=== PATIENT | female | born 1955 | race Hispanic/Latino ===

== ENCOUNTER 2019-12-23 10:47 | Emergency (ER) | payer BC, MEDICARE, OTHER ==
[~2019-12-23] VITALS: Ht 154.9 cm; Wt 74.8 kg
[2019-12-23] MEDS ORDERED: SODIUM CHLORIDE 0.9% 1000ML 1,000 ML IV STA (10:57)
[2019-12-23] MEDS ORDERED: ONDANSETRON HCL INJ 2MG/ML 2ML 2 MG/ML VIAL IV STA ×2 (10:57→13:13)
[2019-12-23] MEDS ORDERED: FENTANYL CITRATE/PF 100MCG/2 ML INJ IV ONE (11:00)
[2019-12-23] MEDS ORDERED: DIATRIZOATE MEGL/DIATRIZOA SOD 30 ML BTL PO ONE (11:12)
[2019-12-23 11:48] LABS: BASOPHILS % 0.6 % (0.0-1.0); EOSINOPHILS # (AUTO) 0.2 (0.0-0.4); EOSINOPHILS % 2.5 % (0.0-6.0); HEMATOCRIT 45.7 % (34.2-44.1); HEMOGLOBIN 15.1 g/dL (12.0-16.0); LYMPHOCYTES # (AUTO) 2.1 (1.0-3.2); LYMPHOCYTES % 33.4 % (18.0-39.1); MEAN CORPUSCULAR VOLUME 90.9 fL (81-99); MONOCYTES # (AUTO) 0.5 (0.2-0.8); MONOCYTES % 7.7 % (4.4-11.3); NEUTROPHILS # (AUTO) 3.5 (2.1-6.9); NEUTROPHILS % 54.9 % (38.7-80.0); PLATELET COUNT 236 x10e3/uL (140-360); RED BLOOD COUNT 5.03 x10e6/uL (3.6-5.1); RED CELL DISTRIBUTION WIDTH 13.1 % (11.7-14.4)
[2019-12-23 12:15] LABS: ALANINE AMINOTRANSFERASE 116 IU/L (0-55); ALBUMIN 4.2 g/dL (3.5-5.0); ALBUMIN/GLOBULIN RATIO 1.4 (0.8-2.0); ALKALINE PHOSPHATASE 94 IU/L (40-150); AMYLASE 51 U/L (25-125); ANION GAP 15.8 mmol/L (8-16); BLOOD UREA NITROGEN 12 mg/dL (7-26); BUN/CREATININE RATIO 13 (6-25); CALCIUM 9.8 mg/dL (8.4-10.2); CARBON DIOXIDE 25 mmol/L (22-29); CHLORIDE 103 mmol/L (98-107); CREATINE KINASE 78 IU/L (29-168); CREATININE, SERUM 0.94 mg/dL (0.57-1.11); EST GLOMERULAR FILTRATION RATE 60 ML/MIN (60-); GLUCOSE 260 mg/dL (74-118); LIPASE 95 U/L (8-78); MAGNESIUM 1.9 MG/DL (1.3-2.1); POTASSIUM 3.8 mmol/L (3.5-5.1); SODIUM 140 mmol/L (136-145)
[2019-12-23 12:20] LABS: BILIRUBIN,URINE NEGATIVE (NEGATIVE); CLARITY,URINE CLEAR (CLEAR); COLOR,URINE YELLOW (YELLOW); KETONES,URINE TRACE (NEGATIVE); LEUKOCYTE ESTERASE ,URINE NEGATIVE (NEGATIVE); NITRITE,URINE NEGATIVE (NEGATIVE); PROTEIN,URINE DIPSTICK NEGATIVE (NEGATIVE); URINE UROBILINOGEN 0.2 mg/dL (0.2 - 1)
[2019-12-23 12:23] LABS: BACTERIA,URINE RARE /HPF; EPITHELIAL CELLS,URINE FEW /LPF; RENAL EPITHELIAL CELLS,URINE FEW
[2019-12-23 12:24] LABS: MUCUS,URINE MANY (RARE)
--- NOTE | 2019-12-23 13:34 | Diagnostic Imaging Report ---
EXAMINATION: CHEST SINGLE (PORTABLE) INDICATION: Abdominal pain COMPARISON: CT abdomen and pelvis of the same day FINDINGS: LINES/TUBES:None LUNGS:The lung volumes are low. No focal consolidation or pulmonary edema. Right basilar subsegmental atelectasis. PLEURA:No pleural effusion or pneumothorax. MEDIASTINUM:The cardiomediastinal silhouette appears normal in size and shape. BONES/SOFT TISSUES:No acute osseous injury. ABDOMEN:No free air under the diaphragm. IMPRESSION: No focal pneumonia or pulmonary edema. Signed by: Patrizia Gibbons MD on 12/23/2019 1:31 PM
--- NOTE | 2019-12-23 13:41 | Diagnostic Imaging Report ---
EXAM: CT Abdomen and Pelvis WITH intravenous contrast INDICATION: Abdominal pain COMPARISON: Chest radiograph of the same day TECHNIQUE: Abdomen and pelvis were scanned utilizing a multidetector helical scanner from the lung base to the pubic symphysis after administration of IV contrast. Coronal and sagittal reformations were obtained. Routine protocol was performed. Scan was performed during portal venous phase. IV CONTRAST: 100mL of Isovue 370 ORAL CONTRAST: Gastrografin RADIATION DOSE: Total DLP: 499 mGy*cm Dose modulation, iterative reconstruction, and/or weight based adjustment of the mA/kV was utilized to reduce the radiation dose to as low as reasonably achievable. FINDINGS: LOWER THORAX: Normal. HEPATOBILIARY: Severe diffuse hepatic steatosis. No focal liver lesion. Numerous subcentimeter calcified granulomas throughout the liver. No biliary ductal dilation. Unremarkable gallbladder. SPLEEN: Scattered subcentimeter calcified granulomas throughout the nonenlarged spleen. PANCREAS: No focal masses or ductal dilatation. ADRENALS: No adrenal nodules. KIDNEYS/URETERS: No hydronephrosis, stones, or solid mass lesions. PELVIC ORGANS/BLADDER: Hysterectomy. PERITONEUM / RETROPERITONEUM: No free air or fluid. LYMPH NODES: No lymphadenopathy. VESSELS: Minimal atherosclerotic calcifications of the nonaneurysmal abdominal aorta and major branches. GI TRACT: No abnormal bowel thickening. No bowel obstruction. Status post appendectomy. BONES AND SOFT TISSUES: No acute osseous injury. No suspicious lytic or blastic lesions. IMPRESSION: No acute findings in the abdomen or pelvis. Specifically, no evidence of small bowel obstruction. Severe diffuse hepatic steatosis. Calcified granulomas throughout the liver and spleen, compatible with prior granulomas disease. Signed by: Patrizia Gibbons MD on 12/23/2019 1:37 PM
[2019-12-23] MEDS ORDERED: ULTRAM50 MG PO (14:02)
[2019-12-23] MEDS ORDERED: ZOFRAN4 MG SL (14:02)
[2019-12-23 14:04] VITALS: BP 148/90
[2019-12-23] MEDS ORDERED: IOPAMIDOL 370 MG/ML 200 ML INFUS..BTL INJ ONE (16:08)
[2019-12-23] MEDS ORDERED: SODIUM CHLORIDE 0.9% 50ML 50 ML ONE (16:08)
[2019-12-24] MEDS ORDERED: ATORVASTATIN CA20 MG PO (13:13)
[2019-12-24] MEDS ORDERED: FLUCONAZOLE100 MG PO (13:13)
[2019-12-24] MEDS ORDERED: CEFDINIR300 MG PO (13:15)
[2019-12-26] MEDS ORDERED: ONDANSETRON HCL4 MG (08:25)
== END 2019-12-23 14:22 | disposition home or self-care (01) ==
LOC: ER 10:47
DX: R10.11 Right upper quadrant pain (principal); R10.13 Epigastric pain; R74.0 Nonspecific elevation of levels of transaminase and lactic acid dehydrogenase [LDH]; N30.91 Cystitis, unspecified with hematuria
CPT/HCPCS: 36415; 71045; 74177; 80053; 81001; 82150; 82550; 82553; 83690; 83735; 84484; 85025; 99284; J2405; J3010; J7030; Q9967

== ENCOUNTER → 2019-12-26 | Day surgery (SDC) | payer MEDICARE ==
[~2019-12-26] MED LIST: ATORVASTATIN CA20 MG PO; CEFDINIR300 MG PO; FENTANYL CITRATE/PF 100MCG/2 ML INJ ONE; FLUCONAZOLE100 MG PO; GLUCAGON FOR INJ 1 MG VIAL ONE; HYOSCYAMINE 0.125 MG TAB ONE; LEVSIN-SL0.125 MG PO; METOCLOPRAMIDE HCL 10 MG/2ML VIAL ONE; MIDAZOLAM HCL 2 MG/2 ML VIAL ONE; ONDANSETRON HCL4 MG; ONDANSETRON ODT8 MG PO; PROPOFOL IV EMULSION 10 MG/ML 50 ML VIAL ONE; ULTRAM50 MG PO; ZOFRAN4 MG SL
--- OUTSIDE RECORDS SUMMARY | 2019-12-26 09:34 | XMS REPORT ---
Author Author [facility] Address Unknown Phone Unavailable Care Team Providers Care Solar Business Developer Name Role Phone YUKO CORMIER Unavailable Unavailable Problems This patient has no known problems. Allergies, Adverse Reactions, Alerts This patient has no known allergies or adverse reactions. Medications This patient has no known medications. 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 No focal consolidation or pulmonary edema. Right basilar subsegmental atelectasis. PLEURA:No pleural effusion or pneumothorax. MEDIASTINUM:The cardiomediastinal silhouette appears normal in size and shape. BONES/SOFT TISSUES:No acute osseous injury. ABDOMEN:No free air under the diaphragm. IMPRESSION: No focal pneumonia or pulmonary edema. Signed by: Geovanna Rincon MD on 12/23/2019 1:31 PM Dictated By: GEOVANNA RINCON MD [id number] Transcribed By: GILDARDO on 12/23/191330 COPY TO: YULIET GILMORE NP CT ABDOMEN/PELVIS W 2019-12-23 13:31:00 [place] [address] Patient Name: OPAL SHETH MR #: [id number] : 1955 Age/Sex: 64/F Req #: [id number] Adm Physician: Ordered by: YULIET GILMORE NP Report #: [id number] Location: ER Room/Bed: Procedure: [id number] CT/CT ABDOMEN/PELVIS W Exam Date: 12/23/19 Exam Time: 1250 REPORT STATUS: Signed EXAM: CT Abdomen and Pelvis WITH intravenous contrast INDICATION: Abdominal pain COMPARISON: Chest radiograph of the same day TECHNIQUE: Abdomen and pelvis were scanned utilizing a multidetector helical scanner from the lung base to the pubic symphysis after administration of IV contrast. Coronal and sagittal reformations were obtained. Routine protocol was performed. Scan was performed during portal venous phase. IV CONTRAST: 100mL of Isovue 370 ORAL CONTRAST: Gastrografin RADIATION DOSE: Total DLP: 499 mGy*cm Dose modulation, iterative reconstruction, and/or weight based adjustment of the mA/kV was utilized to reduce the radiation dose to as low as reasonably achievable. FINDINGS: LOWER THORAX: Normal. HEPATOBILIARY: Severe diffuse hepatic steatosis. No focal liver lesion. Numerous subcentimeter calcified granulomas throughout the liver. No biliary ductal dilation. Unremarkable gallbladder. SPLEEN: Scattered subcentimeter calcified granulomas throughout the nonenlarged spl een. PANCREAS: No focal masses or ductal dilatation. ADRENALS: No adrenal nodules. KIDNEYS/URETERS: No hydronephrosis, stones, or solid mass lesions. PELVIC ORGANS/BLADDER: Hysterectomy. PERITONEUM / RETROPERITONEUM: No free air or fluid. LYMPH NODES: No lymphadenopathy. VESSELS: Minimal atherosclerotic calcifications of the nonaneurysmal abdominal aorta and major branches. GI TRACT: No abnormal bowel thickening. No bowel obstruction. Status post appendectomy. BONES AND SOFT TISSUES: No acute osseous injury. No suspicious lytic or blastic lesions. IMPRESSION: No acute findings in the abdomen or pelvis. Specifically, no evidence of small bowel obstruction. Severe diffuse hepatic steatosis. Calcified granulomas throughout the liver and spleen, compatible with prior granulomas disease. Signed by: Geovanna Rincon MD on 12/23/2019 1:37 PM Dictated By: GEOVANNA RINCON MD [id number] Transcribed By: GILDARDO on 12/23/19 1337 COPY TO: YULIET GILMORE NP
[2019-12-26 10:55] VITALS: BP 115/52
--- NOTE | 2019-12-26 11:05 | Operative Report ---
DATE OF PROCEDURE: 12/26/2019 SURGEON: Surya aHssan MD PROCEDURE: EGD with biopsies and colonoscopy with polypectomy and biopsies. INDICATIONS FOR EGD: Upper abdominal pain, nausea, and vomiting. INDICATION FOR COLONOSCOPY: Diarrhea, chronic, rectal bleeding. MEDICATIONS: The patient was done under MAC, please see anesthesiologist's note. PROCEDURE IN DETAIL: With the patient in left lateral decubitus position, a flexible fiberoptic Olympus gastroscope was introduced into the esophagus under direct visualization without any difficulty. There were some patchy erythema noted in the distal esophagus. A minute tongue of velvety red mucosa was noted to extend proximally from the GE junction, that was biopsied to rule out Cortez. The scope was then advanced with ease into the stomach. Mucosa overlying the antrum and the body revealed some patchy erythema and [id number] edema, and biopsies were obtained and sent to stain for H pylori. Pylorus was of normal contour and shape, it was intubated with ease and the scope was advanced all the way to the second portion of the duodenum. Biopsies were obtained from the proximal second portion and duodenal bulb to rule out sprue. The scope was then withdrawn back into the stomach and retroflexed. Mucosa overlying the fundus and cardia appeared to be within normal limits. The scope was then straightened out, it was subsequently withdrawn. The patient tolerated the procedure well. IMPRESSION: 1. Distal esophagitis. 2. Rule out Cortez. 3. Gastritis, biopsied. Biopsies sent to stain for Helicobacter pylori. 4. Rule out sprue. PLAN: Follow up histology. Initiate Protonix 40 mg one p.o. q.a.m. before meals. The patient was then turned around. After adequate lubrication of the anal canal, a flexible fiberoptic Olympus colonoscope was inserted into the rectum with ease and advanced all the way to the cecum. Prep overall was fair and visualization was fair. Whatever was visualized the mucosa overlying the cecum appeared to be within normal limits. The ileocecal valve was intubated and the scope was advanced into the terminal ileum. Biopsies were obtained. The scope was then withdrawn slowly. Mucosa overlying the ascending and the distal two-thirds of the transverse colon grossly appeared to be within normal limits. One polyp was noted in the distal transverse colon, that was removed per hot biopsy forceps and site was hemoclipped x2. Mild patchy inflammatory changes noted in the left colon, multiple random biopsies were obtained. Some minimal diverticulosis was noted in the sigmoid colon. The scope was then retroflexed into the distal rectum and small internal hemorrhoids were noted, none of which was actively bleeding. The scope was then straightened out, it was subsequently withdrawn after securing an adequate stool specimen that was sent for the appropriate stool studies. The patient tolerated the procedure well. Small external hemorrhoids were also noted. IMPRESSION: 1. Transverse colon polyp, hot biopsied, site hemoclipped x2. 2. Mild patchy left-sided colitis. 3. Diverticulosis, minimal, sigmoid colon. 4. Proctitis, mild. 5. Internal hemorrhoids, none actively bleeding. 6. External hemorrhoids. PLAN: Follow up histology. Follow up stool studies. Initiate Bentyl 10 mg one p.o. t.i.d. VSL#3 one p.o. b.i.d. Anucort before meals suppositories b.i.d. x10 days and p.r.n. The patient might benefit from a followup colonoscopy in 5 years. Surya Hassan MD [facility] [place] /[id number] cc: Ming Guzman MD
[2019-12-26 15:31] LABS: C DIFFICILE TOXIN A&B AMP PROB NEGATIVE (NEGATIVE); WBC,FECAL (FECAL LACTOFERRIN) NEGATIVE (NEGATIVE)
== END | disposition home or self-care (01) ==
LOC: OR 07:45
PROVIDERS: ATTEND Internal Medicine Gastroenterology
DX: K29.50 Unspecified chronic gastritis without bleeding (principal); D12.3 Benign neoplasm of transverse colon; K51.50 Left sided colitis without complications; K29.80 Duodenitis without bleeding; K20.9 Esophagitis, unspecified; K22.8 Other specified diseases of esophagus; K57.30 Diverticulosis of large intestine without perforation or abscess without bleeding; K62.89 Other specified diseases of anus and rectum; K64.8 Other hemorrhoids; K64.4 Residual hemorrhoidal skin tags; G47.33 Obstructive sleep apnea (adult) (pediatric); I25.10 Atherosclerotic heart disease of native coronary artery without angina pectoris; I25.2 Old myocardial infarction; E78.5 Hyperlipidemia, unspecified; K76.0 Fatty (change of) liver, not elsewhere classified; D71 Functional disorders of polymorphonuclear neutrophils; Z01.810 Encounter for preprocedural cardiovascular examination; Z68.31 Body mass index [BMI] 31.0-31.9, adult; Z95.5 Presence of coronary angioplasty implant and graft
CPT/HCPCS: 43239; 45380; 45384; 83630; 83993; 87045; 87177; 87328; 87493; 93005; J1610; J2250; J2704; J2765; J3010; 45378

== ENCOUNTER 2019-12-30 16:14 | Emergency (ER) | payer BC, MEDICARE, OTHER ==
[~2019-12-30] VITALS: Ht 154.9 cm; Wt 74.8 kg
[~2019-12-30 16:14] MED LIST changes: -FENTANYL CITRATE/PF 100MCG/2 ML INJ ONE; -GLUCAGON FOR INJ 1 MG VIAL ONE; -HYOSCYAMINE 0.125 MG TAB ONE; -LEVSIN-SL0.125 MG PO; -METOCLOPRAMIDE HCL 10 MG/2ML VIAL ONE; -MIDAZOLAM HCL 2 MG/2 ML VIAL ONE; -ONDANSETRON ODT8 MG PO; -PROPOFOL IV EMULSION 10 MG/ML 50 ML VIAL ONE
[2019-12-30] MEDS ORDERED: ONDANSETRON HCL INJ 2MG/ML 2ML 2 MG/ML VIAL IV STA (17:21)
[2019-12-30] MEDS ORDERED: MORPHINE SULFATE INJ 4 MG/ML INJ 1ML IV STA (17:21)
[2019-12-30] MEDS ORDERED: SODIUM CHLORIDE 0.9% 1000ML 1,000 ML IV SCH (17:30)
[2019-12-30] MEDS ORDERED: SODIUM CHLORIDE FLUSH 10 ML SYR INJ PRN (17:30)
[2019-12-30] MEDS ORDERED: SODIUM CHLORIDE 0.9% 50ML 50 ML ONE (17:44)
[2019-12-30] MEDS ORDERED: IOPAMIDOL 370 MG/ML 200 ML INFUS..BTL INJ ONE (17:44)
[2019-12-30] MEDS ORDERED: ONDANSETRON HCL INJ 2MG/ML 2ML 2 MG/ML VIAL ONE (18:22)
[2019-12-30] MEDS ORDERED: SODIUM CHLORIDE 0.9% 1000ML 1,000 ML ONE (18:22)
[2019-12-30] MEDS ORDERED: MORPHINE SULFATE INJ 4 MG/ML INJ 1ML ONE (18:22)
--- NOTE | 2019-12-30 18:32 | Diagnostic Imaging Report ---
EXAM: CT Abdomen and Pelvis WITH contrast INDICATION: Abdominal pain. Rectal bleeding. Bloating. COMPARISON: 12/23/2019 TECHNIQUE: Abdomen and pelvis were scanned utilizing a multidetector helical scanner from the lung base to the pubic symphysis after administration of IV contrast. Coronal and sagittal reformations were obtained. Routine protocol was performed. Scan was performed when during portal venous phase. IV CONTRAST: 100 mL of Isovue 370 ORAL CONTRAST: None COMPLICATIONS: None RADIATION DOSE: Total DLP: 765 mGy*cm Estimated effective dose: (DLP x 0.015 x size factor) mSv CTDIvol has been reviewed. It is below the limits set by the Radiation Protocol Committee (RPC). Dose modulation, iterative reconstruction, and/or weight based adjustment of the mA/kV was utilized to reduce the radiation dose to as low as reasonably achievable. FINDINGS: LOWER THORAX: Normal. HEPATOBILIARY: Severe diffuse hepatic steatosis. No focal liver lesion. Numerous subcentimeter calcified granulomas throughout the liver. No biliary ductal dilation. Unremarkable gallbladder. SPLEEN: Scattered subcentimeter calcified granulomas throughout the nonenlarged spleen. PANCREAS: No focal masses or ductal dilatation. ADRENALS: No adrenal nodules. KIDNEYS/URETERS: No hydronephrosis, stones, or solid mass lesions. PELVIC ORGANS/BLADDER: Hysterectomy. PERITONEUM / RETROPERITONEUM: No free air or fluid. LYMPH NODES: No lymphadenopathy. VESSELS: Minimal atherosclerotic calcifications of the nonaneurysmal abdominal aorta and major branches. GI TRACT: No abnormal bowel thickening. No bowel obstruction. Status post appendectomy. Metallic clips in the ascending colon best seen on series 2 image 53. BONES AND SOFT TISSUES: No acute osseous injury. No suspicious lytic or blastic lesions. IMPRESSION: No acute findings in the abdomen or pelvis. Specifically, no evidence of small bowel obstruction. Metallic clips in the ascending colon best seen on series 2 image 53. Severe diffuse hepatic steatosis. Calcified granulomas throughout the liver and spleen, compatible with prior granulomas disease. Signed by: Dr. Waqas Peraza M.D. on 12/30/2019 6:29 PM
[2019-12-30 19:54] VITALS: BP 159/84
[2019-12-30] MEDS ORDERED: LEVSIN-SL0.125 MG PO (19:55)
[2019-12-30] MEDS ORDERED: ONDANSETRON ODT8 MG PO (19:55)
== END 2019-12-30 20:02 | disposition home or self-care (01) ==
LOC: FSED 16:14
DX: R10.84 Generalized abdominal pain (principal); R11.0 Nausea
CPT/HCPCS: 74177; 80053; 81003; 85025; 85610; 96374; 99284; J2405; J7030; Q9967; J2270

== ENCOUNTER → 2020-05-11 | Day surgery (SDC) | payer MEDICARE, OTHER ==
[2020-05-06 13:43] LABS: BASOPHILS % 0.5 % (0.0-1.0); EOSINOPHILS # (AUTO) 0.2 (0.0-0.4); EOSINOPHILS % 2.1 % (0.0-6.0); HEMATOCRIT 45.9 % (34.2-44.1); HEMOGLOBIN 14.6 g/dL (12.0-16.0); LYMPHOCYTES # (AUTO) 2.5 (1.0-3.2); LYMPHOCYTES % 31.8 % (18.0-39.1); MEAN CORPUSCULAR HEMOGLOBIN 28.7 pg (28-32); MEAN CORPUSCULAR HGB CONC 31.8 g/dL (31-35); MEAN CORPUSCULAR VOLUME 90.4 fL (81-99); MONOCYTES # (AUTO) 0.5 (0.2-0.8); MONOCYTES % 6.6 % (4.4-11.3); NEUTROPHILS # (AUTO) 4.5 (2.1-6.9); NEUTROPHILS % 58.4 % (38.7-80.0); PLATELET COUNT 216 x10e3/uL (140-360); RED BLOOD COUNT 5.08 x10e6/uL (3.6-5.1)
[2020-05-06 14:01] LABS: ANION GAP 15.7 mmol/L (8-16); BLOOD UREA NITROGEN 14 mg/dL (7-26); BUN/CREATININE RATIO 16 (6-25); CALCIUM 9.7 mg/dL (8.4-10.2); CARBON DIOXIDE 25 mmol/L (22-29); CHLORIDE 105 mmol/L (98-107); CREATININE, SERUM 0.88 mg/dL (0.57-1.11); EST GLOMERULAR FILTRATION RATE > 60 ML/MIN (60-); GLUCOSE 182 mg/dL (74-118); POTASSIUM 4.7 mmol/L (3.5-5.1); SODIUM 141 mmol/L (136-145)
[~2020-05-11] MED LIST changes: +BUPIVACAINE 0.25%/EPI 30ML SDV INJ ONE; +FENTANYL CITRATE/PF 100MCG/2 ML INJ ONE; +HYDROCODONE/APAP 7.5MG-325MG 1 EA TAB ONE; +KETOROLAC TROMETHAMINE 30 MG/ML VIAL ONE; +LEVSIN-SL0.125 MG PO; +LIDOCAINE HCL 1% LOCAL INJ 20 ML VIAL ONE; +LIDOCAINE HCL 2% 30 ML TUBE ONE; +LIDOCAINE HCL 2% LOCAL INJ 5 ML SDV VIAL INJ ONE; +MELOXICAM7.5 MG PO; +MIDAZOLAM HCL 2 MG/2 ML VIAL ONE; +ONDANSETRON HCL INJ 2MG/ML 2ML 2 MG/ML VIAL ONE; +ONDANSETRON ODT8 MG PO; +PHENYLEPHRINE HCL 1% 10 MG/ML VIAL ONE; +PROPOFOL IV EMULSION 10 MG/ML 20 ML VIAL ONE; +PROTONIX20 MG PO; +SEVOFLURANE INHAL SOLN 250 ML PEN BTL ONE
[2020-05-11 12:15] VITALS: BP 133/80
--- NOTE | 2020-05-11 14:08 | Operative Report ---
DATE OF PROCEDURE: 05/11/2020 SURGEON: Scar Manzano MD PREOPERATIVE DIAGNOSIS: Thrombosed prolapsing internal and external hemorrhoids. POSTOPERATIVE DIAGNOSIS: Thrombosed prolapsing internal and external hemorrhoids. OPERATION PERFORMED: Internal and external hemorrhoidectomy. ANESTHESIA: General. COMPLICATIONS: None. ESTIMATED BLOOD LOSS: Minimal. DESCRIPTION OF PROCEDURE: With the patient lying in bed in the supine position under good general endotracheal anesthesia, the patient was placed in lithotomy and the perineum was prepped with Betadine solution and draped in the usual manner. A complete anorectal block was then performed with a combination of 0.25% Marcaine and 1% xylocaine with epinephrine. After this was done, examination revealed the patient to have a large group of protruding prolapsing internal hemorrhoids at the 12 o'clock position with an external component to it. There was a 2nd group at the 4 o'clock position and group at the 12 o'clock position was done 1st. The base was ligated with an 0 chromic suture. The external component was then slowly and carefully resected and totally and completely removed. After this was done, the base of the hemorrhoid was then further oversewn with the same 0 chromic suture and the external incision was then closed by approximating the skin and the mucosa with interrupted sutures of 3-0 chromic. The hemorrhoid at the 4 o'clock position was then ligated with an 0 chromic suture. Hemostasis was ascertained. A Gelfoam pack impregnated with Xylocaine was placed. The dressing was applied. The sponge, lap, and needle count was correct. The patient tolerated the procedure well and returned to the recovery room in stable condition. MD ABDIAS Bullock/GILAL /[id number]
== END | disposition home or self-care (01) ==
LOC: OR 06:38
PROVIDERS: ATTEND Surgery
DX: K64.5 Perianal venous thrombosis (principal); K64.8 Other hemorrhoids; G47.33 Obstructive sleep apnea (adult) (pediatric); E78.5 Hyperlipidemia, unspecified; I25.10 Atherosclerotic heart disease of native coronary artery without angina pectoris; Z95.5 Presence of coronary angioplasty implant and graft
CPT/HCPCS: 36415; 46083; 46999; 80048; 85025; 93005; J1885; J2001 ×2; J2250; J2370; J2405; J2704; J3010; U0002

== ENCOUNTER 2020-05-27 11:43 | Emergency (ER) | payer BC, MEDICARE, OTHER ==
[~2020-05-27] VITALS: Ht 154.9 cm; Wt 68.9 kg
[~2020-05-27 11:43] MED LIST changes: -BUPIVACAINE 0.25%/EPI 30ML SDV INJ ONE; -FENTANYL CITRATE/PF 100MCG/2 ML INJ ONE; -HYDROCODONE/APAP 7.5MG-325MG 1 EA TAB ONE; -KETOROLAC TROMETHAMINE 30 MG/ML VIAL ONE; -LIDOCAINE HCL 1% LOCAL INJ 20 ML VIAL ONE; -LIDOCAINE HCL 2% 30 ML TUBE ONE; -LIDOCAINE HCL 2% LOCAL INJ 5 ML SDV VIAL INJ ONE; -MIDAZOLAM HCL 2 MG/2 ML VIAL ONE; -ONDANSETRON HCL INJ 2MG/ML 2ML 2 MG/ML VIAL ONE; -PHENYLEPHRINE HCL 1% 10 MG/ML VIAL ONE; -PROPOFOL IV EMULSION 10 MG/ML 20 ML VIAL ONE; -SEVOFLURANE INHAL SOLN 250 ML PEN BTL ONE
--- OUTSIDE RECORDS SUMMARY | 2020-05-27 11:55 | XMS REPORT | Continuity of Care Document ---
Author Author [facility] Organization [facility] Address [address] [place] [address] Phone Unavailable Care Team Providers Care Citrus Picker Name Role Phone AMBER CADET MD PCP KOURTNEY COLLADO Attphys Unavailable YUKO CORMIER Attphys Unavailable Payers Payer Name Policy Type Policy Number Effective Date Expiration Date S [facility] [id number] [facility] [id number] [id number] [facility] Problems This patient has no known problems. Allergies, Adverse Reactions, Alerts This patient has no known allergies or adverse reactions. Medications Ordered Medication Name Filled Medication Name Start Date Stop Da te Current Medication? Ordering Clinician Indication Dosage Frequency Signature (SIG) Comments Components Source Hyoscyamine Sulfate (Levsin-Sl) 0.125 Mg Tab.subl Hyos cyamine Sulfate (Levsin- Sl) 0.125 Mg Tab.subl 2019-12-30 00:00:00 Yes Adria Collado 2 Every 6 Hours as needed for Abdominal Pain [facility] Ondansetron (Ondansetron Odt) 8 Mg Tab.rapdis Ondanset reg (Ondansetron Odt) 8 Mg Tab.rapdis 2019-12-30 00:00:00 Yes Adria Collado 1 Every 6 Hours as needed for Nausea And Vomiting [facility] Ondansetron Hcl (Zofran*) 4 Mg Tablet, 4 Mg Sublingual Ondansetron Hcl (Zofran*) 4 Mg Tablet, 4 Mg Sublingual 2019-12-23 00:00:00 2019-12-24 00:00:00 No Bimal L Gilmore Sales Planner 4 Every 6 Hours as needed for Nausea [facility] Tramadol Hcl (Ultram) 50 Mg Tablet, 50 Mg Oral Tramado l Hcl (Ultram) 50 Mg Tablet, 50 Mg Oral 2019-12-23 00:00:00 2019-12-24 00:00:00 No Puma Gilmore Sales Planner 50 Every 6 Hours as needed for Abdominal Pa in [facility] Atorvastatin Calcium 20 Mg Tablet Atorvastatin Calcium 20 Mg Tablet Yes 20 Daily [facility] Cefdinir (Omnicef) 300 Mg Capsule Cefdinir (Omnicef) 300 Mg Capsule Yes 300 Twice A Day [facility] Ondansetron Hcl 4 Mg Tablet Ondansetron Hcl 4 Mg Tablet Yes As Needed [facility] Fluconazole 100 Mg Tablet, 150 Mg Oral Fluconazole 100 Mg Tablet , 150 Mg Oral 2019-12-26 00:00:00 No 150 One Dose [facility] Procedures Procedure Date / Time Performed Performing Clinician Sourc e EGD with biopsy 2019-12-26 00:00:00 RAIMUNDO SU [facility] Computed tomography of abdomen and pelvis with contrast 2019 00:00:00 BIMAL GILMORE [facility] Encounters Start Date/Time End Date/Time En[facility] ID Source 2019-12-30 16:14:00 2019-12-30 20:02:00 Departed Emergency Room 1 ADRIA COLLADO [facility] [id number] [facility] 2019-12-26 07:45:00 2019-12-26 07:45:00 Registered Surgical Day Care [facility] [id number] [facility] 2019-12-23 10:47:00 2019-12-23 14:22:00 Departed Emergency Room 1 HENRIETTACHEPEKaushikSTEVENKIM [facility] [id number] [facility] Results Test Description Test Time Test Comments Results Result Comments Source CT ABD/PEL WITH CONTRAST-HOPD 2019-12-30 18:22:00 [facility] [address] [address] Patient Name: OPAL SHETH MR #: [id number] : 1955 Age/Sex: 64/F Req #: [id number] Adm Physician: Ordered by: ADRIA COLLADO Report #: [id number] Location: [facility] Room/Bed: Procedure: [id number] HOPD/CT ABD/PEL WITH CONTRAST-HOPD Exam Date: 12/30/19 Exam Time: 1817 REPORT STATUS: Signed EXAM: CT Abdomen and Pelvis WITH contrast INDICATION: Abdominal pain. Rectal bleeding. Bloating. COMPARISON: 12/23/2019 TECHNIQUE: Abdomen and pelvis were scanned utilizing a multidetector helical scanner from the lung base to the pubic symphysis after administration of IV contrast. Coronal and sagittal reformations were obtained. Routine protocol was performed. Scan was performed when during portal venous phase. IV CONTRAST: 100 mL of Isovue 370 ORAL CONTRAST: None COMPLICATIONS: None RADIATION DOSE: Total DLP: 765 mGy*cm Estimated effective dose: (DLP x 0.015 x size facto r) mSv CTDIvol has been reviewed. It is below the limits set by the Radiation Protocol Committee (RPC). Dose modulation, iterative reconstruction, and/or weight based adjustment of the mA/kV was utilized to reduce the radiation dose to as low as reasonably achievable. FINDINGS: LOWER THORAX: Normal. HEPATOBILIARY: Severe diffuse hepatic steatosis. No focal liver lesion. Numerous subcentimeter calcified granulomas throughout the liver. No biliary ductal dilation. Unremarkable gallbladder. SPLEEN: Scattered subcentimeter calcified granulomas throughout the nonenlarged spleen. PANCREAS: No focal masses or ductal dilatation. ADRENALS: No adrenal nodules. KIDNEYS/URETERS: No hydronephrosis, stones, or solid mass lesions. PELVIC ORGANS/BLADDER: Hysterectomy. PERITONEUM / RETROPERITONEUM: No free air or fluid. LYMPH NODES: No lymphadenopathy. VESSELS: Minimal atherosclerotic calcifications of the nonaneurysmal abdominal aorta and major branches. GI TRACT: No abnormal bowel thickening. No bowel obstruction. Status post appendectomy. Metallic clips in the ascending colon best seen on series 2 image 53. BONES AND SOFT TISSUES: No acute osseous injury. No suspicious lytic or blastic lesions. IMPRESSION: No acute findings in the abdomen or pelvis. Specifically, no evidence of small bowel obstruction. Metallic clips in the ascending colon best seen on series 2 image 53. Severe diffuse hepatic steatosis. Calcified granulomas throughout the liver and spleen, compatible with prior granulomas disease. Signed by: Dr. Wero Urbano M.D. on 12/30/2019 6:29 PM Dictated By: WERO URBANO MD, MD 28 Transcribed By: GILDARDO on 12/30/191828 COPY TO: ADRIA COLLADO Stool Calprotectin 2019-12-30 13:09:00 Test Item Stool Calprotectin (test code = 66954-5) <16 0-120 Concentration Interpretation Follow-Up<16 - 50 ug/g Normal None>50 -120 ug/g Borderline Re-evaluate in 4-6 weeks >120 ug/g Abnormal Repeat as clinically indicatedPerformed at: [facility] Lab[address] [id number] Director: Aviva Thorne MD, Phone: [phone] [facility] Marshalltool Lactoferrin (LAB)2019-12-26 15:31:00* Test Item Value Reference Range Interpretation Comments Stool Lactoferrin (LAB) (test code = 13276-6) NEGATIVE NEGATIVE Testing on stool aspirate specimens is outside chemical plant operator claims since specime n type not validated on this assay.[facility] Clostridium Difficile Toxin A & [id number] 15:31:00* Test Item Value Reference Range Interpretation Comments Clostridium Difficile Toxin A & B (test code = 766392643) NEGATIVE NEGATIVE Testing on stool aspirate specimens is outside chemical plant operator claims since specime n type not validated on this assay.[facility] ([facility])2019-12-23 13:31:00 [id number] [address] Patient Name: OPAL SHETH MR #: [id number] : 1955 Age/Sex: 64/F Req #: [id number] Adm Physician: Ordered by: BIMAL GILMORE NP Report #: [id number] Location: ER Room/Bed: Procedure: [id number] DX /CHEST SINGLE (PORTABLE) Exam Date: 12/23/19 Exam Ti me: 1250 REPORT STATUS: Signed E XAMINATION: CHEST SINGLE (PORTABLE) INDICATION: Abdominal pain CO MPARISON: CT abdomen and pelvis of the same day FINDINGS: LINES/T UBES:None LUNGS:The lung volumes are low. No focal consolidation or pulmona ry edema. Right basilar subsegmental atelectasis. PLEURA:No pleural effus ion or pneumothorax. MEDIASTINUM:The cardiomediastinal silhouette appears n ormal in size and shape. BONES/SOFT TISSUES:No acute osseous injury. A BDOMEN:No free air under the diaphragm. IMPRESSION: No focal pneumoni a or pulmonary edema. Signed by: Geovanna Gibbons MD on 12/23/2019 1:31 PM Dictated By: GEOVANNA GIBBONS MD 1331 Transcribed By: GILDARDO on 12/23/19 1331 COPY TO: BIMAL GILMORE NP CT ABDOMEN/PELVIS [id number] 13:31:[address] [address] Patient Name: OPAL SHETH MR #: [id number] : 1955 Age/Sex: 64/F Req #: [id number] Adm Physician: Ordered by: BIMAL GILMORE NP Report #: [id number] Location: ER Room/Bed: Procedure: [id number] CT /CT ABDOMEN/PELVIS W Exam Date: 12/23/19 Exam Time: 1250 REPORT STATUS: Signed EXAM: CT Abdomen and Pelvis WITH intravenous contrast INDICATION: Abdominal pa in COMPARISON: Chest radiograph of the same day TECHNIQUE: Abdomen and pelvis were scanned utilizing a multidetector helical scanner from the lung b ase to the pubic symphysis after administration of IV contrast. Coronal and sa gittal reformations were obtained. Routine protocol was performed. Scan was pe rformed during portal venous phase. IV CONTRAST: 100mL of Isovue 370 ORAL CONTRAST: Gastrografin RADIATION DOSE: Total DLP: 499 mGy*cm Dose modulation, iterative reconstruction, and/or weight based adjustment of t he mA/kV was utilized to reduce the radiation dose to as low as reasonably ach ievable. FINDINGS: LOWER THORAX: Normal. HEPATOBILIARY: Severe diff use hepatic steatosis. No focal liver lesion. Numerous subcentimeter calcified granulomas throughout the liver. No biliary ductal dilation. Unremarkable gal lbladder. SPLEEN: Scattered subcentimeter calcified granulomas throughout t he nonenlarged spleen. PANCREAS: No focal masses or ductal dilatation. ADRENALS: No adrenal nodules. KIDNEYS/URETERS: No hydronephrosis, stones, or solid mass lesions. PELVIC ORGANS/BLADDER: Hysterectomy. PERITONEUM / R ETROPERITONEUM: No free air or fluid. LYMPH NODES: No lymphadenopathy. VESSE LS: Minimal atherosclerotic calcifications of the nonaneurysmal abdominal aort a and major branches. GI TRACT: No abnormal bowel thickening. No bowel obst ruction. Status post appendectomy. BONES AND SOFT TISSUES: No acute osseo us injury. No suspicious lytic or blastic lesions. IMPRESSION: No acut e findings in the abdomen or pelvis. Specifically, no evidence of small bowel obstruction. Severe diffuse hepatic steatosis. Calcified granulomas th roughout the liver and spleen, compatible with prior granulomas disease. Signed by: Geovanna Gibbons MD on 12/23/2019 1:37 PM Dictated By: GEOVANNA GIBBONS MD 36 Transcribed By: ELIZABETH VALENZUELA on 12/23/197 COPY TO: BIMAL GILMORE NP Creatine Kinase [id number] 12:25:00* Test Item Value Reference Range Interpretation Comments Creatine Kinase MB (test code = 47514-6) 1.00 0-5.0 [facility] [id number] 12:25:00* Test Item Value Reference Range Interpretation Comments Troponin I (test code = 55002-4) < 0.001 0-0.300 [facility] Heights[facility] Kinase [id number] 12:25:00* Test Item Value Reference Range Interpretation Comments Creatine Kinase MB (test code = 52024-4) 1.00 0-5.0 [facility] Heights[facility]roponin [id number] 12:25:00* Test Item Value Reference Range Interpretation Comments Troponin I (test code = 62178-6) < 0.001 0-0.300 [facility] [id number] 12:24:00* Test Item Value Reference Range Interpretation Comments Urine WBC (test code = 5821-4) 6-10 0-5 H [facility] [id number] 12:24:00* Test Item Value Reference Range Interpretation Comments Urine RBC (test code = 56610-0) 6-10 0-5 H [facility] Jmypkgwe6483-18-47 12:24:00* Test Item Value Reference Range Interpretation Comments Urine Bacteria (test code = 77988-1) RARE NONE [facility] Epithelial Sjdhe9407-74-11 12:24:00 * Test Item Value Reference Range Interpretation Comments Urine Epithelial Cells (test code = 39386-7) FEW NONE [facility] Renal Epithelial Pmjwc3298-46-32 12:24:00* Test Item Value Reference Range Interpretation Comments Urine Renal Epithelial Cells (test code = 34677-6) FEW NON E H [facility] Hqsoh5921-70-74 12:24:00* Test Item Value Reference Range Interpretation Comments Urine Mucus (test code = 8247-9) MANY RARE H [facility] [id number] 12:24:00* Test Item Value Reference Range Interpretation Comments Urine WBC (test code = 5821-4) 6-10 0-5 H [facility] [id number] 12:24:00* Test Item Value Reference Range Interpretation Comments Urine RBC (test code = 43112-1) 6-10 0-5 H [facility] Bxgyrtph0525-80-70 12:24:00* Test Item Value Reference Range Interpretation Comments Urine Bacteria (test code = 42017-6) RARE NONE [facility] Epithelial Mwocj8613-93-36 12:24:00 * Test Item Value Reference Range Interpretation Comments Urine Epithelial Cells (test code = 48779-8) FEW NONE [facility] Renal Epithelial Pdrop2456-23-67 12:24:00* Test Item Value Reference Range Interpretation Comments Urine Renal Epithelial Cells (test code = 03389-7) FEW NON E H [facility] Imwmh1716-44-36 12:24:00* Test Item Value Reference Range Interpretation Comments Urine Mucus (test code = 8247-9) MANY RARE H [facility] Ldjqo6726-27-71 12:20:00* Test Item Value Reference Range Interpretation Comments Urine Color (test code = 5778-6) YELLOW YELLOW [facility] Ydfqffj8797-57-29 12:20:00* Test Item Value Reference Range Interpretation Comments Urine Clarity (test code = 40629-8) CLEAR CLEAR [facility] Specific Eqzizul6456-25-26 12:20:00 * Test Item Value Reference Range Interpretation Comments Urine Specific [place] (test code = 5811-5) 1.025 1.010-1.02 5 [facility] [id number] 12:20:00* Test Item Value Reference Range Interpretation Comments Urine pH (test code = 06493-0) 5.5 5-7 [facility] Leukocyte Twzsjgpx2430-72-91 12:20:00* Test Item Value Reference Range Interpretation Comments Urine Leukocyte Esterase (test code = 5799-2) NEGATIVE NEGATIVE [facility] Pvxfjdw7873-30-09 12:20:00* Test Item Value Reference Range Interpretation Comments Urine Nitrite (test code = 44914-0) NEGATIVE NEGATIVE [facility] Dxipunh0239-56-66 12:20:00* Test Item Value Reference Range Interpretation Comments Urine Protein (test code = 5804-0) NEGATIVE NEGATIVE [facility] Glucose (UA)2019-12-23 12:20:00* Test Item Value Reference Range Interpretation Comments Urine Glucose (UA) (test code = 2349-9) 2+ NEGATIVE [facility] Oojjxhm2413-97-41 12:20:00* Test Item Value Reference Range Interpretation Comments Urine Ketones (test code = 47716-1) TRACE NEGATIVE H [facility] Lojwpknofffh7650-50-36 12:20:00* Test Item Value Reference Range Interpretation Comments Urine Urobilinogen (test code = 48902-5) 0.2 0.2-1 [facility] Rofzgtcrp3880-95-16 12:20:00* Test Item Value Reference Range Interpretation Comments Urine Bilirubin (test code = 1978-6) NEGATIVE NEGATIVE [facility] Gdoya3862-63-92 12:20:00* Test Item Value Reference Range Interpretation Comments Urine Blood (test code = 28341-2) TRACE NEGATIVE H [facility] Vhpam4821-33-06 12:20:00* Test Item Value Reference Range Interpretation Comments Urine Color (test code = 5778-6) YELLOW YELLOW [facility] Tvytvek1872-80-81 12:20:00* Test Item Value Reference Range Interpretation Comments Urine Clarity (test code = 68105-2) CLEAR CLEAR [facility] Specific Bxpgnmx5689-48-98 12:20:00 * Test Item Value Reference Range Interpretation Comments Urine Specific [place] (test code = 5811-5) 1.025 1.010-1.02 5 [facility] qY7517-97-10 12:20:00* Test Item Value Reference Range Interpretation Comments Urine pH (test code = 11713-8) 5.5 5-7 [facility] Leukocyte Tkvsoper1025-37-13 12:20:00* Test Item Value Reference Range Interpretation Comments Urine Leukocyte Esterase (test code = 5799-2) NEGATIVE NEGATIVE [facility] Tsaehkv7713-67-97 12:20:00* Test Item Value Reference Range Interpretation Comments Urine Nitrite (test code = 21350-7) NEGATIVE NEGATIVE [facility] Ofwwzqk0807-22-66 12:20:00* Test Item Value Reference Range Interpretation Comments Urine Protein (test code = 5804-0) NEGATIVE NEGATIVE [facility] Glucose (UA)2019-12-23 12:20:00* Test Item Value Reference Range Interpretation Comments Urine Glucose (UA) (test code = 2349-9) 2+ NEGATIVE [facility] Eiyznfv0785-09-49 12:20:00* Test Item Value Reference Range Interpretation Comments Urine Ketones (test code = 84250-7) TRACE NEGATIVE H [facility] Qlvewbapyeyl2340-32-87 12:20:00* Test Item Value Reference Range Interpretation Comments Urine Urobilinogen (test code = 50588-3) 0.2 0.2-1 [facility] Sdskkjuub7959-31-46 12:20:00* Test Item Value Reference Range Interpretation Comments Urine Bilirubin (test code = 1978-6) NEGATIVE NEGATIVE [facility] Aiftw0549-37-54 12:20:00* Test Item Value Reference Range Interpretation Comments Urine Blood (test code = 64599-3) TRACE NEGATIVE H [facility] Ztctm3175-55-20 12:18:00* Test Item Value Reference Range Interpretation Comments Sodium Level (test code = 2951-2) 140 136-145 [facility] Kirjb5119-07-48 12:18:00* Test Item Value Reference Range Interpretation Comments Potassium Level (test code = 2823-3) 3.8 3.5-5.1 [facility]loride Xdmrr7949-02-73 12:18:00* Test Item Value Reference Range Interpretation Comments Chloride Level (test code = 2075-0) 103 98-107 [facility] HeightsCarbon Dioxide Vcafv0338-57-57 12:18:00* Test Item Value Reference Range Interpretation Comments Carbon Dioxide Level (test code = 2028-9) 25 22-29 [facility] HeightsAnion Csy7222-48-97 12:18:00* Test Item Value Reference Range Interpretation Comments Anion Gap (test code = 66565-9) 15.8 8-16 [facility] Urea Xrtcsamz4857-12-02 12:18:00* Test Item Value Reference Range Interpretation Comments Blood Urea Nitrogen (test code = 3094-0) 12 7-26 [facility] HeightsCreatinine2020-04-06 12:18:00* Test Item Value Reference Range Interpretation Comments Creatinine (test code = 2160-0) 0.94 0.57-1.11 [facility]UN/Creatinine Nbngw2319-43-35 12:18:00* Test Item Value Reference Range Interpretation Comments BUN/Creatinine Ratio (test code = 3097-3) 13 6-25 [facility] HeightsEstimat Glomerular Filtration Rate 2019-12-23 12:18:00* Test Item Value Reference Range Interpretation Comments Estimat Glomerular Filtration Rate (test code = 483660260) 60 >60 Ranges were taken from the National Kidney Disease Education Program and the [facility] Kid[facility] Foundation literature.Reference ranges:60 or greater: Yzbmtf89-80 ( for 3 consecutive months): Chronic kidney disease 15 or less: Kidney failureSeton Medical Center Harker HeightsGlucose Bsjyi1330-77-83 12:18:00* Test Item Value Reference Range Interpretation Comments Glucose Level (test code = IMQ6340) 260 74-118 H [facility] HeightsCalcium Tsibu8638-54-36 12:18:00* Test Item Value Reference Range Interpretation Comments Calcium Level (test code = 57753-9) 9.8 8.4-10.2 [facility]Magnesium Okyoh6912-68-21 12:18:00* Test Item Value Reference Range Interpretation Comments Magnesium Level (test code = 17614-9) 1.9 1.3-2.1 [facility] HeightsTotal Ykncmzljq1423-78-40 12:18:00* Test Item Value Reference Range Interpretation Comments Total Bilirubin (test code = 1975-2) 0.4 0.2-1.2 [facility] HeightsAsp[facility]ate Amino Transf (AST/SGOT) 2019-12-23 12:18:00* Test Item Value Reference Range Interpretation Comments Aspartate Amino Transf (AST/SGOT) (test code = Aspartate Amino Transf (AST/SGOT)) 76 5-34 H [facility] HeightsAlanine Aminotransferase (ALT/SGPT) 2019-12-23 12:18:00* Test Item Value Reference Range Interpretation Comments Alanine Aminotransferase (ALT/SGPT) (test code = 1742-6) 116 0-55 H [facility] HeightsTotal Yknzlcn1172-35-65 12:18:00* Test Item Value Reference Range Interpretation Comments Total Protein (test code = 2885-2) 7.3 6.5-8.1 [facility] HeightsAlbumin2020-04-06 12:18:00* Test Item Value Reference Range Interpretation Comments Albumin (test code = 1751-7) 4.2 3.5-5.0 [facility]obulin2020-04-06 12:18:00* Test Item Value Reference Range Interpretation Comments Globulin (test code = 76021-3) 3.1 2.3-3.5 [facility] HeightsAlbumin/Globulin Pcizy7254-80-08 12:18:00 * Test Item Value Reference Range Interpretation Comments Albumin/Globulin Ratio (test code = 1759-0) 1.4 0.8-2.0 [facility] HeightsAlkaline Rtpuioaoegu3711-84-93 12:18:00* Test Item Value Reference Range Interpretation Comments Alkaline Phosphatase (test code = 6768-6) 94 40-150 [facility] HeightsCreatine Wfycao9111-96-64 12:18:00* Test Item Value Reference Range Interpretation Comments Creatine Kinase (test code = 2157-6) 78 29-168 [facility] HeightsAmylase Qluzo8999-19-83 12:18:00* Test Item Value Reference Range Interpretation Comments Amylase Level (test code = 1798-8) 51 25-125 [facility] HeightsLipase2020-04-06 12:18:00* Test Item Value Reference Range Interpretation Comments Lipase (test code = 3040-3) 95 8-78 H [facility] Kshwv1995-52-96 12:18:00* Test Item Value Reference Range Interpretation Comments Sodium Level (test code = 2951-2) 140 136-145 [facility] HeightsPotassium Rqern2092-69-16 12:18:00* Test Item Value Reference Range Interpretation Comments Potassium Level (test code = 2823-3) 3.8 3.5-5.1 [facility] HeightsChloride Cwngn2006-31-42 12:18:00* Test Item Value Reference Range Interpretation Comments Chloride Level (test code = 2075-0) 103 98-107 [facility] HeightsCarbon Dioxide Odwin8444-51-19 12:18:00* Test Item Value Reference Range Interpretation Comments Carbon Dioxide Level (test code = 2028-9) 25 22-29 [facility] HeightsAnion Cjt3501-71-76 12:18:00* Test Item Value Reference Range Interpretation Comments Anion Gap (test code = 61620-6) 15.8 8-16 [facility] Heights[facility] Urea Ntfbnkee0111-40-86 12:18:00* Test Item Value Reference Range Interpretation Comments Blood Urea Nitrogen (test code = 3094-0) 12 7-26 [facility] HeightsCreatinine2020-04-06 12:18:00* Test Item Value Reference Range Interpretation Comments Creatinine (test code = 2160-0) 0.94 0.57-1.11 [facility]BUN/Creatinine Cmuhi7351-64-18 12:18:00* Test Item Value Reference Range Interpretation Comments BUN/Creatinine Ratio (test code = 3097-3) 13 6-25 [facility] HeightsEstimat Glomerular Filtration Rate 2019-12-23 12:18:00* Test Item Value Reference Range Interpretation Comments Estimat Glomerular Filtration Rate (test code = 864199080) 60 >60 Ranges were taken from the National Kidney Disease Education Program and the [facility] Kidney Foundation literature.Reference ranges:60 or greater: Oqkuwh97-60 ( for 3 consecutive months): Chronic kidney disease 15 or less: Kidney failureSeton Medical Center Harker HeightsGlucose Oxykl1159-62-87 12:18:00* Test Item Value Reference Range Interpretation Comments Glucose Level (test code = XCF0647) 260 74-118 [facility] [place] HeightsCalcium [id number] 12:18:00* Test Item Value Reference Range Interpretation Comments Calcium Level (test code = 96874-9) 9.8 8.4-10.2 [facility] HeightsMagnesium [id number] 12:18:00* Test Item Value Reference Range Interpretation Comments Magnesium Level (test code = 89828-3) 1.9 1.3-2.1 [facility] HeightsTotal [id number] 12:18:00* Test Item Value Reference Range Interpretation Comments Total Bilirubin (test code = 1975-2) 0.4 0.2-1.2 [facility] HeightsAspartate Amino Transf (AST/SGOT) 2019-12-23 12:18:00* Test Item Value Reference Range Interpretation Comments Aspartate Amino Transf (AST/SGOT) (test code = Aspartate Amino Transf (AST/SGOT)) 76 5-34 H [facility] HeightsAlanine Aminotransferase (ALT/SGPT) 2019-12-23 12:18:00* Test Item Value Reference Range Interpretation Comments Alanine Aminotransferase (ALT/SGPT) (test code = 1742-6) 116 0-55 H [facility] HeightsTotal [id number] 12:18:00* Test Item Value Reference Range Interpretation Comments Total Protein (test code = 2885-2) 7.3 6.5-8.1 [facility] HeightsAlbumin2020-04-06 12:18:00* Test Item Value Reference Range Interpretation Comments Albumin (test code = 1751-7) 4.2 3.5-5.0 [facility] HeightsGlobulin2020-04-06 12:18:00* Test Item Value Reference Range Interpretation Comments Globulin (test code = 42423-7) 3.1 2.3-3.5 [facility] HeightsAlbumin/Globulin [id number] 12:18:00 * Test Item Value Reference Range Interpretation Comments Albumin/Globulin Ratio (test code = 1759-0) 1.4 0.8-2.0 [facility] HeightsAlkaline Cfqucraeqiu9549-73-62 12:18:00* Test Item Value Reference Range Interpretation Comments Alkaline Phosphatase (test code = 6768-6) 94 40-150 [facility] HeightsCreatine Ckwlcq9911-28-82 12:18:00* Test Item Value Reference Range Interpretation Comments Creatine Kinase (test code = 2157-6) 78 29-168 [facility] HeightsAmylase [id number] 12:18:00* Test Item Value Reference Range Interpretation Comments Amylase Level (test code = 1798-8) 51 25-125 [facility] HeightsLipase2020-04-06 12:18:00* Test Item Value Reference Range Interpretation Comments Lipase (test code = 3040-3) 95 8-78 H [facility] [place] HeightsWhite Blood [id number] 12:03:00* Test Item Value Reference Range Interpretation Comments White Blood Count (test code = 6690-2) 6.34 4.8-10.8 [facility] HeightsRed Blood [id number] 12:03:00* Test Item Value Reference Range Interpretation Comments Red Blood Count (test code = 789-8) 5.03 3.6-5.1 [facility] HeightsHemoglobin2020-04-06 12:03:00* Test Item Value Reference Range Interpretation Comments Hemoglobin (test code = 95372-3) 15.1 12.0-16.0 [facility] HeightsHematocrit2020-04-06 12:03:00* Test Item Value Reference Range Interpretation Comments Hematocrit (test code = 4544-3) 45.7 34.2-44.1 H [facility] HeightsMean Corpuscular [id number] 12:03:00* Test Item Value Reference Range Interpretation Comments Mean Corpuscular Volume (test code = 787-2) 90.9 81-99 [facility] HeightsMean Corpuscular Ednjlzkthn3978-48-16 12:03:00* Test Item Value Reference Range Interpretation Comments Mean Corpuscular Hemoglobin (test code = 785-6) 30.0 28-32 [facility] HeightsMean Corpuscular Hemoglobin Concent 2019-12-23 12:03:00* Test Item Value Reference Range Interpretation Comments Mean Corpuscular Hemoglobin Concent (test code = 786-4) 33.0 31-35 [facility] HeightsRed Cell Distribution [id number] 12:03:00* Test Item Value Reference Range Interpretation Comments Red Cell Distribution Width (test code = 06776-4) 13.1 11.7 -14.4 [facility] HeightsPlatelet [id number] 12:03:00* Test Item Value Reference Range Interpretation Comments Platelet Count (test code = 777-3) 236 140-360 [facility] HeightsNeutrophils (%) (Auto)2019-12-23 12:03:00 * Test Item Value Reference Range Interpretation Comments Neutrophils (%) (Auto) (test code = 66014-7) 54.9 38.7-80.0 [facility] HeightsLymphocytes (%) (Auto)2019-12-23 12:03:00 * Test Item Value Reference Range Interpretation Comments Lymphocytes (%) (Auto) (test code = 736-9) 33.4 18.0-39.1 [facility] HeightsMonocytes (%) (Auto)2019-12-23 12:03:00* Test Item Value Reference Range Interpretation Comments Monocytes (%) (Auto) (test code = 5905-5) 7.7 4.4-11.3 [facility] HeightsEosinophils (%) (Auto)2019-12-23 12:03:00 * Test Item Value Reference Range Interpretation Comments Eosinophils (%) (Auto) (test code = 713-8) 2.5 0.0-6.0 [facility] HeightsBasophils (%) (Auto)2019-12-23 12:03:00* Test Item Value Reference Range Interpretation Comments Basophils (%) (Auto) (test code = 706-2) 0.6 0.0-1.0 [facility] HeightsIM GRANULOCYTES %2019-12-23 12:03:00* Test Item Value Reference Range Interpretation Comments IM GRANULOCYTES % (test code = IM GRANULOCYTES %) 0.9 0.0- 1.0 [facility] HeightsNeutrophils # (Auto)2019-12-23 12:03:00* Test Item Value Reference Range Interpretation Comments Neutrophils # (Auto) (test code = 751-8) 3.5 2.1-6.9 [facility] HeightsLymphocytes # (Auto)2019-12-23 12:03:00* Test Item Value Reference Range Interpretation Comments Lymphocytes # (Auto) (test code = 46122-0) 2.1 1.0-3.2 [facility] HeightsMonocytes # (Auto)2019-12-23 12:03:00* Test Item Value Reference Range Interpretation Comments Monocytes # (Auto) (test code = 742-7) 0.5 0.2-0.8 [facility] HeightsEosinophils # (Auto)2019-12-23 12:03:00* Test Item Value Reference Range Interpretation Comments Eosinophils # (Auto) (test code = 711-2) 0.2 0.0-0.4 [facility] HeightsBasophils # (Auto)2019-12-23 12:03:00* Test Item Value Reference Range Interpretation Comments Basophils # (Auto) (test code = 704-7) 0.0 0.0-0.1 [facility] HeightsAbsolute Immature Granulocyte (auto 2019-12-23 12:03:00* Test Item Value Reference Range Interpretation Comments Absolute Immature Granulocyte (auto (everett t code = Absolute Immature Granulocyte (auto) 0.06 0-0.1 [facility] HeightsWhite Blood Ejfrl1984-12-41 12:03:00* Test Item Value Reference Range Interpretation Comments White Blood Count (test code = 6690-2) 6.34 4.8-10.8 [facility] HeightsRed Blood [id number] 12:03:00* Test Item Value Reference Range Interpretation Comments Red Blood Count (test code = 789-8) 5.03 3.6-5.1 [facility] HeightsHemoglobin2020-04-06 12:03:00* Test Item Value Reference Range Interpretation Comments Hemoglobin (test code = 89186-7) 15.1 12.0-16.0 [facility] HeightsHematocrit2020-04-06 12:03:00* Test Item Value Reference Range Interpretation Comments Hematocrit (test code = 4544-3) 45.7 34.2-44.1 H [facility] HeightsMean Corpuscular [id number] 12:03:00* Test Item Value Reference Range Interpretation Comments Mean Corpuscular Volume (test code = 787-2) 90.9 81-99 [facility] HeightsMean Corpuscular Focmxuyaed6561-45-51 12:03:00* Test Item Value Reference Range Interpretation Comments Mean Corpuscular Hemoglobin (test code = 785-6) 30.0 28-32 [facility] Corpuscular Hemoglobin Concent 2019-12-23 12:03:00* Test Item Value Reference Range Interpretation Comments Mean Corpuscular Hemoglobin Concent (test code = 786-4) 33.0 31-35 [facility] HeightsRed Cell Distribution [id number] 12:03:00* Test Item Value Reference Range Interpretation Comments Red Cell Distribution Width (test code = 58838-2) 13.1 11.7 -14.4 [facility] HeightsPlatelet [id number] 12:03:00* Test Item Value Reference Range Interpretation Comments Platelet Count (test code = 777-3) 236 140-360 [facility] HeightsNeutrophils (%) (Auto)2019-12-23 12:03:00 * Test Item Value Reference Range Interpretation Comments Neutrophils (%) (Auto) (test code = 15855-2) 54.9 38.7-80.0 [facility] HeightsLymphocytes (%) (Auto)2019-12-23 12:03:00 * Test Item Value Reference Range Interpretation Comments Lymphocytes (%) (Auto) (test code = 736-9) 33.4 18.0-39.1 [facility] HeightsMonocytes (%) (Auto)2019-12-23 12:03:00* Test Item Value Reference Range Interpretation Comments Monocytes (%) (Auto) (test code = 5905-5) 7.7 4.4-11.3 [facility] HeightsEosinophils (%) (Auto)2019-12-23 12:03:00 * Test Item Value Reference Range Interpretation Comments Eosinophils (%) (Auto) (test code = 713-8) 2.5 0.0-6.0 [facility] HeightsBasophils (%) (Auto)2019-12-23 12:03:00* Test Item Value Reference Range Interpretation Comments Basophils (%) (Auto) (test code = 706-2) 0.6 0.0-1.0 [facility] HeightsIM GRANULOCYTES %2019-12-23 12:03:00* Test Item Value Reference Range Interpretation Comments IM GRANULOCYTES % (test code = IM GRANULOCYTES %) 0.9 0.0- 1.0 [facility] HeightsNeutrophils # (Auto)2019-12-23 12:03:00* Test Item Value Reference Range Interpretation Comments Neutrophils # (Auto) (test code = 751-8) 3.5 2.1-6.9 [facility] HeightsLymphocytes # (Auto)2019-12-23 12:03:00* Test Item Value Reference Range Interpretation Comments Lymphocytes # (Auto) (test code = 18587-5) 2.1 1.0-3.2 [facility] HeightsMonocytes # (Auto)2019-12-23 12:03:00* Test Item Value Reference Range Interpretation Comments Monocytes # (Auto) (test code = 742-7) 0.5 0.2-0.8 [facility] HeightsEosinophils # (Auto)2019-12-23 12:03:00* Test Item Value Reference Range Interpretation Comments Eosinophils # (Auto) (test code = 711-2) 0.2 0.0-0.4 [facility] HeightsBasophils # (Auto)2019-12-23 12:03:00* Test Item Value Reference Range Interpretation Comments Basophils # (Auto) (test code = 704-7) 0.0 0.0-0.1 [facility] HeightsAbsolute Immature Granulocyte (auto 2019-12-23 12:03:00* Test Item Value Reference Range Interpretation Comments Absolute Immature Granulocyte (auto (everett t code = Absolute Immature Granulocyte (auto) 0.06 0-0.1 [facility] [place]
--- NOTE | 2020-05-27 11:58 | Emergency Department Note ---
History of Present Illnes History of Present Illness Chief Complaint: General Medicine Complaints History of Present Illness This is a 64 year old female Chief Complaint Comment PAIN INSIDE RECTUM 2 1/2 WEEK AGO HAD HEMMROHIDECTOMY. PT. HAS INTERNAL/EXTERNAL PATIENT TAKING HYDROCODONE/TRAMADOL AND STOOL SOFTNERS DAILY. LAST BM 1AM. Historian: Patient Arrival Mode: Car Additional Treatment BUSINESS MANAGEMENT SPECIALIST: NONE Credit Relationship Manager Required: No Onset (how long ago): day(s) Location: Rectum Quality: sharp Radiation: Reports non-radiation Severity: mild Onset quality: unable to specify Duration (how long): day(s) Timing of current episode: constant Progression: worsening Chronicity: new Context: Denies recent illness, Denies recent surgery Relieving factors: none Exacerbating factors: none Associated symptoms: Reports denies other symptoms Treatments prior to arrival: none Past Medical/Family History Physician Review I have reviewed the patient's past medical and family history. Any updates have been documented here. Past Medical History Recent Fever: No Clinical Suspicion of Infectio: No New/Unexplained Change in Ment: No Past Medical History: [place], Hyperlipedemia Other Medical History: BORDERLINE DIABETIC Past Surgical History: Appendectomy, Hysterectomy, PCI Other Surgery: STENTS X2 PARTIAL HYSTERECTOMY Social History Physically hurt or threatened: No Other Last Tetanus: UNKNOWN Review of Systems Review of Systems Constitutional: Reports no symptoms EENTM: Reports no symptoms Cardiovascular: Reports no symptoms Respiratory: Reports no symptoms Gastrointestinal: Reports as per HPI, Reports other (Rectal pain) Genitourinary: Reports no symptoms Musculoskeletal: Reports no symptoms Integumentary: Reports no symptoms Neurological: Reports no symptoms Psychological: Reports no symptoms Endocrine: Reports no symptoms Hematological/Lymphatic: Reports no symptoms Physical Exam Related Data Allergies: Coded Allergies: No Known Allergies (Unverified , 12/23/19) Triage Vital Signs Vital Signs Date Time Temp Pulse Resp B/P (MAP) Pulse Ox O2 Delivery O2 Flow Rate FiO2 05/27/20 11:47 98.7 95 18 168/95 98 Room Air Vital signs reviewed: Yes Physical Exam CONSTITUTIONAL Constitutional: Present well-developed, Present well-nourished HENT HENT: Present normocephalic, Present atraumatic, Present oropharynx clear/moist, Present nose normal HENT L/R: Present left ext ear normal, Present right ext ear normal EYES Eyes: Reports PERRL, Reports conjunctivae normal NECK Neck: Present ROM normal PULMONARY Pulmonary: Present effort normal, Present breath sounds normal CARDIOVASCULAR Cardiovascular: Present regular rhythm, Present heart sounds normal, Present capillary refill normal, Present normal rate GASTROINTESTINAL Abdominal: Present soft, Present nontender, Present bowel sounds normal, Present other (hemorrhoid) GENITOURINARY Genitourinary: Present exam deferred SKIN Skin: Present warm, Present dry MUSCULOSKELETAL Musculoskeletal: Present ROM normal NEUROLOGICAL Neurological: Present alert, Present oriented x 3, Present no gross motor or sensory deficits PSYCHOLOGICAL Psychological: Present mood/affect normal, Present judgement normal Assessment & Plan Medical Decision Making MDM 64 y.o f presents for rectal pain after hemorhoidectomy 2.5 weeks ago. Exam shows hemorrhoid. CT benign, labs benign. Spoke with Dr. Manzano who will call her to schedule exam in OR. Rx for tramadol given and she will take this instead of T3. patient is appropriate for DC. Reassessment Reassessment time: 16:45 Reassessment Well appearing, NAD Assessment & Plan Final Impression: (1) External hemorrhoid Depart Disposition: HOME, SELF-CARE Last Vital Signs Date Time Temp Pulse Resp B/P (MAP) Pulse Ox O2 Delivery O2 Flow Rate FiO2 05/27/20 11:47 98.7 95 18 168/95 98 Room Air Home Meds Active Scripts Tramadol Hcl (ULTRAM) 50 Mg Tablet, 50 MG PO Q6H, #10 TAB Prov:TUTU SALCEDO MD 05/27/20 Reported Medications Meloxicam (MELOXICAM) 7.5 Mg Tablet, 7.5 MG PO DAILY, #30 TAB 05/05/20 Pantoprazole Sodium (PROTONIX) 20 Mg Tablet.dr, 40 MG PO HS, #30 TAB 05/05/20 Atorvastatin Calcium (ATORVASTATIN CALCIUM) 20 Mg Tablet, 20 MG PO DAILY, #30 TAB 12/24/19 TUTU SALCEDO MD May 27, 2020 11:58
[2020-05-27] MEDS ORDERED: FENTANYL CITRATE/PF 100MCG/2 ML INJ IV PRN (12:30)
[2020-05-27] MEDS ORDERED: DIATRIZOATE MEGL/DIATRIZOA SOD 30 ML BTL PO ONE (13:10)
[2020-05-27] MEDS ORDERED: SODIUM CHLORIDE 0.9% 50ML 50 ML ONE (13:10)
[2020-05-27] MEDS ORDERED: IOPAMIDOL 370 MG/ML 200 ML INFUS..BTL INJ ONE (13:10)
[2020-05-27 13:22] LABS: ALANINE AMINOTRANSFERASE 47 IU/L (0-55); ALBUMIN 4.3 g/dL (3.5-5.0); ALBUMIN/GLOBULIN RATIO 1.5 (0.8-2.0); ALKALINE PHOSPHATASE 100 IU/L (40-150); ANION GAP 19.4 mmol/L (8-16); BLOOD UREA NITROGEN 11 mg/dL (7-26); BUN/CREATININE RATIO 13 (6-25); CALCIUM 9.4 mg/dL (8.4-10.2); CARBON DIOXIDE 22 mmol/L (22-29); CHLORIDE 102 mmol/L (98-107); CREATININE, SERUM 0.84 mg/dL (0.57-1.11); EST GLOMERULAR FILTRATION RATE > 60 ML/MIN (60-); GLUCOSE 189 mg/dL (74-118); POTASSIUM 4.4 mmol/L (3.5-5.1); SODIUM 139 mmol/L (136-145)
[2020-05-27] MEDS ORDERED: ONDANSETRON HCL INJ 2MG/ML 2ML 2 MG/ML VIAL IV STA (13:26)
--- NOTE | 2020-05-27 14:55 | Diagnostic Imaging Report ---
CT of the abdomen and pelvis, with contrast. History: Rectal pain status post hemorrhoidectomy. Comparison: CT abdomen/pelvis with contrast from 12/30/2019. Technique: Multidetector CT scanning of the abdomen and pelvis was performed from the level of the lung bases to the inferior pubic rami after intravenous and oral administration of contrast. Coronal and sagittal multiplanar reformations were obtained. RADIATION DOSE: Total DLP: 363.82 mGy*cm Dose modulation, iterative reconstruction, and/or weight based adjustment of the mA/kV was utilized to reduce the radiation dose to as low as reasonably achievable. FINDINGS: The visualized intrathoracic contents demonstrate no significant abnormalities. The liver is diffusely decreased in attenuation compatible with hepatic steatosis. Again noted are multiple subcentimeter calcified granulomas throughout the liver. No new focal hepatic abdomen malady is identified. The gallbladder is unremarkable. There is no biliary ductal dilatation. Granulomatous calcifications noted within the spleen which is otherwise unremarkable. The pancreas and bilateral adrenal glands demonstrate no significant abnormalities. The kidneys are normal in size and location and enhance symmetrically. There is no evidence for nephrolithiasis or hydronephrosis. No ureteral stone or dilatation is appreciated. The urinary bladder demonstrates no significant abnormalities. The uterus is surgically absent. No abnormal adnexal masses are identified. The abdominal aorta is normal course and caliber with minimal atherosclerotic calcifications. The IVC is unremarkable. The visualized loops of small and large bowel demonstrate no evidence of obstruction or inflammation. There is no ascites or intraperineal free air. No abnormally enlarged lymph nodes are identified within the abdomen or pelvis. The osseous structures demonstrate no evidence for acute fracture or destructive process. The extraperitoneal soft tissues are unremarkable. IMPRESSION: No acute abdominopelvic process identified. CT findings compatible with hepatic steatosis. Stable calcified granulomas noted throughout the liver and spleen. Signed by: Dr. Jaren Ambrocio MD on 05/27/2020 2:52 PM
[2020-05-27] MEDS ORDERED: FENTANYL CITRATE/PF 100MCG/2 ML INJ IV ONE (16:00)
[2020-05-27] MEDS ORDERED: ULTRAM50 MG PO (16:44)
[2020-05-27] MEDS ORDERED: LIDOCAINE HCL50 ML TOP (16:59)
[2020-05-28] MEDS ORDERED: STOOL SOFTENER50 MG (14:03)
[2020-05-28] MEDS ORDERED: ANTIBIOTIC28.4 GM (14:03)
== END 2020-05-27 17:32 | disposition home or self-care (01) ==
LOC: ER 11:52
DX: K64.4 Residual hemorrhoidal skin tags (principal); K62.89 Other specified diseases of anus and rectum; E78.5 Hyperlipidemia, unspecified; I25.2 Old myocardial infarction; Z95.5 Presence of coronary angioplasty implant and graft
CPT/HCPCS: 36415; 74177; 80053; 99284; J2405; J3010; Q9967

== ENCOUNTER 2020-05-29 13:50 | Inpatient (IN) | payer BC, MEDICARE, OTHER ==
[~2020-05-29] VITALS: Ht 154.9 cm; Wt 66.7 kg
[~2020-05-29 13:50] MED LIST changes: +ANTIBIOTIC28.4 GM; +LIDOCAINE HCL50 ML TOP; +STOOL SOFTENER50 MG
[2020-05-29] MEDS ORDERED: ONDANSETRON HCL INJ 2MG/ML 2ML 2 MG/ML VIAL IV STA (14:23)
[2020-05-29] MEDS ORDERED: MORPHINE SULFATE 5 MG/ML VIAL IV ONE (14:30)
--- NOTE | 2020-05-29 14:32 | Emergency Department Note ---
History of Present Illnes History of Present Illness Chief Complaint: General Medicine Complaints History of Present Illness This is a 64 year old female right to the ED with complaints of rectal pain secondary to hemorrhoids. Patient states tramadol has not been working. She states she is scheduled for a colonoscopy on Monday by Dr David Manzano but is unable to tolerate the pain any further. . Historian: Patient Onset (how long ago): day(s) Radiation: Reports non-radiation Severity: mild Onset quality: gradual Duration (how long): day(s) Timing of current episode: constant Progression: worsening Chronicity: recurrent Past Medical/Family History Physician Review I have reviewed the patient's past medical and family history. Any updates have been documented here. Past Medical History Recent Fever: No Clinical Suspicion of Infectio: No New/Unexplained Change in Ment: No Past Medical History: [place], Hyperlipedemia Other Medical History: BORDERLINE DIABETIC Past Surgical History: Appendectomy, Hysterectomy, PCI Other Surgery: STENTS X2 PARTIAL HYSTERECTOMY Cyst removed from abdomen Social History Physically hurt or threatened: No Other Last Tetanus: UNKNOWN Review of Systems Review of Systems Constitutional: Reports no symptoms EENTM: Reports no symptoms Cardiovascular: Reports no symptoms Respiratory: Reports no symptoms Gastrointestinal: Reports no symptoms, Reports as per HPI, Reports other (rectal pain) Genitourinary: Reports no symptoms Musculoskeletal: Reports no symptoms Integumentary: Reports no symptoms Neurological: Reports no symptoms Psychological: Reports no symptoms Endocrine: Reports no symptoms Hematological/Lymphatic: Reports no symptoms Physical Exam Related Data Allergies: Coded Allergies: No Known Allergies (Unverified , 12/23/19) Triage Vital Signs Vital Signs Date Time Temp Pulse Resp B/P (MAP) Pulse Ox O2 Delivery O2 Flow Rate FiO2 05/29/20 14:04 98.9 84 18 131/78 99 Room Air Vital signs reviewed: Yes Physical Exam CONSTITUTIONAL Constitutional: Present well-developed, Present well-nourished HENT HENT: Present normocephalic, Present atraumatic, Present oropharynx clear/moist, Present nose normal HENT L/R: Present left ext ear normal, Present right ext ear normal EYES Eyes: Reports PERRL, Reports conjunctivae normal NECK Neck: Present ROM normal PULMONARY Pulmonary: Present effort normal, Present breath sounds normal CARDIOVASCULAR Cardiovascular: Present regular rhythm, Present heart sounds normal, Present capillary refill normal, Present normal rate GASTROINTESTINAL Abdominal: Present soft, Present nontender, Present bowel sounds normal, Present other (external nonthrombosed hemorrhoids present, no skin tears/) GENITOURINARY Genitourinary: Present exam deferred SKIN Skin: Present warm, Present dry MUSCULOSKELETAL Musculoskeletal: Present ROM normal NEUROLOGICAL Neurological: Present alert, Present oriented x 3, Present no gross motor or sensory deficits PSYCHOLOGICAL Psychological: Present mood/affect normal, Present judgement normal Results Laboratory Lab results reviewed: Yes Laboratory comments Laboratory Tests Test 05/29/20 14:59 White Blood Count 6.15 x10e3/uL (4.8-10.8) Red Blood Count 4.58 x10e6/uL (3.6-5.1) Hemoglobin 13.4 g/dL (12.0-16.0) Hematocrit 41.5 % (34.2-44.1) Mean Corpuscular Volume 90.6 fL (81-99) Mean Corpuscular Hemoglobin 29.3 pg (28-32) Mean Corpuscular Hemoglobin Concent 32.3 g/dL (31-35) Red Cell Distribution Width 12.6 % (11.7-14.4) Platelet Count 234 x10e3/uL (140-360) Neutrophils (%) (Auto) 55.7 % (38.7-80.0) Lymphocytes (%) (Auto) 32.7 % (18.0-39.1) Monocytes (%) (Auto) 7.0 % (4.4-11.3) Eosinophils (%) (Auto) 3.3 % (0.0-6.0) Basophils (%) (Auto) 0.5 % (0.0-1.0) Neutrophils # (Auto) 3.4 (2.1-6.9) Lymphocytes # (Auto) 2.0 (1.0-3.2) Monocytes # (Auto) 0.4 (0.2-0.8) Eosinophils # (Auto) 0.2 (0.0-0.4) Basophils # (Auto) 0.0 (0.0-0.1) Absolute Immature Granulocyte (auto 0.05 x10e3/uL (0-0.1) Sodium Level 138 mmol/L (136-145) Potassium Level 4.3 mmol/L (3.5-5.1) Chloride Level 104 mmol/L (98-107) Carbon Dioxide Level 20 mmol/L (22-29) Anion Gap 18.3 mmol/L (8-16) Blood Urea Nitrogen 14 mg/dL (7-26) Creatinine 0.80 mg/dL (0.57-1.11) Estimat Glomerular Filtration Rate > 60 ML/MIN (60-) BUN/Creatinine Ratio 18 (6-25) Glucose Level 206 mg/dL (74-118) Calcium Level 9.0 mg/dL (8.4-10.2) Total Bilirubin 0.3 mg/dL (0.2-1.2) Aspartate Amino Transf (AST/SGOT) 74 IU/L (5-34) Alanine Aminotransferase (ALT/SGPT) 66 IU/L (0-55) Alkaline Phosphatase 92 IU/L (40-150) Total Protein 6.8 g/dL (6.5-8.1) Albumin 3.9 g/dL (3.5-5.0) Globulin 2.9 g/dL (2.3-3.5) Albumin/Globulin Ratio 1.3 (0.8-2.0) Assessment & Plan Medical Decision Making MDM 64-year-old female arrives to the ED with complaints of pain over her rectum, patient requested hospital admission for pain control. Dr. David Manzano consulted Assessment & Plan Final Impression: (1) External hemorrhoid Depart Disposition: ADMITTED Last Vital Signs Date Time Temp Pulse Resp B/P (MAP) Pulse Ox O2 Delivery O2 Flow Rate FiO2 05/29/20 14:04 98.9 84 18 131/78 99 Room Air Home Meds Active Scripts Lidocaine Hcl (LIDOCAINE HCL) 50 Ml Btl, 50 ML TOP Q4HR for pain, #1 BOTTLE Prov:TUTU SALCEDO MD 05/27/20 Tramadol Hcl (ULTRAM) 50 Mg Tablet, 50 MG PO Q6H, #10 TAB Prov:TUTU SALCEDO MD 05/27/20 Reported Medications Bacitracin Zinc (ANTIBIOTIC) 28.4 Gm Oint...g., DAILY 05/28/20 Docusate Sodium (STOOL SOFTENER) 50 Mg Capsule 05/28/20 Meloxicam (MELOXICAM) 7.5 Mg Tablet, 7.5 MG PO DAILY, #30 TAB 05/05/20 Pantoprazole Sodium (PROTONIX) 20 Mg Tablet.dr, 40 MG PO HS, #30 TAB 05/05/20 Atorvastatin Calcium (ATORVASTATIN CALCIUM) 20 Mg Tablet, 20 MG PO DAILY, #30 TAB 12/24/19 YUKO CORMIER, May 29, 2020 14:32
[2020-05-29] MEDS ORDERED: MORPHINE SULFATE INJ 4 MG/ML INJ 1ML ONE (14:36)
[2020-05-29] MEDS ORDERED: MORPHINE SULFATE 2 MG/ML SYR 1ML IV ONE (14:45)
[2020-05-29] MEDS ORDERED: LIDOCAINE HCL 2% JELLY 5 ML TUBE ONE (14:51)
--- OUTSIDE RECORDS SUMMARY | 2020-05-29 15:06 | XMS REPORT | Continuity of Care Document ---
Author Author [facility] Organization [facility] Address [address] [place] [address] Phone Unavailable Care Team Providers Care Plastic Injection Mold Maker Name Role Phone AMBER CADET MD PCP Emory Berkowitz Attphys Unavailable KOURTNEY COLLADO Attphys Unavailable YUKO CORMIERphyhayden Unavailable Payers Payer Name Policy Type Policy Number Effective Date Expiration Date S avelino [facility] [id number] [facility] [id number] [facility] [id number] I [facility] Problems This patient has no known problems. [...] 6 Hours as needed for Abdominal Pain [facility] Ondansetron (Ondansetron Odt) 8 Mg Tab.rapdis Ondanset reg (Ondansetron Odt) 8 Mg Tab.rapdis 2019-12-30 00:00:00 Yes Adria Collado 1 Every 6 Hours as needed for Nausea And Vomiting [facility] Ondansetron Hcl (Zofran*) 4 Mg Tablet, 4 Mg Sublingual Ondansetron Hcl (Zofran*) 4 Mg Tablet, 4 Mg Sublingual 2019-12-23 00:00:00 2019-12-24 00:00:00 No Bimal Dave Youth Teacher 4 Every 6 Hours as needed for Nausea [facility] Tramadol Hcl (Ultram) 50 Mg Tablet, 50 Mg Oral Tramado l Hcl (Ultram) 50 Mg Tablet, 50 Mg Oral 2019-12-23 00:00:00 2019-12-24 00:00:00 No Puma Dave Youth Teacher 50 Every 6 Hours as needed for Abdominal Pa in [facility] Atorvastatin Calcium 20 Mg Tablet Atorvastatin Calcium 20 Mg Tablet Yes 20 Daily [facility] Cefdinir (Omnicef) 300 Mg Capsule Cefdinir (Omnicef) 300 Mg Capsule Yes 300 Twice A Day [facility] Ondansetron Hcl 4 Mg Tablet Ondansetron Hcl 4 Mg Tablet Yes As Needed [facility] Fluconazole 100 Mg Tablet, 150 Mg Oral Fluconazole 100 Mg Tablet , 150 Mg Oral 2019-12-26 00:00:00 No 150 One Dose [facility] Procedures Procedure Date / Time Performed Performing Clinician Sourc e EGD with biopsy 2019-12-26 00:00:00 RAIMUNDO SU [facility] Computed tomography of abdomen and pelvis with contrast 2019 00:00:00 BIMAL DAVE [facility] Encounters Start Date/Time End Date/Time En[facility] Encounter ID Source 2019-12-30 16:14:00 2019-12-30 20:02:00 Departed Emergency Room 1 ADRIA COLLADO [facility] [id number] [facility] 2019-12-26 07:45:00 2019-12-26 07:45:00 Registered Surgical Day Care [facility] [id number] [facility] 2019-12-23 10:47:00 2019-12-23 14:22:00 Departed Emergency Room 1 YUKO CORMIER [facility] [id number] [facility] Results Test Description Test Time Test Comments Results Result Comments Source CT ABDOMEN/PELVIS W 2020-05-27 14:45:00 [facility] [address] [address] Patient Name: OPAL SHETH MR #: [id number] : 1955 Age/Sex: 64/F Req #: [id number] Adm Physician: Ordered by: Tutu Berkowitz MD Report #: [id number] Location: ER Room/Bed: Procedure: CT/CT ABDOMEN/PELVIS W Exam Date: 05/27/20 Exam Time: 1425 REPORT STATUS: Signed CT of the abdomen and pelvis, with contrast. History: Rectal pain status post hemorrhoidectomy. Comparison: CT abdomen/pelvis with contrast from 12/30/2019. Technique: Multidetector CT scanning of the abdomen and pelvis was performed from the lev el of the lung bases to the inferior pubic rami after intravenous and oral administration of contrast. Coronal and sagittal multiplanar reformations were obtained. RADIATION DOSE: Total DLP: 363.82 mGy*cm Dose modulation, iterative reconstruction, and/or weight based adjustment of the mA/kV was utilized to reduce the radiation dose to as low as reasonably achievable. FINDINGS: The visualized intrathoracic contents demonstrate no significant abnormalities. The liver is diffusely decreased in attenuation compatible with hepatic steatosis. Again noted are multiple subcentimeter calcified granulomas throughout the liver. No new focal hepatic abdomen malady is identified. The gallbladder is unremarkable. There is no biliary ductal dilatation. Granulomatous calcifications noted within the spleen which is otherwise unremarkable. The pancreas and bilateral adrenal glands demonstrate no significant abnormalities. The kidneys are normal in size and location and enhance symmetrically. There is no evidence for nephrolithiasis or hydronephrosis. No ureteral stone or dilatation is appreciated. The urinary bladder demonstrates no significant abnormalities. The uterus is surgically absent. No abnormal adnexal masses are identified. The abdominal aorta is normal course and caliber with minimal atherosclerotic calcifications. The IVC is unremarkable. The visualized loops of small and large bowel demonstrate no evidence of obstruction or inflammation. There is no ascites or intraperineal free air. No abnormally enlarged lymph nodes are identified within the abdomen or pelvis. The osseous structures demonstrate no evidence for acute fracture or destructive process. The extraperitoneal soft tissues are unremarkable. IMPRESSION: No acute abdominopelvic process identified. CT findings compatible with hepatic steatosis. Stable calcified granulomas noted throughout the liver and spleen. Signed by: Dr. Jaren Ambrocio MD on 05/27/2020 2:52 PM Dictated By: JAREN AMBROCIO MD 51 Transcribed By: GILDARDO on 05/27/201451 COPY TO: TUTU BERKOWITZ MD CT ABD/PEL WITH CONTRAST-HOPD 2019-12-30 18:22:[address] [address] Patient Name: OPAL SHETH MR #: [id number] : 1955 Age/Sex: 64/F Req #: [id number] Adm Physician: Ordered by: ADRIA COLLADO Report #: [id number] Location: [facility] Room/Bed: Procedure: [id number] HOPD/CT ABD/PEL WITH CONTRAST-HOPD Exam Date: 12/30/19 [...] prior granulomas disease. Signed by: Dr. Wero Peraza M.D. on 12/30/2019 6:29 PM Dictated By: WERO PERAZA MD, MD 28 Transcribed By: GILDARDO on 12/30/191828 COPY TO: ADRIA COLLADO Stool Calprotectin 2019-12-30 13:09:00 Test Item Stool Calprotectin (test code = 28838-6) <16 0-120 Concentration Interpretation Follow-Up<16 - 50 ug/g Normal None>50 -120 ug/g Borderline Re-evaluate in 4-6 weeks >120 ug/g Abnormal Repeat as clinically indicatedPerformed at: [facility] [address] [place], [place] [id number] Director: Aviva Thorne MD, Phone: [phone] [facility] Clubtool Lactoferrin (LAB)2019-12-26 15:31:00* Test Item Value Reference Range Interpretation Comments Stool Lactoferrin (LAB) (test code = 67847-9) NEGATIVE NEGATIVE Testing on stool aspirate specimens is outside automatic bow maker machine tender claims since specime n type not validated on this assay.[facility] Clostridium Difficile Toxin A & [id number] 15:31:00* Test Item Value Reference Range Interpretation Comments Clostridium Difficile Toxin A & B (test code = 635911782) NEGATIVE NEGATIVE Testing on stool aspirate specimens is outside automatic bow maker machine tender claims since specime n type not validated on this assay.[facility]ville[facility]ST SINGLE (PORTABLE)2019-12-23 13:31:[address] [address] Patient Name: OPAL SHETH MR #: [id number] : 1955 Age/Sex: 64/F Req #: [id number] Adm Physician: Ordered by: BIMAL DAVE DAIRY INSPECTOR Report #: [id number] Location: ER Room/Bed: Procedure: [id number] DX /CHEST SINGLE (PORTABLE) Exam Date: 12/23/19 [...] a or pulmonary edema. Signed by: Geovanna Rincon MD on 12/23/2019 1:31 PM Dictated By: GEOVANNA RINCON MD 1331 Transcribed By: GILDARDO on 12/23/19 1331 COPY TO: BIMAL DAVE NP CT ABDOMEN/PELVIS [id number] 13:31:[address] [address] Patient Name: OPAL SHETH MR #: [id number] : 1955 Age/Sex: 64/F Req #: [id number] Adm Physician: Ordered by: BIMAL DAVE NP Report #: [id number] Location: ER Room/Bed: Procedure: [id number] CT /CT ABDOMEN/PELVIS W Exam Date: 12/23/19 [...] By: GEOVANNA RINCON MD 1337 Transcribed By: ELIZABETH VALENZUELA on 12/23/19 1337 COPY TO: BIMAL DAVE NP Creatine Kinase [id number] 12:25:00* Test Item Value Reference Range Interpretation Comments Creatine Kinase MB (test code = 98436-4) 1.00 0-5.0 [facility]villeTroponin [id number] 12:25:00* Test Item Value Reference Range Interpretation Comments Troponin I (test code = 95932-5) < 0.001 0-0.300 [facility]villeCreatine Kinase [id number] 12:25:00* Test Item Value Reference Range Interpretation Comments Creatine Kinase MB (test code = 13599-4) 1.00 0-5.0 [facility]villeTroponin [id number] 12:25:00* Test Item Value Reference Range Interpretation Comments Troponin I (test code = 09355-4) < 0.001 0-0.300 [facility]villeUrine [id number] 12:24:00* Test Item Value Reference Range Interpretation Comments Urine WBC (test code = 5821-4) 6-10 0-5 H [facility]villeUrine [id number] 12:24:00* Test Item Value Reference Range Interpretation Comments Urine RBC (test code = 42253-4) 6-10 0-5 H [facility]villeUrine Eocfmmde1587-68-64 12:24:00* Test Item Value Reference Range Interpretation Comments Urine Bacteria (test code = 07275-6) RARE NONE [facility]villeUrine Epithelial Bxgxz7598-55-77 12:24:00 * Test Item Value Reference Range Interpretation Comments Urine Epithelial Cells (test code = 99236-8) FEW NONE [facility]villeUrine Renal Epithelial Knnjl4512-77-04 12:24:00* Test Item Value Reference Range Interpretation Comments Urine Renal Epithelial Cells (test code = 05463-6) FEW NON E H [facility] StephenvilleUrine Nystf9775-35-02 12:24:00* Test Item Value Reference Range Interpretation Comments Urine Mucus (test code = 8247-9) MANY RARE H [facility]villeUrine FOQ3469-37-80 12:24:00* Test Item Value Reference Range Interpretation Comments Urine WBC (test code = 5821-4) 6-10 0-5 H [facility]villeUrine BPV1186-40-48 12:24:00* Test Item Value Reference Range Interpretation Comments Urine RBC (test code = 90772-5) 6-10 0-5 H [facility]villeUrine Prsnfwcp9433-55-12 12:24:00* Test Item Value Reference Range Interpretation Comments Urine Bacteria (test code = 81839-0) RARE NONE [facility]villeUrine Epithelial Rrvak6861-54-90 12:24:00 * Test Item Value Reference Range Interpretation Comments Urine Epithelial Cells (test code = 46069-2) FEW NONE [facility]villeUrine Renal Epithelial Zikpo8169-99-34 12:24:00* Test Item Value Reference Range Interpretation Comments Urine Renal Epithelial Cells (test code = 07568-8) FEW NON E H [facility]villeUrine Kyjkh7623-62-86 12:24:00* Test Item Value Reference Range Interpretation Comments Urine Mucus (test code = 8247-9) MANY RARE H [facility]villeUrine Ymfun7910-36-37 12:20:00* Test Item Value Reference Range Interpretation Comments Urine Color (test code = 5778-6) YELLOW YELLOW [facility]villeUrine Pzkckgr1800-26-51 12:20:00* Test Item Value Reference Range Interpretation Comments Urine Clarity (test code = 62549-0) CLEAR CLEAR [facility] Specific Ydyqinf6948-03-89 12:20:00 * Test Item Value Reference Range Interpretation Comments Urine Specific Duff (test code = 5811-5) 1.025 1.010-1.02 5 [facility]villeUrine [id number] 12:20:00* Test Item Value Reference Range Interpretation Comments Urine pH (test code = 33128-6) 5.5 5-7 [facility]villeUrine Leukocyte Suwyflfd3409-61-68 12:20:00* Test Item Value Reference Range Interpretation Comments Urine Leukocyte Esterase (test code = 5799-2) NEGATIVE NEGATIVE [facility]villeUrine Rbozgny4880-38-26 12:20:00* Test Item Value Reference Range Interpretation Comments Urine Nitrite (test code = 10974-8) NEGATIVE NEGATIVE [facility]villeUrine Hkqlifm3951-36-30 12:20:00* Test Item Value Reference Range Interpretation Comments Urine Protein (test code = 5804-0) NEGATIVE NEGATIVE [facility]villeUrine Glucose (UA)2019-12-23 12:20:00* Test Item Value Reference Range Interpretation Comments Urine Glucose (UA) (test code = 2349-9) 2+ NEGATIVE [facility]villeUrine Iecvcwg6572-52-58 12:20:00* Test Item Value Reference Range Interpretation Comments Urine Ketones (test code = 27387-3) TRACE NEGATIVE H [facility]villeUrine Qazwrxhhoiwy7360-35-41 12:20:00* Test Item Value Reference Range Interpretation Comments Urine Urobilinogen (test code = 77934-6) 0.2 0.2-1 [facility]villeUrine Pjwlgjohp8759-31-87 12:20:00* Test Item Value Reference Range Interpretation Comments Urine Bilirubin (test code = 1978-6) NEGATIVE NEGATIVE [facility] Agmwf3236-41-27 12:20:00* Test Item Value Reference Range Interpretation Comments Urine Blood (test code = 36356-8) TRACE NEGATIVE H [facility] StephenvilleUrine Fyore4967-28-59 12:20:00* Test Item Value Reference Range Interpretation Comments Urine Color (test code = 5778-6) YELLOW YELLOW [facility]villeUrine Jsoqswz4977-28-63 12:20:00* Test Item Value Reference Range Interpretation Comments Urine Clarity (test code = 76291-5) CLEAR CLEAR [facility]villeU[facility] Specific Kaybljd4695-62-18 12:20:00 * Test Item Value Reference Range Interpretation Comments Urine Specific Duff (test code = 5811-5) 1.025 1.010-1.02 5 [facility]villeUrine gF0461-10-52 12:20:00* Test Item Value Reference Range Interpretation Comments Urine pH (test code = 31250-6) 5.5 5-7 [facility]villeUrine Leukocyte Hensbbob2759-50-26 12:20:00* Test Item Value Reference Range Interpretation Comments Urine Leukocyte Esterase (test code = 5799-2) NEGATIVE NEGATIVE [facility]villeUrine Qizrwku9477-40-60 12:20:00* Test Item Value Reference Range Interpretation Comments Urine Nitrite (test code = 25247-3) NEGATIVE NEGATIVE [facility]villeUrine Stiqnez2617-82-18 12:20:00* Test Item Value Reference Range Interpretation Comments Urine Protein (test code = 5804-0) NEGATIVE NEGATIVE [facility]villeUrine Glucose (UA)2019-12-23 12:20:00* Test Item Value Reference Range Interpretation Comments Urine Glucose (UA) (test code = 2349-9) 2+ NEGATIVE [facility]villeUrine Uqwhfzw3206-06-57 12:20:00* Test Item Value Reference Range Interpretation Comments Urine Ketones (test code = 84490-3) TRACE NEGATIVE H [facility]villeUrine Jokmcwocjwxy3248-63-50 12:20:00* Test Item Value Reference Range Interpretation Comments Urine Urobilinogen (test code = 09906-3) 0.2 0.2-1 [facility]villeUrine Ddjjqakor9860-76-28 12:20:00* Test Item Value Reference Range Interpretation Comments Urine Bilirubin (test code = 1978-6) NEGATIVE NEGATIVE [facility] Wzqdp0814-15-97 12:20:00* Test Item Value Reference Range Interpretation Comments Urine Blood (test code = 72597-8) TRACE NEGATIVE H [facility] Clubodium Tkhqt8969-72-34 12:18:00* Test Item Value Reference Range Interpretation Comments Sodium Level (test code = 2951-2) 140 136-145 [facility]villePotassium Ajatk2805-62-37 12:18:00* Test Item Value Reference Range Interpretation Comments Potassium Level (test code = 2823-3) 3.8 3.5-5.1 [facility] StephenvilleChloride Wybbs7974-64-17 12:18:00* Test Item Value Reference Range Interpretation Comments Chloride Level (test code = 2075-0) 103 98-107 [facility] StephenvilleCarbon Dioxide Chiae0762-14-57 12:18:00* Test Item Value Reference Range Interpretation Comments Carbon Dioxide Level (test code = 2028-9) 25 22-29 [facility] StephenvilleAnion Xrl1777-98-51 12:18:00* Test Item Value Reference Range Interpretation Comments Anion Gap (test code = 76455-6) 15.8 8-16 [facility] StephenvilleBlood Urea Bqhnajuv4155-38-71 12:18:00* Test Item Value Reference Range Interpretation Comments Blood Urea Nitrogen (test code = 3094-0) 12 - [facility] StephenvilleCreatinine2020-04-06 12:18:00* Test Item Value Reference Range Interpretation Comments Creatinine (test code = 2160-0) 0.94 0.57-1.11 [facility]villeBUN/Creatinine Atslx9268-67-38 12:18:00* Test Item Value Reference Range Interpretation Comments BUN/Creatinine Ratio (test code = 3097-3) 13 03-12 [facility] StephenvilleEstimat Glomerular Filtration Rate 2019-12-23 12:18:00* Test Item Value Reference Range Interpretation Comments Estimat Glomerular Filtration Rate (test code = 393799360) 60 >60 Ranges were taken from the National Kidney Disease Education Program and the [facility] Foundation literature.Reference ranges:60 or greater: Peglfe26-07 ( for 3 consecutive months): Chronic kidney disease 15 or less: Kidney failureTexas Health Harris [facility] Hospital StephenvilleGlucose Nrfgv1891-44-84 12:18:00* Test Item Value Reference Range Interpretation Comments Glucose Level (test code = VRM1920) 260 74-118 H [facility] StephenvilleCalcium Ywsrr1089-88-64 12:18:00* Test Item Value Reference Range Interpretation Comments Calcium Level (test code = 24415-6) 9.8 8.4-10.2 [facility]villeMagnesium Ffdwj9982-86-54 12:18:00* Test Item Value Reference Range Interpretation Comments Magnesium Level (test code = 22495-7) 1.9 1.3-2.1 [facility]villeTotal Pdjskpmga0878-85-18 12:18:00* Test Item Value Reference Range Interpretation Comments Total Bilirubin (test code = 1975-2) 0.4 0.2-1.2 [facility] StephenvilleAspartate Amino Transf (AST/SGOT) 2019-12-23 12:18:00* Test Item Value Reference Range Interpretation Comments Aspartate Amino Transf (AST/SGOT) (test code = Aspartate Amino Transf (AST/SGOT)) 76 5-34 H [facility] StephenvilleAlanine Aminotransferase (ALT/SGPT) 2019-12-23 12:18:00* Test Item Value Reference Range Interpretation Comments Alanine Aminotransferase (ALT/SGPT) (test code = 1742-6) 116 0-55 H [facility] StephenvilleTotal Fatxcxt2459-12-32 12:18:00* Test Item Value Reference Range Interpretation Comments Total Protein (test code = 2885-2) 7.3 6.5-8.1 [facility] StephenvilleAlbumin2020-04-06 12:18:00* Test Item Value Reference Range Interpretation Comments Albumin (test code = 1751-7) 4.2 3.5-5.0 [facility] StephenvilleGlobulin2020-04-06 12:18:00* Test Item Value Reference Range Interpretation Comments Globulin (test code = 21981-2) 3.1 2.3-3.5 [facility] StephenvilleAlbumin/Globulin Nzhwz0977-38-05 12:18:00 * Test Item Value Reference Range Interpretation Comments Albumin/Globulin Ratio (test code = 1759-0) 1.4 0.8-2.0 [facility]villeAlkaline Mgfapdcalpd7093-24-44 12:18:00* Test Item Value Reference Range Interpretation Comments Alkaline Phosphatase (test code = 6768-6) 94 40-150 [facility] StephenvilleCreatine Upiutk6381-29-47 12:18:00* Test Item Value Reference Range Interpretation Comments Creatine Kinase (test code = 2157-6) 78 29-168 [facility] StephenvilleAmylase Umgcd4574-37-67 12:18:00* Test Item Value Reference Range Interpretation Comments Amylase Level (test code = 1798-8) 51 25-125 [facility] StephenvilleLipase2020-04-06 12:18:00* Test Item Value Reference Range Interpretation Comments Lipase (test code = 3040-3) 95 8-78 H [facility] Clubodium Joobf5019-67-34 12:18:00* Test Item Value Reference Range Interpretation Comments Sodium Level (test code = 2951-2) 140 136-145 [facility]villePotassium Tndvk1486-30-67 12:18:00* Test Item Value Reference Range Interpretation Comments Potassium Level (test code = 2823-3) 3.8 3.5-5.1 [facility] StephenvilleChloride Surab6287-40-40 12:18:00* Test Item Value Reference Range Interpretation Comments Chloride Level (test code = 2075-0) 103 98-107 [facility] StephenvilleCarbon Dioxide Gqftg6075-91-31 12:18:00* Test Item Value Reference Range Interpretation Comments Carbon Dioxide Level (test code = 2028-9) 25 22-29 [facility] StephenvilleAnion Dkh1569-49-78 12:18:00* Test Item Value Reference Range Interpretation Comments Anion Gap (test code = 14788-7) 15.8 8-16 [facility] StephenvilleBlood Urea Lkvrffwp6744-89-92 12:18:00* Test Item Value Reference Range Interpretation Comments Blood Urea Nitrogen (test code = 3094-0) 12 7- [facility] StephenvilleCreatinine2020-04-06 12:18:00* Test Item Value Reference Range Interpretation Comments Creatinine (test code = 2160-0) 0.94 0.57-1.11 [facility]villeBUN/Creatinine Gfsgp2440-21-48 12:18:00* Test Item Value Reference Range Interpretation Comments BUN/Creatinine Ratio (test code = 3097-3) 13 6- [facility] StephenvilleEstimat Glomerular Filtration Rate 2019-12-23 12:18:00* Test Item Value Reference Range Interpretation Comments Estimat Glomerular Filtration Rate (test code = 470012821) 60 >60 Ranges were taken from the National Kidney Disease Education Program and the [facility] Foundation literature.Reference ranges:60 or greater: Twggbc88-26 ( for 3 consecutive months): Chronic kidney disease 15 or less: Kidney failureTexas Health Harris Methodist Hospital StephenvilleGlucose Rkzft0483-84-14 12:18:00* Test Item Value Reference Range Interpretation Comments Glucose Level (test code = WBT5812) 260 74-118 H [facility] StephenvilleCalcium Upyet5480-82-43 12:18:00* Test Item Value Reference Range Interpretation Comments Calcium Level (test code = 65662-0) 9.8 8.4-10.2 [facility] StephenvilleMagnesium Cyzcv3923-67-15 12:18:00* Test Item Value Reference Range Interpretation Comments Magnesium Level (test code = 51830-1) 1.9 1.3-2.1 [facility]villeTotal Tbcjpbpus9896-00-90 12:18:00* Test Item Value Reference Range Interpretation Comments Total Bilirubin (test code = 1975-2) 0.4 0.2-1.2 [facility] StephenvilleAspartate Amino Transf (AST/SGOT) 2019-12-23 12:18:00* Test Item Value Reference Range Interpretation Comments Aspartate Amino Transf (AST/SGOT) (test code = Aspartate Amino Transf (AST/SGOT)) 76 5-34 H [facility] StephenvilleAlanine Aminotransferase (ALT/SGPT) 2019-12-23 12:18:00* Test Item Value Reference Range Interpretation Comments Alanine Aminotransferase (ALT/SGPT) (test code = 1742-6) 116 0-55 [facility]villeTotal [id number] 12:18:00* Test Item Value Reference Range Interpretation Comments Total Protein (test code = 2885-2) 7.3 6.5-8.1 [facility]villeAlbumin2020-04-[facility] 12:18:00* Test Item Value Reference Range Interpretation Comments Albumin (test code = 1751-7) 4.2 3.5-5.0 [facility]villeGlobulin2020-04-06 12:18:00* Test Item Value Reference Range Interpretation Comments Globulin (test code = 94590-2) 3.1 2.3-3.5 [facility]villeAlbumin/Globulin Jrhnx0027-21-50 12:18:00 * Test Item Value Reference Range Interpretation Comments Albumin/Globulin Ratio (test code = 1759-0) 1.4 0.8-2.0 [facility]villeAlkaline Sweffjdsfju9243-25-50 12:18:00* Test Item Value Reference Range Interpretation Comments Alkaline Phosphatase (test code = 6768-6) 94 40-150 [facility] StephenvilleCreatine Unbuyq8097-02-75 12:18:00* Test Item Value Reference Range Interpretation Comments Creatine Kinase (test code = 2157-6) 78 29-168 [facility] StephenvilleAmylase Sivij1848-57-00 12:18:00* Test Item Value Reference Range Interpretation Comments Amylase Level (test code = 1798-8) 51 25-125 [facility] StephenvilleLipase2020-04-06 12:18:00* Test Item Value Reference Range Interpretation Comments Lipase (test code = 3040-3) 95 8-78 [facility] StephenvilleWhite Blood Talab9972-67-38 12:03:00* Test Item Value Reference Range Interpretation Comments White Blood Count (test code = 6690-2) 6.34 4.8-10.8 [facility]villeRed Blood Kzsjv7625-26-98 12:03:00* Test Item Value Reference Range Interpretation Comments Red Blood Count (test code = 789-8) 5.03 3.6-5.1 [facility]villeHemoglobin2020-04-06 12:03:00* Test Item Value Reference Range Interpretation Comments Hemoglobin (test code = 38388-6) 15.1 12.0-16.0 [facility]villeHematocrit2020-04-06 12:03:00* Test Item Value Reference Range Interpretation Comments Hematocrit (test code = 4544-3) 45.7 34.2-44.1 H [facility] StephenvilleMean Corpuscular Kyoabq4454-01-68 12:03:00* Test Item Value Reference Range Interpretation Comments Mean Corpuscular Volume (test code = 787-2) 90.9 81-99 [facility]villeMean Corpuscular Spralulnlw8027-43-94 12:03:00* Test Item Value Reference Range Interpretation Comments Mean Corpuscular Hemoglobin (test code = 785-6) 30.0 28-32 [facility]villeMean Corpuscular Hemoglobin Concent 2019-12-23 12:03:00* Test Item Value Reference Range Interpretation Comments Mean Corpuscular Hemoglobin Concent (test code = 786-4) 33.0 31-35 [facility]villeRed Cell Distribution Ttqyq8208-86-83 12:03:00* Test Item Value Reference Range Interpretation Comments Red Cell Distribution Width (test code = 83398-1) 13.1 11.7 -14.4 [facility] StephenvillePlatelet Yalce9816-37-55 12:03:00* Test Item Value Reference Range Interpretation Comments Platelet Count (test code = 777-3) 236 140-360 [facility]villeNeutrophils (%) (Auto)2019-12-23 12:03:00 * Test Item Value Reference Range Interpretation Comments Neutrophils (%) (Auto) (test code = 25802-9) 54.9 38.7-80.0 [facility]villeLymphocytes (%) (Auto)2019-12-23 12:03:00 * Test Item Value Reference Range Interpretation Comments Lymphocytes (%) (Auto) (test code = 736-9) 33.4 18.0-39.1 [facility]villeMonocytes (%) (Auto)2019-12-23 12:03:00* Test Item Value Reference Range Interpretation Comments Monocytes (%) (Auto) (test code = 5905-5) 7.7 4.4-11.3 [facility]villeEosinophils (%) (Auto)2019-12-23 12:03:00 * Test Item Value Reference Range Interpretation Comments Eosinophils (%) (Auto) (test code = 713-8) 2.5 0.0-6.0 [facility]villeBasophils (%) (Auto)2019-12-23 12:03:00* Test Item Value Reference Range Interpretation Comments Basophils (%) (Auto) (test code = 706-2) 0.6 0.0-1.0 [facility] StephenvilleIM GRANULOCYTES %2019-12-23 12:03:00* Test Item Value Reference Range Interpretation Comments IM GRANULOCYTES % (test code = IM GRANULOCYTES %) 0.9 0.0- 1.0 [facility]villeNeutrophils # (Auto)2019-12-23 12:03:00* Test Item Value Reference Range Interpretation Comments Neutrophils # (Auto) (test code = 751-8) 3.5 2.1-6.9 [facility]villeLymphocytes # (Auto)2019-12-23 12:03:00* Test Item Value Reference Range Interpretation Comments Lymphocytes # (Auto) (test code = 96614-1) 2.1 1.0-3.2 [facility]villeMonocytes # (Auto)2019-12-23 12:03:00* Test Item Value Reference Range Interpretation Comments Monocytes # (Auto) (test code = 742-7) 0.5 0.2-0.8 [facility]villeEosinophils # (Auto)2019-12-23 12:03:00* Test Item Value Reference Range Interpretation Comments Eosinophils # (Auto) (test code = 711-2) 0.2 0.0-0.4 [facility]villeBasophils # (Auto)2019-12-23 12:03:00* Test Item Value Reference Range Interpretation Comments Basophils # (Auto) (test code = 704-7) 0.0 0.0-0.1 [facility] StephenvilleAbsolute Immature Granulocyte (auto 2019-12-23 12:03:00* Test Item Value Reference Range Interpretation Comments Absolute Immature Granulocyte (auto (everett t code = Absolute Immature Granulocyte (auto) 0.06 0-0.1 [facility] StephenvilleWhite Blood Hnptd4382-51-13 12:03:00* Test Item Value Reference Range Interpretation Comments White Blood Count (test code = 6690-2) 6.34 4.8-10.8 [facility]villeRed Blood Xieqv5829-57-59 12:03:00* Test Item Value Reference Range Interpretation Comments Red Blood Count (test code = 789-8) 5.03 3.6-5.1 [facility]villeHemoglobin2020-04-06 12:03:00* Test Item Value Reference Range Interpretation Comments Hemoglobin (test code = 61580-5) 15.1 12.0-16.0 [facility]villeHematocrit2020-04-06 12:03:00* Test Item Value Reference Range Interpretation Comments Hematocrit (test code = 4544-3) 45.7 34.2-44.1 H [facility]villeMean Corpuscular Qavtxj3734-57-27 12:03:00* Test Item Value Reference Range Interpretation Comments Mean Corpuscular Volume (test code = 787-2) 90.9 81-99 [facility]villeMean Corpuscular Wieawwpvup1843-70-96 12:03:00* Test Item Value Reference Range Interpretation Comments Mean Corpuscular Hemoglobin (test code = 785-6) 30.0 28-32 [facility]villeMean Corpuscular Hemoglobin Concent 2019-12-23 12:03:00* Test Item Value Reference Range Interpretation Comments Mean Corpuscular Hemoglobin Concent (test code = 786-4) 33.0 31-35 [facility] StephenvilleRed Cell Distribution Oiybt7781-57-15 12:03:00* Test Item Value Reference Range Interpretation Comments Red Cell Distribution Width (test code = 10176-5) 13.1 11.7 -14.4 [facility] StephenvillePlatelet Blmax4804-76-26 12:03:00* Test Item Value Reference Range Interpretation Comments Platelet Count (test code = 777-3) 236 140-360 [facility] StephenvilleNeutrophils (%) (Auto)2019-12-23 12:03:00 * Test Item Value Reference Range Interpretation Comments Neutrophils (%) (Auto) (test code = 33602-0) 54.9 38.7-80.0 [facility] StephenvilleLymphocytes (%) (Auto)2019-12-23 12:03:00 * Test Item Value Reference Range Interpretation Comments Lymphocytes (%) (Auto) (test code = 736-9) 33.4 18.0-39.1 [facility]villeMonocytes (%) (Auto)2019-12-23 12:03:00* Test Item Value Reference Range Interpretation Comments Monocytes (%) (Auto) (test code = 5905-5) 7.7 4.4-11.3 [facility]villeEosinophils (%) (Auto)2019-12-23 12:03:00 * Test Item Value Reference Range Interpretation Comments Eosinophils (%) (Auto) (test code = 713-8) 2.5 0.0-6.0 [facility]villeBasophils (%) (Auto)2019-12-23 12:03:00* Test Item Value Reference Range Interpretation Comments Basophils (%) (Auto) (test code = 706-2) 0.6 0.0-1.0 [facility]villeIM GRANULOCYTES %2019-12-23 12:03:00* Test Item Value Reference Range Interpretation Comments IM GRANULOCYTES % (test code = IM GRANULOCYTES %) 0.9 0.0- 1.0 [facility]villeNeutrophils # (Auto)2019-12-23 12:03:00* Test Item Value Reference Range Interpretation Comments Neutrophils # (Auto) (test code = 751-8) 3.5 2.1-6.9 [facility] StephenvilleLymphocytes # (Auto)2019-12-23 12:03:00* Test Item Value Reference Range Interpretation Comments Lymphocytes # (Auto) (test code = 63695-4) 2.1 1.0-3.2 [facility]villeMonocytes # (Auto)2019-12-23 12:03:00* Test Item Value Reference Range Interpretation Comments Monocytes # (Auto) (test code = 742-7) 0.5 0.2-0.8 [facility]villeEosinophils # (Auto)2019-12-23 12:03:00* Test Item Value Reference Range Interpretation Comments Eosinophils # (Auto) (test code = 711-2) 0.2 0.0-0.4 [facility]villeBasophils # (Auto)2019-12-23 12:03:00* Test Item Value Reference Range Interpretation Comments Basophils # (Auto) (test code = 704-7) 0.0 0.0-0.1 [facility] StephenvilleAbsolute Immature Granulocyte (auto 2019-12-23 12:03:00* Test Item Value Reference Range Interpretation Comments Absolute Immature Granulocyte (auto (everett t code = Absolute Immature Granulocyte (auto) 0.06 0-0.1 [facility]
[2020-05-29 15:14] LABS: BASOPHILS % 0.5 % (0.0-1.0); EOSINOPHILS # (AUTO) 0.2 (0.0-0.4); EOSINOPHILS % 3.3 % (0.0-6.0); HEMATOCRIT 41.5 % (34.2-44.1); HEMOGLOBIN 13.4 g/dL (12.0-16.0); LYMPHOCYTES % 32.7 % (18.0-39.1); MEAN CORPUSCULAR HEMOGLOBIN 29.3 pg (28-32); MEAN CORPUSCULAR HGB CONC 32.3 g/dL (31-35); MEAN CORPUSCULAR VOLUME 90.6 fL (81-99); MONOCYTES # (AUTO) 0.4 (0.2-0.8); NEUTROPHILS # (AUTO) 3.4 (2.1-6.9); NEUTROPHILS % 55.7 % (38.7-80.0); PLATELET COUNT 234 x10e3/uL (140-360); RED BLOOD COUNT 4.58 x10e6/uL (3.6-5.1); RED CELL DISTRIBUTION WIDTH 12.6 % (11.7-14.4)
[2020-05-29] MEDS ORDERED: LIDOCAINE HCL 2% JELLY 5 ML TUBE TOP ONE (15:30)
[2020-05-29 15:34] LABS: ALANINE AMINOTRANSFERASE 66 IU/L (0-55); ALBUMIN 3.9 g/dL (3.5-5.0); ALBUMIN/GLOBULIN RATIO 1.3 (0.8-2.0); ALKALINE PHOSPHATASE 92 IU/L (40-150); ANION GAP 18.3 mmol/L (8-16); BLOOD UREA NITROGEN 14 mg/dL (7-26); BUN/CREATININE RATIO 18 (6-25); CARBON DIOXIDE 20 mmol/L (22-29); CHLORIDE 104 mmol/L (98-107); EST GLOMERULAR FILTRATION RATE > 60 ML/MIN (60-); GLUCOSE 206 mg/dL (74-118); POTASSIUM 4.3 mmol/L (3.5-5.1); SODIUM 138 mmol/L (136-145)
--- OUTSIDE RECORDS SUMMARY | 2020-05-29 16:29 | XMS REPORT | Continuity of Care Document ---
Author Author [facility] Organization [facility]ly [facility] Address [address] [place] [address] Phone Unavailable Care Team Providers Care Music Instructor Name Role Phone AMBER CADET MD PCP Emory Berkowitz Attphys Unavailable KOURTNEY COLLADO Attphys Unavailable YUKO CORMIERphyhayden Unavailable Payers Payer Name Policy Type Policy Number Effective Date Expiration Date S avelino [facility] [id number] [facility] [id number] [facility] [id number] [facility] Problems This patient has no known problems. [...] 6 Hours as needed for Abdominal Pain [facility] Ondansetron (Ondansetron Odt) 8 Mg Tab.rapdis Ondanset reg (Ondansetron Odt) 8 Mg Tab.rapdis 2019-12-30 00:00:00 Yes Adria Collado 1 Every 6 Hours as needed for Nausea And Vomiting [facility] Ondansetron Hcl (Zofran*) 4 Mg Tablet, 4 Mg Sublingual Ondansetron Hcl (Zofran*) 4 Mg Tablet, 4 Mg Sublingual 2019-12-23 00:00:00 2019-12-24 00:00:00 No Bimal Dave [employer] 4 Every 6 Hours as needed for Nausea [facility] Tramadol Hcl (Ultram) 50 Mg Tablet, 50 Mg Oral Tramado l Hcl (Ultram) 50 Mg Tablet, 50 Mg Oral 2019-12-23 00:00:00 2019-12-24 00:00:00 No Puma Dave [employer] Engineer 50 Every 6 Hours as needed for Abdominal Pa in [facility] Atorvastatin Calcium 20 Mg Tablet Atorvastatin Calcium 20 Mg Tablet Yes [address] [facility] Cefdinir (Omnicef) 300 Mg Capsule Cefdinir (Omnicef) 300 Mg Capsule Yes [address] [facility] Ondansetron Hcl 4 Mg Tablet Ondansetron Hcl 4 Mg Tablet Yes As Needed [facility] Fluconazole 100 Mg Tablet, 150 Mg Oral Fluconazole 100 Mg Tablet , 150 Mg Oral 2019-12-26 00:00:[address] [facility] Procedures Procedure Date / Time Performed Performing Clinician Sourc e EGD with biopsy 2019-12-26 00:00:00 RAIMUNDO SU [facility] Computed tomography of abdomen and pelvis with contrast 2019 00:00:[address] [facility] Encounters Start Date/Time End Date/Time En[facility] ID Source 2019-12-30 16:14:00 2019-12-30 20:02:00 Departed Emergency Room 1 ADRIA COLLADO [facility] [id number] [facility] 2019-12-26 07:45:00 2019-12-26 07:45:00 Registered Surgical Day Care [facility] [id number] [facility] 2019-12-23 10:47:00 2019-12-23 14:22:00 Departed Emergency Room 1 YUKO CORMIER [facility] [id number] [facility] Results Test Description Test Time Test Comments Results Result Comments Source CT ABDOMEN/PELVIS W 2020-05-27 14:45:00 [facility] [address] [address] Patient Name: OPAL SHETH MR #: [id number] : 1955 Age/Sex: 64/F Req #: [id number] Adm Physician: Ordered by: Tutu Berkowitz MD Report #: [id number] Location: ER Room/Bed: Procedure: CT/CT ABDOMEN/PELVIS W [...] MD CT ABD/PEL WITH CONTRAST-HOPD 2019-12-30 18:22:00 [place] [address] Patient Name: OPAL SHETH MR #: [id number] : 1955 Age/Sex: 64/F Req #: [id number] Adm Physician: Ordered by: DARIA COLLADO Report #: [id number] Location: [facility] Room/Bed: Procedure: [id number] HOPD/CT ABD/PEL WITH CONTRAST-HOPD Exam Date: 12/30/19 [...] Test Item Stool Calprotectin (test code = 84134-2) <16 0-120 Concentration Interpretation Follow-Up<16 - 50 ug/g Normal None>50 -120 ug/g Borderline Re-evaluate in 4-6 weeks >120 ug/g Abnormal Repeat as clinically indicatedPerformed at: [facility] [address] [place], [place] [id number] Director: Aviva Thorne MD, Phone: [phone] [facility] Regional Medical Centertool Lactoferrin (LAB)2019-12-26 15:31:00* Test Item Value Reference Range Interpretation Comments Stool Lactoferrin (LAB) (test code = 21334-5) NEGATIVE NEGATIVE Testing on stool aspirate specimens is outside para operator claims since specime n type not validated on this assay.[facility] Clostridium Difficile Toxin A & [id number] 15:31:00* Test Item Value Reference Range Interpretation Comments Clostridium Difficile Toxin A & B (test code = 982337473) NEGATIVE NEGATIVE Testing on stool aspirate specimens is outside para operator claims since specime n type not validated on this assay.[facility]2019-12-23 13:31:00 [place] [address] Patient Name: OPAL SHETH MR #: [id number] : 1955 Age/Sex: 64/F Req #: [id number] Adm Physician: Ordered by: BIMAL DAVE WINDING MACHINE OPERATOR Report #: [id number] Location: ER Room/Bed: Procedure: [id number] DX /CHEST SINGLE (PORTABLE) Exam Date: 12/23/19 [...] COPY TO: BIMAL DAVE NP CT ABDOMEN/PELVIS [id number] 13:31:00 [place] [address] Patient Name: OPAL SHETH MR #: [id number] : 1955 Age/Sex: 64/F Req #: [id number] Adm Physician: Ordered by: BIMAL DAVE NP Report #: [id number] Location: ER Room/Bed: Procedure: [id number] CT /CT ABDOMEN/PELVIS W Exam Date: 12/23/19 [...] COPY TO: BIMAL DAVE NP Creatine Kinase [id number] 12:25:00* Test Item Value Reference Range Interpretation Comments Creatine Kinase MB (test code = 31898-2) 1.00 0-5.[address] [facility] [id number] 12:25:00* Test Item Value Reference Range Interpretation Comments Troponin I (test code = 71628-7) < 0.001 0-0.[address] [facility] HospitalCreat[facility] Kinase [id number] 12:25:00* Test Item Value Reference Range Interpretation Comments Creatine Kinase MB (test code = 93641-7) 1.00 0-5.[address] [facility] HospitalTroponin [id number] 12:25:00* Test Item Value Reference Range Interpretation Comments Troponin I (test code = 32798-9) < 0.001 0-0.[address] [facility]Urine [id number] 12:24:00* Test Item Value Reference Range Interpretation Comments Urine WBC (test code = 5821-4) 6-10 0-[address] [facility] IQD6883-36-77 12:24:00* Test Item Value Reference Range Interpretation Comments Urine RBC (test code = 29951-2) 6-10 0-[address] [facility] Rcsmsipu1695-74-94 12:24:00* Test Item Value Reference Range Interpretation Comments Urine Bacteria (test code = 90795-0) RARE NONE [facility] Epithelial Wqixy2145-52-09 12:24:00 * Test Item Value Reference Range Interpretation Comments Urine Epithelial Cells (test code = 92219-4) FEW NONE [facility] Renal Epithelial Jbmrs5472-04-55 12:24:00* Test Item Value Reference Range Interpretation Comments Urine Renal Epithelial Cells (test code = 17876-1) FEW NON E H [facility] Svaka3470-45-07 12:24:00* Test Item Value Reference Range Interpretation Comments Urine Mucus (test code = 8247-9) MANY RARE H [facility] HospitalU[facility] UUE0757-48-05 12:24:00* Test Item Value Reference Range Interpretation Comments Urine WBC (test code = 5821-4) 6-10 0-[address] [facility] [id number] 12:24:00* Test Item Value Reference Range Interpretation Comments Urine RBC (test code = 23938-5) 6-10 0-[address] [facility] Uiuebjuf8993-76-54 12:24:00* Test Item Value Reference Range Interpretation Comments Urine Bacteria (test code = 92671-0) RARE NONE [facility] Epithelial Xgbgw0506-78-16 12:24:00 * Test Item Value Reference Range Interpretation Comments Urine Epithelial Cells (test code = 63888-6) FEW NONE [facility] Renal Epithelial Gcxtq9022-75-27 12:24:00* Test Item Value Reference Range Interpretation Comments Urine Renal Epithelial Cells (test code = 82071-0) FEW NON E H [facility] Hospital[facility] Xjgpq1047-63-98 12:24:00* Test Item Value Reference Range Interpretation Comments Urine Mucus (test code = 8247-9) MANY RARE H [facility] Hospital[facility] Lnepw0864-11-45 12:20:00* Test Item Value Reference Range Interpretation Comments Urine Color (test code = 5778-6) YELLOW YELLOW [facility] Gssuchc3216-56-22 12:20:00* Test Item Value Reference Range Interpretation Comments Urine Clarity (test code = 46948-2) CLEAR CLEAR [facility] Specific Zxrrguw0086-37-59 12:20:00 * Test Item Value Reference Range Interpretation Comments Urine Specific [place] (test code = 5811-5) 1.025 1.010-1.[address] [facility] jW2433-91-47 12:20:00* Test Item Value Reference Range Interpretation Comments Urine pH (test code = 09337-0) 5.5 5-[address] [facility] Leukocyte Rfspwqyv0091-11-29 12:20:00* Test Item Value Reference Range Interpretation Comments Urine Leukocyte Esterase (test code = 5799-2) NEGATIVE NEGATIVE [facility] Cjsojri0464-77-13 12:20:00* Test Item Value Reference Range Interpretation Comments Urine Nitrite (test code = 64675-3) NEGATIVE NEGATIVE [facility] Bvrihok3453-12-84 12:20:00* Test Item Value Reference Range Interpretation Comments Urine Protein (test code = 5804-0) NEGATIVE NEGATIVE [facility] Glucose (UA)2019-12-23 12:20:00* Test Item Value Reference Range Interpretation Comments Urine Glucose (UA) (test code = 2349-9) 2+ NEGATIVE [facility] Zsjfhio2889-72-24 12:20:00* Test Item Value Reference Range Interpretation Comments Urine Ketones (test code = 53035-5) TRACE NEGATIVE H [facility] Gndglmimwkcc8804-64-87 12:20:00* Test Item Value Reference Range Interpretation Comments Urine Urobilinogen (test code = 01279-7) 0.2 0.2-[address] [facility] Jbonnyxgz6106-66-76 12:20:00* Test Item Value Reference Range Interpretation Comments Urine Bilirubin (test code = 1978-6) NEGATIVE NEGATIVE [facility] Vfuhz7215-93-95 12:20:00* Test Item Value Reference Range Interpretation Comments Urine Blood (test code = 67537-2) TRACE NEGATIVE H [facility] Ukizy6820-67-56 12:20:00* Test Item Value Reference Range Interpretation Comments Urine Color (test code = 5778-6) YELLOW YELLOW [facility] Jfkwvkj7836-05-45 12:20:00* Test Item Value Reference Range Interpretation Comments Urine Clarity (test code = 92163-9) CLEAR CLEAR [facility] Specific Skuvxjz7418-22-27 12:20:00 * Test Item Value Reference Range Interpretation Comments Urine Specific [place] (test code = 5811-5) 1.025 1.010-1.[address] [facility] jA5871-56-92 12:20:00* Test Item Value Reference Range Interpretation Comments Urine pH (test code = 07698-9) 5.5 5-[address] [facility] Leukocyte Dolkfpds2235-37-30 12:20:00* Test Item Value Reference Range Interpretation Comments Urine Leukocyte Esterase (test code = 5799-2) NEGATIVE NEGATIVE [facility] Owfuvbn5790-23-40 12:20:00* Test Item Value Reference Range Interpretation Comments Urine Nitrite (test code = 54574-7) NEGATIVE NEGATIVE [facility] Nkagdse7795-27-83 12:20:00* Test Item Value Reference Range Interpretation Comments Urine Protein (test code = 5804-0) NEGATIVE NEGATIVE [facility] Glucose (UA)2019-12-23 12:20:00* Test Item Value Reference Range Interpretation Comments Urine Glucose (UA) (test code = 2349-9) 2+ NEGATIVE [facility] Sadjcvl8059-38-62 12:20:00* Test Item Value Reference Range Interpretation Comments Urine Ketones (test code = 98159-1) TRACE NEGATIVE H [facility] HospitalU[facility] Eoboeqzhdzmd6904-65-93 12:20:00* Test Item Value Reference Range Interpretation Comments Urine Urobilinogen (test code = 66419-5) 0.2 0.2-[address] [facility] Ixgmrwpmm8334-16-78 12:20:00* Test Item Value Reference Range Interpretation Comments Urine Bilirubin (test code = 1978-6) NEGATIVE NEGATIVE [facility] Lqvhk2881-69-30 12:20:00* Test Item Value Reference Range Interpretation Comments Urine Blood (test code = 08804-6) TRACE NEGATIVE [facility] Lpist5868-37-81 12:18:00* Test Item Value Reference Range Interpretation Comments Sodium Level (test code = 2951-2) 140 136-[address] [facility]Potassium Yhcqz7331-92-52 12:18:00* Test Item Value Reference Range Interpretation Comments Potassium Level (test code = 2823-3) 3.8 3.5-5.[address] [facility] HospitalChloride Yvnck7284-06-91 12:18:00* Test Item Value Reference Range Interpretation Comments Chloride Level (test code = 2075-0) 103 98-[address] [facility] HospitalCarbon Dioxide Ogekq4358-91-69 12:18:00* Test Item Value Reference Range Interpretation Comments Carbon Dioxide Level (test code = 2028-9) 25 22-[address] [facility] HospitalAnion Bvz4894-13-35 12:18:00* Test Item Value Reference Range Interpretation Comments Anion Gap (test code = 63105-2) 15.8 8-[address] [facility] HospitalBlood Urea Tfsuhuxq5294-01-25 12:18:00* Test Item Value Reference Range Interpretation Comments Blood Urea Nitrogen (test code = 3094-0) 12 - [facility] HospitalCreatinine2020-04-06 12:18:00* Test Item Value Reference Range Interpretation Comments Creatinine (test code = 2160-0) 0.94 0.57-1.[address] [facility] HospitalBUN/Creatinine Itwij9310-81-40 12:18:00* Test Item Value Reference Range Interpretation Comments BUN/Creatinine Ratio (test code = 3097-3) 13 03-[address] [facility] HospitalEstimat Glomerular Filtration Rate 2019-12-23 12:18:00* Test Item Value Reference Range Interpretation Comments Estimat Glomerular Filtration Rate (test code = 346193743) 60 >60 Ranges were taken from the National Kidney Disease Education Program and the [facility] literature.Reference ranges:60 or greater: Cpefhd08-13 ( for 3 consecutive months): Chronic kidney disease 15 or less: Kidney failureM[address] Trail [facility] HospitalGlucose Vyxzg6053-44-85 12:18:00* Test Item Value Reference Range Interpretation Comments Glucose Level (test code = QQQ7329) 260 74-[address] [facility] HospitalCalcium Ergjx5528-84-90 12:18:00* Test Item Value Reference Range Interpretation Comments Calcium Level (test code = 51513-8) 9.8 8.4-10.[address] [facility] HospitalMagnesium Xlxmk8042-01-70 12:18:00* Test Item Value Reference Range Interpretation Comments Magnesium Level (test code = 75339-4) 1.9 1.3-2.[address] [facility] HospitalTotal Ykvnfhwge8490-94-82 12:18:00* Test Item Value Reference Range Interpretation Comments Total Bilirubin (test code = 1975-2) 0.4 0.2-1.[address] [facility] HospitalAspartate Amino Transf (AST/SGOT) 2019-12-23 12:18:00* Test Item Value Reference Range Interpretation Comments Aspartate Amino Transf (AST/SGOT) (test code = Aspartate Amino Transf (AST/SGOT)) 76 5-[address] [facility] HospitalAlanine Aminotransferase (ALT/SGPT) 2019-12-23 12:18:00* Test Item Value Reference Range Interpretation Comments Alanine Aminotransferase (ALT/SGPT) (test code = 1742-6) 116 0-[address] [facility] HospitalTotal Hkymcnv3361-10-27 12:18:00* Test Item Value Reference Range Interpretation Comments Total Protein (test code = 2885-2) 7.3 6.5-8.[address] [facility] HospitalAlbumin2020-04-06 12:18:00* Test Item Value Reference Range Interpretation Comments Albumin (test code = 1751-7) 4.2 3.5-5.[address] [facility] HospitalGlobulin2020-04-06 12:18:00* Test Item Value Reference Range Interpretation Comments Globulin (test code = 23099-5) 3.1 2.3-3.[address] [facility] HospitalAlbumin/Globulin Sxhaf4468-74-24 12:18:00 * Test Item Value Reference Range Interpretation Comments Albumin/Globulin Ratio (test code = 1759-0) 1.4 0.8-2.[address] [facility] HospitalAlkaline Qxzijkgcqba2148-45-28 12:18:00* Test Item Value Reference Range Interpretation Comments Alkaline Phosphatase (test code = 6768-6) 94 40-[address] [facility] HospitalCreatine Qkzbuz9202-38-27 12:18:00* Test Item Value Reference Range Interpretation Comments Creatine Kinase (test code = 2157-6) 78 29-[address] [facility] HospitalAmylase Upaxw6425-23-05 12:18:00* Test Item Value Reference Range Interpretation Comments Amylase Level (test code = 1798-8) 51 25-[address] [facility] HospitalLipase2020-04-06 12:18:00* Test Item Value Reference Range Interpretation Comments Lipase (test code = 3040-3) 95 8-78 [facility] Vhloa7430-27-00 12:18:00* Test Item Value Reference Range Interpretation Comments Sodium Level (test code = 2951-2) 140 136-[address] [facility] HospitalPotassium Tkvng6996-52-70 12:18:00* Test Item Value Reference Range Interpretation Comments Potassium Level (test code = 2823-3) 3.8 3.5-5.[address] [facility] HospitalChloride Gdhej5494-88-33 12:18:00* Test Item Value Reference Range Interpretation Comments Chloride Level (test code = 2075-0) 103 98-[address] [facility] HospitalCarbon Dioxide Jgemf4155-62-34 12:18:00* Test Item Value Reference Range Interpretation Comments Carbon Dioxide Level (test code = 2028-9) 25 22-[address] [facility] HospitalAnion Zix2032-97-48 12:18:00* Test Item Value Reference Range Interpretation Comments Anion Gap (test code = 97753-0) 15.8 8-[address] [facility] HospitalBlood Urea Tuszlvnp1827-28-86 12:18:00* Test Item Value Reference Range Interpretation Comments Blood Urea Nitrogen (test code = 3094-0) 12 7- [facility] HospitalCreatinine2020-04-06 12:18:00* Test Item Value Reference Range Interpretation Comments Creatinine (test code = 2160-0) 0.94 0.57-1.[address] [facility] HospitalBUN/Creatinine Mbcdw8780-09-17 12:18:00* Test Item Value Reference Range Interpretation Comments BUN/Creatinine Ratio (test code = 3097-3) 13 6- [facility] HospitalEstimat Glomerular Filtration Rate 2019-12-23 12:18:00* Test Item Value Reference Range Interpretation Comments Estimat Glomerular Filtration Rate (test code = 505870525) 60 >60 Ranges were taken from the National Kidney Disease Education Program and the [facility] Foundation literature.Reference ranges:60 or greater: Ndejtm76-50 ( for 3 consecutive months): Chronic kidney disease 15 or less: [address] failureM[address] [facility] HospitalGlucose Vrrxj6636-12-46 12:18:00* Test Item Value Reference Range Interpretation Comments Glucose Level (test code = VFZ0292) 260 74-[address] [facility] HospitalCalcium Nauqo3521-80-05 12:18:00* Test Item Value Reference Range Interpretation Comments Calcium Level (test code = 84076-0) 9.8 8.4-10.[address] [facility] HospitalMagnesium Zxoex2347-36-76 12:18:00* Test Item Value Reference Range Interpretation Comments Magnesium Level (test code = 89385-3) 1.9 1.3-2.[address] [facility] HospitalTotal Ededyctaj4531-57-16 12:18:00* Test Item Value Reference Range Interpretation Comments Total Bilirubin (test code = 1975-2) 0.4 0.2-1.[address] [facility] HospitalAspartate Amino Transf (AST/SGOT) 2019-12-23 12:18:00* Test Item Value Reference Range Interpretation Comments Aspartate Amino Transf (AST/SGOT) (test code = Aspartate Amino Transf (AST/SGOT)) 76 5-[address] [facility] HospitalAlanine Aminotransferase (ALT/SGPT) 2019-12-23 12:18:00* Test Item Value Reference Range Interpretation Comments Alanine Aminotransferase (ALT/SGPT) (test code = 1742-6) 116 0-[address] [facility] HospitalTotal Ytdfrlw5408-48-66 12:18:00* Test Item Value Reference Range Interpretation Comments Total Protein (test code = 2885-2) 7.3 6.5-8.[address] [facility] HospitalAlbumin2020-04-06 12:18:00* Test Item Value Reference Range Interpretation Comments Albumin (test code = 1751-7) 4.2 3.5-5.[address] [facility] HospitalGlobulin2020-04-06 12:18:00* Test Item Value Reference Range Interpretation Comments Globulin (test code = 66844-2) 3.1 2.3-3.[address] [facility] HospitalAlbumin/Globulin Pnpnk8918-47-17 12:18:00 * Test Item Value Reference Range Interpretation Comments Albumin/Globulin Ratio (test code = 1759-0) 1.4 0.8-2.[address] [facility] HospitalAlkaline Qbuvkkocxxt6880-64-73 12:18:00* Test Item Value Reference Range Interpretation Comments Alkaline Phosphatase (test code = 6768-6) 94 40-[address] [facility] HospitalCreatine Eltldf3851-16-44 12:18:00* Test Item Value Reference Range Interpretation Comments Creatine Kinase (test code = 2157-6) 78 29-[address] [facility] HospitalAmylase Cufvf7099-50-46 12:18:00* Test Item Value Reference Range Interpretation Comments Amylase Level (test code = 1798-8) 51 25-[address] [facility] HospitalLipase2020-04-06 12:18:00* Test Item Value Reference Range Interpretation Comments Lipase (test code = 3040-3) 95 8-[address] [facility] HospitalWhite Blood Wfqez6048-01-71 12:03:00* Test Item Value Reference Range Interpretation Comments White Blood Count (test code = 6690-2) 6.34 4.8-10.[address] [facility] HospitalRed Blood Znmwh8197-04-17 12:03:00* Test Item Value Reference Range Interpretation Comments Red Blood Count (test code = 789-8) 5.03 3.6-5.[address] [facility] HospitalHemoglobin2020-04-06 12:03:00* Test Item Value Reference Range Interpretation Comments Hemoglobin (test code = 04347-4) 15.1 12.0-16.[address] [facility] HospitalHematocrit2020-04-06 12:03:00* Test Item Value Reference Range Interpretation Comments Hematocrit (test code = 4544-3) 45.7 34.2-44.[address] [facility] HospitalMean Corpuscular Xwbcmo5649-56-89 12:03:00* Test Item Value Reference Range Interpretation Comments Mean Corpuscular Volume (test code = 787-2) 90.9 81-[address] [facility] HospitalMean Corpuscular Wwrqhoazbp8329-17-46 12:03:00* Test Item Value Reference Range Interpretation Comments Mean Corpuscular Hemoglobin (test code = 785-6) 30.0 28-[address] [facility] HospitalMean Corpuscular Hemoglobin Concent 2019-12-23 12:03:00* Test Item Value Reference Range Interpretation Comments Mean Corpuscular Hemoglobin Concent (test code = 786-4) 33.0 31-[address] [facility] HospitalRed Cell Distribution Ojmqv8572-13-10 12:03:00* Test Item Value Reference Range Interpretation Comments Red Cell Distribution Width (test code = 34006-9) 13.1 11.7 -14.[address] [facility] HospitalPlatelet Wlmbq0906-08-41 12:03:00* Test Item Value Reference Range Interpretation Comments Platelet Count (test code = 777-3) 236 140-[address] [facility] HospitalNeutrophils (%) (Auto)2019-12-23 12:03:00 * Test Item Value Reference Range Interpretation Comments Neutrophils (%) (Auto) (test code = 45625-8) 54.9 38.7-80.[address] [facility] HospitalLymphocytes (%) (Auto)2019-12-23 12:03:00 * Test Item Value Reference Range Interpretation Comments Lymphocytes (%) (Auto) (test code = 736-9) 33.4 18.0-39.[address] [facility] HospitalMonocytes (%) (Auto)2019-12-23 12:03:00* Test Item Value Reference Range Interpretation Comments Monocytes (%) (Auto) (test code = 5905-5) 7.7 4.4-11.[address] [facility] HospitalEosinophils (%) (Auto)2019-12-23 12:03:00 * Test Item Value Reference Range Interpretation Comments Eosinophils (%) (Auto) (test code = 713-8) 2.5 0.0-6.[address] [facility] HospitalBasophils (%) (Auto)2019-12-23 12:03:00* Test Item Value Reference Range Interpretation Comments Basophils (%) (Auto) (test code = 706-2) 0.6 0.0-1.[address] [facility] HospitalIM GRANULOCYTES %2019-12-23 12:03:00* Test Item Value Reference Range Interpretation Comments IM GRANULOCYTES % (test code = IM GRANULOCYTES %) 0.9 0.0- 1.[address] [facility] HospitalNeutrophils # (Auto)2019-12-23 12:03:00* Test Item Value Reference Range Interpretation Comments Neutrophils # (Auto) (test code = 751-8) 3.5 2.1-6.[address] [facility] HospitalLymphocytes # (Auto)2019-12-23 12:03:00* Test Item Value Reference Range Interpretation Comments Lymphocytes # (Auto) (test code = 67514-6) 2.1 1.0-3.[address] [facility] HospitalMonocytes # (Auto)2019-12-23 12:03:00* Test Item Value Reference Range Interpretation Comments Monocytes # (Auto) (test code = 742-7) 0.5 0.2-0.[address] [facility]2019-12-23 12:03:00* Test Item Value Reference Range Interpretation Comments Eosinophils # (Auto) (test code = 711-2) 0.2 0.0-0.[address] [facility] ([facility])2019-12-23 12:03:00* Test Item Value Reference Range Interpretation Comments Basophils # (Auto) (test code = 704-7) 0.0 0.0-0.[address] [facility] Granulocyte (auto 2019-12-23 12:03:00* Test Item Value Reference Range Interpretation Comments Absolute Immature Granulocyte (auto (everett t code = Absolute Immature Granulocyte (auto) 0.06 0-0.[address] [facility] Uwjct3000-56-23 12:03:00* Test Item Value Reference Range Interpretation Comments White Blood Count (test code = 6690-2) 6.34 4.8-10.[address] [facility] Qnfqf0913-31-89 12:03:00* Test Item Value Reference Range Interpretation Comments Red Blood Count (test code = 789-8) 5.03 3.6-5.[address] [facility]oglobin2020-04-[facility] 12:03:00* Test Item Value Reference Range Interpretation Comments Hemoglobin (test code = 43964-0) 15.1 12.0-16.[address] [facility]Hematocrit2020-04-06 12:03:00* Test Item Value Reference Range Interpretation Comments Hematocrit (test code = 4544-3) 45.7 34.2-44.[address] [facility]Mean Corpuscular Odobtv7773-83-35 12:03:00* Test Item Value Reference Range Interpretation Comments Mean Corpuscular Volume (test code = 787-2) 90.9 81-[address] [facility] Corpuscular Miffeveqbh2233-85-79 12:03:00* Test Item Value Reference Range Interpretation Comments Mean Corpuscular Hemoglobin (test code = 785-6) 30.0 28-[address] [facility]Mean [facility] Hemoglobin Concent 2019-12-23 12:03:00* Test Item Value Reference Range Interpretation Comments Mean Corpuscular Hemoglobin Concent (test code = 786-4) 33.0 31-[address] [facility]Red Cell Distribution Cjzzs3529-10-83 12:03:00* Test Item Value Reference Range Interpretation Comments Red Cell Distribution Width (test code = 07860-4) 13.1 11.7 -14.[address] [facility] HospitalPlatelet Kswwn5465-18-91 12:03:00* Test Item Value Reference Range Interpretation Comments Platelet Count (test code = 777-3) 236 140-[address] [facility]Neutrophils (%) (Auto)2019-12-23 12:03:00 * Test Item Value Reference Range Interpretation Comments Neutrophils (%) (Auto) (test code = 51935-8) 54.9 38.7-80.[address] [facility] HospitalLymphocytes (%) (Auto)2019-12-23 12:03:00 * Test Item Value Reference Range Interpretation Comments Lymphocytes (%) (Auto) (test code = 736-9) 33.4 18.0-39.[address] [facility]Monocytes (%) (Auto)2019-12-23 12:03:00* Test Item Value Reference Range Interpretation Comments Monocytes (%) (Auto) (test code = 5905-5) 7.7 4.4-11.[address] [facility]Eosinophils (%) (Auto)2019-12-23 12:03:00 * Test Item Value Reference Range Interpretation Comments Eosinophils (%) (Auto) (test code = 713-8) 2.5 0.0-6.[address] [facility]Basophils (%) (Auto)2019-12-23 12:03:00* Test Item Value Reference Range Interpretation Comments Basophils (%) (Auto) (test code = 706-2) 0.6 0.0-1.[address] [facility] HospitalIM [facility]ANULOCYTES %2019-12-23 12:03:00* Test Item Value Reference Range Interpretation Comments IM GRANULOCYTES % (test code = IM GRANULOCYTES %) 0.9 0.0- [address] [facility]Neutrophils # (Auto)2019-12-23 12:03:00* Test Item Value Reference Range Interpretation Comments Neutrophils # (Auto) (test code = 751-8) 3.5 2.1-6.[address] [facility] HospitalLymphocytes # (Auto)2019-12-23 12:03:00* Test Item Value Reference Range Interpretation Comments Lymphocytes # (Auto) (test code = 52369-4) 2.1 1.0-3.[address] [facility]Monocytes # (Auto)2019-12-23 12:03:00* Test Item Value Reference Range Interpretation Comments Monocytes # (Auto) (test code = 742-7) 0.5 0.2-0.[address] [facility]Eosinophils # (Auto)2019-12-23 12:03:00* Test Item Value Reference Range Interpretation Comments Eosinophils # (Auto) (test code = 711-2) 0.2 0.0-0.[address] [facility]Bas[facility] # (Auto)2019-12-23 12:03:00* Test Item Value Reference Range Interpretation Comments Basophils # (Auto) (test code = 704-7) 0.0 0.0-0.[address] [facility] HospitalAbsolute Immature Granulocyte (auto 2019-12-23 12:03:00* Test Item Value Reference Range Interpretation Comments Absolute Immature Granulocyte (auto (everett t code = Absolute Immature Granulocyte (auto) 0.06 0-0.[address] [facility]
[2020-05-29] MEDS: PANTOPRAZOLE 40 MG 10ML VIAL IV SCH (18:29)
[2020-05-29] MEDS: PIPER-TAZ 3.375 GM 50 ML IV SCH ×2 (19:00→21:18)
[2020-05-29 20:15] VITALS: BP 139/79
[2020-05-29] MEDS ORDERED: DOCUSATE CALCI240 MG PO (20:47)
[2020-05-29] MEDS ORDERED: LEVAQUIN500 MG PO (20:47)
[2020-05-29 20:49] VITALS: BP 163/72
[2020-05-29] MEDS: MAGNESIUM HYDROXIDE 30 ML UDC PO SCH (21:00)
[2020-05-29] MEDS: SODIUM CHLORIDE 0.9% 1000ML 1,000 ML IV SCH (22:40)
[2020-05-30] VITALS (8 sets, daily range): BP systolic 121–146; BP diastolic 58–78
[2020-05-30] MEDS: PIPER-TAZ 3.375 GM 50 ML IV SCH ×5 (00:04→23:15)
[2020-05-30] MEDS: ONDANSETRON HCL INJ 2MG/ML 2ML 2 MG/ML VIAL IV PRN ×3 (02:25→19:30)
[2020-05-30] MEDS: HYDROMORPHONE 1MG/1ML INJ IV PRN ×4 (02:25→19:30)
[2020-05-30] MEDS: SODIUM CHLORIDE 0.9% 1000ML 1,000 ML IV SCH ×3 (05:49→19:48)
[2020-05-30 06:04] LABS: BASOPHILS % 0.5 % (0.0-1.0); EOSINOPHILS # (AUTO) 0.3 (0.0-0.4); EOSINOPHILS % 4.4 % (0.0-6.0); HEMATOCRIT 41.8 % (34.2-44.1); LYMPHOCYTES # (AUTO) 2.2 (1.0-3.2); MEAN CORPUSCULAR HEMOGLOBIN 28.5 pg (28-32); MEAN CORPUSCULAR HGB CONC 31.1 g/dL (31-35); MEAN CORPUSCULAR VOLUME 91.7 fL (81-99); MONOCYTES # (AUTO) 0.5 (0.2-0.8); MONOCYTES % 8.3 % (4.4-11.3); NEUTROPHILS # (AUTO) 2.8 (2.1-6.9); PLATELET COUNT 243 x10e3/uL (140-360); RED BLOOD COUNT 4.56 x10e6/uL (3.6-5.1); RED CELL DISTRIBUTION WIDTH 12.9 % (11.7-14.4)
[2020-05-30 06:38] LABS: BLOOD UREA NITROGEN 11 mg/dL (7-26); BUN/CREATININE RATIO 14 (6-25); CALCIUM 8.7 mg/dL (8.4-10.2); CARBON DIOXIDE 22 mmol/L (22-29); CHLORIDE 106 mmol/L (98-107); CREATININE, SERUM 0.81 mg/dL (0.57-1.11); EST GLOMERULAR FILTRATION RATE > 60 ML/MIN (60-); GLUCOSE 184 mg/dL (74-118); SODIUM 140 mmol/L (136-145)
[2020-05-30] MEDS: PANTOPRAZOLE 40 MG 10ML VIAL IV SCH (16:51)
[2020-05-30] MEDS: MAGNESIUM HYDROXIDE 30 ML UDC PO SCH (22:10)
[2020-05-31] VITALS (7 sets, daily range): BP systolic 111–131; BP diastolic 44–63
[2020-05-31] MEDS: PIPER-TAZ 3.375 GM 50 ML IV SCH ×4 (05:06→23:41)
[2020-05-31] MEDS: SODIUM CHLORIDE 0.9% 1000ML 1,000 ML IV SCH ×3 (08:54→19:56)
[2020-05-31] MEDS: HYDROCODONE/APAP 7.5MG-325MG 1 EA TAB PO PRN (08:58)
[2020-05-31] MEDS: PANTOPRAZOLE 40 MG 10ML VIAL IV SCH (17:36)
[2020-05-31] MEDS: ONDANSETRON HCL INJ 2MG/ML 2ML 2 MG/ML VIAL IV PRN (19:56)
[2020-05-31] MEDS: MAGNESIUM HYDROXIDE 30 ML UDC PO SCH (19:56)
[2020-05-31] MEDS: HYDROMORPHONE 1MG/1ML INJ IV PRN (19:56)
[2020-06-01] VITALS (8 sets, daily range): BP systolic 123–152; BP diastolic 51–77
[2020-06-01] MEDS: PIPER-TAZ 3.375 GM 50 ML IV SCH ×3 (05:21→18:02)
[2020-06-01] MEDS: ONDANSETRON HCL INJ 2MG/ML 2ML 2 MG/ML VIAL IV PRN (05:45)
[2020-06-01] MEDS: HYDROMORPHONE 1MG/1ML INJ IV PRN (05:45)
--- NOTE | 2020-06-01 07:00 | NUR ---
BEDSIDE SHIFT REPORT RECEIVED FROM LABORATORY MACHINIST RN. PT DENIES NEEDS AT THIS TIME.
--- NOTE | 2020-06-01 09:15 | NUR ---
PT TO OR.
[2020-06-01] MEDS ORDERED: LIDOCAINE HCL 2% 30 ML TUBE ONE (10:14)
[2020-06-01] MEDS: SODIUM CHLORIDE 0.9% 1000ML 1,000 ML IV SCH (10:15)
--- NOTE | 2020-06-01 10:48 | Operative Report ---
DATE OF PROCEDURE: 06/01/2020 SURGEON: Scar Manzano MD PREOPERATIVE DIAGNOSIS: Severe anorectal pain. POSTOPERATIVE DIAGNOSIS: Severe anorectal pain. OPERATION PERFORMED: Exam under anesthesia with Exparel anal block and Botox injection of the left rectal sling. ANESTHESIA: General. COMPLICATIONS: None. ESTIMATED BLOOD LOSS: Minimal. DESCRIPTION OF PROCEDURE: With the patient lying in bed in the lithotomy position under good general anesthesia. Examination at this point revealed the patient had a previous hemorrhoidectomy roughly about three weeks before, the hemorrhoidectomy appeared to heal well. All of the sutures had dissolved anteriorly. There was a small typical healing of a hemorrhoidectomy with some partial closure of the skin. There was no sign of any infection. There was no sign of any fissure. There was no sign of any perirectal abscess. There was no purulent drainage anywhere. Examination of the rectal sling revealed some tightness on the left side, which was consistent with the fact that the patient had more pain on that side as well. We decided to go ahead and do an Exparel block, which was done in a circumferential fashion using all 20 mL of the Exparel. After this was done, 100 units of Botox was then used to inject the left rectal sling. This gave us a satisfactory block. The dressing was applied using some Gelfoam impregnated with Xylocaine and the patient returned to the recovery room in stable condition. Scar Manzano MD JLKaushik/MODL /[id number]
[2020-06-01] MEDS ORDERED: HYDROMORPHONE 1MG/1ML INJ ONE (11:01)
[2020-06-01] MEDS ORDERED: HYDRALAZINE HCL 20 MG/ML VIAL ONE (11:12)
[2020-06-01] MEDS ORDERED: LIDOCAINE HCL 2% LOCAL INJ 5 ML SDV VIAL INJ ONE (13:39)
[2020-06-01] MEDS ORDERED: ONDANSETRON HCL INJ 2MG/ML 2ML 2 MG/ML VIAL ONE (13:39)
[2020-06-01] MEDS ORDERED: SEVOFLURANE INHAL SOLN 250 ML PEN BTL ONE (13:39)
[2020-06-01] MEDS ORDERED: DEXAMETHASONE SOD PHOS INJ 4 MG/ML VIAL ONE (13:39)
[2020-06-01] MEDS ORDERED: PROPOFOL IV EMULSION 10 MG/ML 20 ML VIAL ONE (13:39)
[2020-06-01] MEDS ORDERED: FENTANYL CITRATE/PF 100MCG/2 ML INJ ONE (13:46)
[2020-06-01] MEDS ORDERED: MIDAZOLAM HCL 2 MG/2 ML VIAL ONE (13:46)
[2020-06-01] MEDS ORDERED: BUPIVACAINE LIPOSOME/PF 266 MG/20 ML IJ ONE (15:21)
[2020-06-01] MEDS ORDERED: BOTULINUM TOXIN TYPE A 100 UNIT VIAL IM ONE (15:21)
[2020-06-01] MEDS: PANTOPRAZOLE 40 MG 10ML VIAL IV SCH (17:36)
--- NOTE | 2020-06-01 19:30 | NUR ---
Received pt in bed awake, a/o x 3, No c/o at this time, bed in low and locked position, call light and personal items within reach. IVF infusing w/o diff. No s/sx of acute distress noted, bedside report completed will cont to mon
[2020-06-02] MEDS: PIPER-TAZ 3.375 GM 50 ML IV SCH ×3 (00:31→12:00)
[2020-06-02 01:44] VITALS: BP 110/50
[2020-06-02] MEDS: SODIUM CHLORIDE 0.9% 1000ML 1,000 ML IV SCH (06:15)
[2020-06-02 06:59] VITALS: BP 153/69
--- NOTE | 2020-06-02 07:00 | NUR ---
BEDSIDE SHIFT REPORT RECEIVED FROM DISH MAKER RN. PT DENIES NEEDS AT THIS TIME.
[2020-06-02 08:03] VITALS: BP 132/70
[2020-06-02 09:00] VITALS: BP 132/70
[2020-06-02] MEDS: HYDROCODONE/APAP 7.5MG-325MG 1 EA TAB PO PRN (10:36)
[2020-06-02 11:47] VITALS: BP 137/63
[2020-06-02] MEDS ORDERED: NORCO 7.5-3251 EACH PO ×2 (15:16→15:17)
== END 2020-06-02 15:59 | disposition home or self-care (01) | DRG 395 ==
LOC: ER 14:00 → ERHOLD 16:12 → MED/SURG 19:06
PROVIDERS: ADMIT Surgery; ATTEND Surgery
PROC: 3E0H7GC Introduction of Other Therapeutic Substance into Lower GI, Via Natural or Artificial Opening (ICD-10-PCS; principal; 2020-05-29)
PROC: 3E023BZ Introduction of Anesthetic Agent into Muscle, Percutaneous Approach (ICD-10-PCS; 2020-05-29)
DX: K62.89 Other specified diseases of anus and rectum (principal); G47.33 Obstructive sleep apnea (adult) (pediatric); Z11.59 Encounter for screening for other viral diseases; R73.03 Prediabetes
CPT/HCPCS: 36415; 80048; 80053; 82948; 85025; 86850; 86900; 96361; 99284; J0360; J0587; J1100; J1170; J2001; J2250; J2270; J2405; J2543; J3010; J7030; U0002

== ENCOUNTER 2021-03-03 10:55 | Emergency (ER) | payer MEDICARE ==
[~2021-03-03] VITALS: Ht 154.9 cm; Wt 66.7 kg
[~2021-03-03 10:55] MED LIST changes: +DOCUSATE CALCI240 MG PO; +LEVAQUIN500 MG PO; +NORCO 7.5-3251 EACH PO
[2021-03-03] MEDS ORDERED: KETOROLAC TROMETHAMINE 30 MG/ML VIAL IM STA (11:08)
[2021-03-03 12:54] VITALS: BP 130/53
== END 2021-03-03 12:56 | disposition home or self-care (01) ==
LOC: ER 11:08
DX: M25.522 Pain in left elbow (principal); T80.1XXA Vascular complications following infusion, transfusion and therapeutic injection, initial encounter; I82.612 Acute embolism and thrombosis of superficial veins of left upper extremity; E78.5 Hyperlipidemia, unspecified; I25.2 Old myocardial infarction; Z95.5 Presence of coronary angioplasty implant and graft
CPT/HCPCS: 93971; 99284; J1885

== ENCOUNTER 2022-01-24 05:36 | Inpatient (IN) | payer MEDICARE ==
[~2022-01-24] VITALS: Ht 154.9 cm; Wt 65.8 kg
[2022-01-24] VITALS (24 sets, daily range): BP systolic 112–169; BP diastolic 61–82
[2022-01-24 06:00] LABS: BASOPHILS # (AUTO) 0.1 (0.0-0.1); BASOPHILS % 1.1 % (0.0-1.0); EOSINOPHILS # (AUTO) 0.3 (0.0-0.4); EOSINOPHILS % 3.8 % (0.0-6.0); HEMATOCRIT 46.3 % (34.2-44.1); HEMOGLOBIN 14.2 g/dL (12.0-16.0); LYMPHOCYTES # (AUTO) 2.9 (1.0-3.2); LYMPHOCYTES % 43.4 % (18.0-39.1); MEAN CORPUSCULAR HEMOGLOBIN 28.7 pg (28-32); MEAN CORPUSCULAR HGB CONC 30.7 g/dL (31-35); MEAN CORPUSCULAR VOLUME 93.7 fL (81-99); MONOCYTES # (AUTO) 0.6 (0.2-0.8); MONOCYTES % 9.7 % (4.4-11.3); NEUTROPHILS # (AUTO) 2.7 (2.1-6.9); NEUTROPHILS % 41.5 % (38.7-80.0); PLATELET COUNT 235 x10e3/uL (140-360); RED BLOOD COUNT 4.94 x10e6/uL (3.6-5.1); RED CELL DISTRIBUTION WIDTH 13.1 % (11.7-14.4)
[2022-01-24 06:11] LABS: ALBUMIN 3.7 g/dL (3.5-5.0); ALBUMIN/GLOBULIN RATIO 1.1 (0.8-2.0); ANION GAP 11.9 mmol/L (8-16); CREATININE, SERUM 0.94 mg/dL (0.57-1.11); POTASSIUM 3.9 mmol/L (3.5-5.1)
[2022-01-24] MEDS ORDERED: FENTANYL CITRATE/PF 100MCG/2 ML INJ IV PRN (06:15)
[2022-01-24] MEDS ORDERED: ONDANSETRON HCL INJ 2MG/ML 2ML 2 MG/ML VIAL IV PRN (08:00)
[2022-01-24] MEDS ORDERED: HYDROCODONE/APAP 7.5MG-325MG 1 EA TAB PO PRN (08:30)
[2022-01-24] MEDS ORDERED: CLINDAMYCIN 600MG / 50ML 50 ML IV PRN (09:00)
[2022-01-24] MEDS ORDERED: DOCUSATE CALCIUM PO SCH (09:00)
[2022-01-24] MEDS ORDERED: SODIUM CHLORIDE FLUSH 10 ML SYR INJ PRN (09:00)
[2022-01-24] MEDS: ASPIRIN 325 MG TAB PO SCH (09:00)
[2022-01-24] MEDS ORDERED: ATORVASTATIN CA80 MG PO (09:27)
[2022-01-24] MEDS ORDERED: HEPARIN SOD/SOD CHLORIDE 2,000 ML ONE (09:27)
[2022-01-24] MEDS ORDERED: METOPROLOL SUCC50 MG PO (09:27)
[2022-01-24] MEDS ORDERED: GLIMEPIRIDE2 MG PO (09:27)
[2022-01-24] MEDS ORDERED: JARDIANCE25 MG PO (09:27)
[2022-01-24] MEDS ORDERED: OTEZLA30 MG PO (09:32)
[2022-01-24] MEDS ORDERED: ASPIRIN CHEW81 MG PO (09:33)
[2022-01-24] MEDS: SODIUM CHLORIDE 0.9% 1000ML 1,000 ML IV SCH (09:45)
[2022-01-24] MEDS ORDERED: LIDOCAINE HCL 4% 50 ML BTL TOP SCH (10:00)
[2022-01-24] MEDS ORDERED: FENTANYL CITRATE/PF 100MCG/2 ML INJ ONE (10:03)
[2022-01-24] MEDS ORDERED: MIDAZOLAM HCL 2 MG/2 ML VIAL ONE ×2 (10:03→10:54)
[2022-01-24] MEDS ORDERED: SODIUM CHLORIDE 0.9% 1000ML 0 ML ONE (10:03)
[2022-01-24] MEDS: CLOPIDOGREL BISULFATE 75 MG TAB PO SCH (10:06)
[2022-01-24] MEDS ORDERED: SODIUM CHLORIDE 0.9% 500ML 500 ML IV ONE (10:15)
[2022-01-24] MEDS ORDERED: NITROGLYCERIN 0.4 MG SUBL ONE (10:53)
[2022-01-24] MEDS ORDERED: CLOPIDOGREL BISULFATE 75 MG TAB ONE (10:58)
[2022-01-24] MEDS ORDERED: TRAMADOL HCL 50 MG TAB PO SCH (12:00)
[2022-01-24] MEDS: NITROGLYCERIN 0.4 MG SUBL SL PRN ×2 (12:08→12:12)
[2022-01-24] MEDS: Morphine 2mg Syringe 2 MG/ML SYR IV PRN ×2 (12:29→19:20)
[2022-01-24] MEDS ORDERED: Morphine 4mg Syringe 4 MG/ML INJ ONE (12:37)
[2022-01-24] MEDS: DOCUSATE SODIUM 100 MG CAP PO SCH (17:57)
[2022-01-24] MEDS: METOPROLOL SUCCINATE 25 MG TAB XL PO SCH (17:57)
[2022-01-24] MEDS ORDERED: ATORVASTATIN 20 MG TAB PO SCH (21:00)
[2022-01-25] VITALS (7 sets, daily range): BP systolic 116–138; BP diastolic 59–98
[2022-01-25] MEDS: SODIUM CHLORIDE 0.9% 1000ML 1,000 ML IV SCH (01:00)
[2022-01-25 05:46] LABS: BASOPHILS % 0.4 % (0.0-1.0); EOSINOPHILS # (AUTO) 0.2 (0.0-0.4); EOSINOPHILS % 3.1 % (0.0-6.0); HEMATOCRIT 42.2 % (34.2-44.1); LYMPHOCYTES # (AUTO) 2.1 (1.0-3.2); LYMPHOCYTES % 31.4 % (18.0-39.1); MEAN CORPUSCULAR HEMOGLOBIN 28.4 pg (28-32); MEAN CORPUSCULAR HGB CONC 30.8 g/dL (31-35); MEAN CORPUSCULAR VOLUME 92.3 fL (81-99); MONOCYTES # (AUTO) 0.5 (0.2-0.8); MONOCYTES % 7.8 % (4.4-11.3); NEUTROPHILS # (AUTO) 3.8 (2.1-6.9); PLATELET COUNT 187 x10e3/uL (140-360); RED BLOOD COUNT 4.57 x10e6/uL (3.6-5.1); RED CELL DISTRIBUTION WIDTH 13.1 % (11.7-14.4)
[2022-01-25 06:11] LABS: ANION GAP 8.3 mmol/L (8-16); CALCIUM 7.7 mg/dL (8.4-10.2); CREATININE, SERUM 0.75 mg/dL (0.57-1.11); POTASSIUM 3.3 mmol/L (3.5-5.1)
[2022-01-25] MEDS ORDERED: POTASSIUM CHLORIDE 20 MEQ TAB CR PO ONE ×2 (08:15→09:00)
[2022-01-25] MEDS: METOPROLOL SUCCINATE 25 MG TAB XL PO SCH ×2 (09:28→16:51)
[2022-01-25] MEDS: ISOSORBIDE MONONITRATE 30 MG TAB CR PO SCH (09:29)
[2022-01-25] MEDS: CLOPIDOGREL BISULFATE 75 MG TAB PO SCH (09:29)
[2022-01-25] MEDS: ASPIRIN 325 MG TAB PO SCH (09:29)
[2022-01-25] MEDS: DOCUSATE SODIUM 100 MG CAP PO SCH ×2 (09:29→16:51)
[2022-01-25] MEDS ORDERED: FUROSEMIDE INJ 10 MG/ML 4 ML VIAL IV ONE (09:30)
[2022-01-25] MEDS ORDERED: MOMETASONE FUROATE 220 MCG IH PRN (11:15)
[2022-01-25] MEDS ORDERED: FLUTICASONE PROPIONATE NASAL SPRAY NS PRN (11:45)
[2022-01-25] MEDS: NITROGLYCERIN 0.4 MG SUBL SL PRN ×2 (12:32→12:37)
[2022-01-25 15:51] LABS: ANION GAP 8.9 mmol/L (8-16); CALCIUM 8.7 mg/dL (8.4-10.2); CREATININE, SERUM 0.86 mg/dL (0.57-1.11); POTASSIUM 3.9 mmol/L (3.5-5.1)
[2022-01-25] MEDS ORDERED: ATORVASTATIN 40 MG TAB PO SCH (21:00)
[2022-01-26] VITALS: BP 121/57
[2022-01-26 04:00] VITALS: BP 126/67
[2022-01-26 07:33] VITALS: BP 119/65
[2022-01-26 08:37] VITALS: BP 119/65
[2022-01-26] MEDS: ASPIRIN 325 MG TAB PO SCH (09:21)
[2022-01-26] MEDS: CLOPIDOGREL BISULFATE 75 MG TAB PO SCH (09:22)
[2022-01-26] MEDS: DOCUSATE SODIUM 100 MG CAP PO SCH (09:22)
[2022-01-26] MEDS: ISOSORBIDE MONONITRATE 30 MG TAB CR PO SCH (09:23)
[2022-01-26] MEDS: METOPROLOL SUCCINATE 25 MG TAB XL PO SCH (09:23)
== END 2022-01-26 10:25 | disposition home or self-care (01) | DRG 247 ==
LOC: ER 05:50 → ERHOLD 07:49 → MED/SURG 09:05 → OBSVTOIN 01-25 08:49
PROVIDERS: ADMIT Internal Medicine; ATTEND Internal Medicine
PROC: 027034Z Dilation of Coronary Artery, One Artery with Drug-eluting Intraluminal Device, Percutaneous Approach (ICD-10-PCS; principal; 2022-01-24)
PROC: 4A023N7 Measurement of Cardiac Sampling and Pressure, Left Heart, Percutaneous Approach (ICD-10-PCS; 2022-01-24)
PROC: B2111ZZ Fluoroscopy of Multiple Coronary Arteries using Low Osmolar Contrast (ICD-10-PCS; 2022-01-24)
PROC: B2151ZZ Fluoroscopy of Left Heart using Low Osmolar Contrast (ICD-10-PCS; 2022-01-24)
DX: I25.110 Atherosclerotic heart disease of native coronary artery with unstable angina pectoris (principal); I10 Essential (primary) hypertension; E11.9 Type 2 diabetes mellitus without complications; Z20.822 Contact with and (suspected) exposure to COVID-19; E78.5 Hyperlipidemia, unspecified; Z95.5 Presence of coronary angioplasty implant and graft; Z79.4 Long term (current) use of insulin; Z79.899 Other long term (current) drug therapy; I25.2 Old myocardial infarction
CPT/HCPCS: 36415; 71045; 80048; 80053; 82948; 83735; 84484; 85025; 92928; 93005; 93306; 93458; 94799; 99152; 99153; 99284; C1725; C1769; C1874; C1887; G0378; J1940; J2250; J2270; J3010; J7030; U0002

== ENCOUNTER 2022-01-31 07:44 | Observation (INO) | payer MEDICARE ==
[2022-01-28 15:24] LABS: BASOPHILS % 0.5 % (0.0-1.0); EOSINOPHILS # (AUTO) 0.2 (0.0-0.4); EOSINOPHILS % 2.9 % (0.0-6.0); HEMATOCRIT 44.2 % (34.2-44.1); HEMOGLOBIN 13.6 g/dL (12.0-16.0); LYMPHOCYTES # (AUTO) 2.6 (1.0-3.2); LYMPHOCYTES % 34.3 % (18.0-39.1); MEAN CORPUSCULAR HEMOGLOBIN 28.7 pg (28-32); MEAN CORPUSCULAR HGB CONC 30.8 g/dL (31-35); MEAN CORPUSCULAR VOLUME 93.2 fL (81-99); MONOCYTES # (AUTO) 0.7 (0.2-0.8); MONOCYTES % 9.4 % (4.4-11.3); NEUTROPHILS % 52.5 % (38.7-80.0); PLATELET COUNT 243 x10e3/uL (140-360); RED BLOOD COUNT 4.74 x10e6/uL (3.6-5.1); RED CELL DISTRIBUTION WIDTH 13.2 % (11.7-14.4)
[2022-01-28 15:35] LABS: INR 1.08
[2022-01-28 15:36] LABS: PARTIAL THROMBOPLASTIN TIME 24.1 seconds (23.8-35.5)
[2022-01-28 15:43] LABS: ALBUMIN 3.6 g/dL (3.5-5.0); ANION GAP 14.6 mmol/L (8-16); CALCIUM 9.8 mg/dL (8.4-10.2); CREATININE, SERUM 0.8 mg/dL (0.57-1.11); POTASSIUM 4.6 mmol/L (3.5-5.1)
[2022-01-31] VITALS (27 sets, daily range): BP systolic 103–151; BP diastolic 65–108
[~2022-01-31] VITALS: Ht 154.9 cm; Wt 65.8 kg
[~2022-01-31 07:44] MED LIST changes: +ASPIRIN CHEW81 MG PO; +ATORVASTATIN CA80 MG PO; +GLIMEPIRIDE2 MG PO; +HEPARIN SOD (PORCINE) 1000 UNIT/ML 30ML ONE; +HEPARIN SOD/SOD CHLORIDE 2,000 ML ONE; +IOPAMIDOL 370 MG/ML 100 ML INFUS..BTL INJ ONE; +JARDIANCE25 MG PO; +LIDOCAINE HCL 2% LOCAL 20 ML VIAL ONE; +METOPROLOL SUCC50 MG PO; +NITROGLYCERIN/D5W 200 MCG/ML 250 ML ONE; +OTEZLA30 MG PO; +SODIUM CHLORIDE 0.9% 1000ML 1,000 ML ONE; +VERAPAMIL HCL 2.5 MG/ML 2 ML VIAL ONE
[2022-01-31] MEDS ORDERED: ISOSORBIDE MONO30 MG PO (07:45)
[2022-01-31] MEDS ORDERED: PLAVIX75 MG PO (07:45)
[2022-01-31] MEDS ORDERED: ASPIRIN 81 MG CHEW TAB ONE (08:04)
[2022-01-31] MEDS ORDERED: BIVALRIUDIN 250 MG/VIAL VIAL IV ONE (08:21)
[2022-01-31] MEDS ORDERED: MIDAZOLAM HCL 2 MG/2 ML VIAL ONE (12:11)
[2022-01-31] MEDS ORDERED: FENTANYL CITRATE/PF 100MCG/2 ML INJ ONE (12:12)
[2022-01-31] MEDS ORDERED: NITROGLYCERIN 0.4 MG SUBL ONE ×2 (12:22→15:21)
[2022-01-31] MEDS ORDERED: CLOPIDOGREL BISULFATE 75 MG TAB ONE (12:49)
[2022-01-31] MEDS ORDERED: MAGNESIUM/ALUMINUM/SIMETHICONE 30 ML UDC PO ONE (15:15)
[2022-01-31] MEDS ORDERED: NITROGLYCERIN 0.4 MG SUBL SL PRN (15:15)
[2022-01-31] MEDS ORDERED: TRAMADOL HCL 50 MG TAB PO ONE (16:30)
[2022-01-31] MEDS ORDERED: DIPHENHYDRAMINE HCL 25 MG CAP PO PRN (22:15)
[2022-01-31] MEDS ORDERED: TRAMADOL HCL 50 MG TAB PO PRN (22:15)
[2022-01-31] MEDS: MELATONIN 5 MG TABLET PO PRN (22:32)
[2022-02-01] VITALS (7 sets, daily range): BP systolic 106–115; BP diastolic 47–63
[2022-02-01] MEDS ORDERED: Morphine 2mg Syringe 2 MG/ML SYR IV PRN (09:15)
[2022-02-01] MEDS: NON-FORMULARY MEDICATION (Apremilast (Otezla) 30 MG) PO SCH ×2 (09:15→21:15)
[2022-02-01] MEDS: GLIMEPIRIDE 2 MG TAB PO SCH (09:15)
[2022-02-01] MEDS ORDERED: NON-FORMULARY MEDICATION (Empagliflozin (Jardiance) 25 MG) PO SCH (09:15)
[2022-02-01] MEDS ORDERED: DONNATAL/LIDOCAINE/MAALOX 30 ML SUSP PO ONE (09:30)
[2022-02-01] MEDS ORDERED: TRAMADOL HCL 50 MG TAB PO PRN (09:45)
[2022-02-01] MEDS: METOPROLOL SUCCINATE 50 MG TAB XL PO SCH (09:45)
[2022-02-01] MEDS: CLOPIDOGREL BISULFATE 75 MG TAB PO SCH (09:45)
[2022-02-01] MEDS ORDERED: ISOSORBIDE MONONITRATE 30 MG TAB CR PO SCH (09:45)
[2022-02-01] MEDS: ATORVASTATIN 40 MG TAB PO SCH (09:45)
[2022-02-01] MEDS: ASPIRIN 81 MG CHEW TAB PO SCH (11:43)
[2022-02-01] MEDS: MELATONIN 5 MG TABLET PO PRN (21:17)
[2022-02-02 00:02] VITALS: BP 95/47
[2022-02-02 04:00] VITALS: BP 153/79
[2022-02-02] MEDS: GLIMEPIRIDE 2 MG TAB PO SCH (08:38)
[2022-02-02] MEDS: ASPIRIN 81 MG CHEW TAB PO SCH (08:38)
[2022-02-02] MEDS: METOPROLOL SUCCINATE 50 MG TAB XL PO SCH (08:39)
[2022-02-02] MEDS: CLOPIDOGREL BISULFATE 75 MG TAB PO SCH (08:39)
[2022-02-02] MEDS: ATORVASTATIN 40 MG TAB PO SCH (08:39)
[2022-02-02 08:40] VITALS: BP 104/69
[2022-02-02] MEDS: NON-FORMULARY MEDICATION (Apremilast (Otezla) 30 MG) PO SCH (08:40)
[2022-02-02 09:16] VITALS: BP 147/79
[2022-02-02 12:08] VITALS: BP 145/63
[2022-02-02] MEDS ORDERED: PANTOPRAZOLE SOD 40 MG TABEC PO SCH (16:30)
== END 2022-02-02 12:08 | disposition home or self-care (01) ==
LOC: CATH LAB 07:44 → CATH LAB V 18:04 → MED/SURG 18:38
PROVIDERS: ADMIT Internal Medicine Cardiovascular Disease; ATTEND Internal Medicine Cardiovascular Disease
DX: I25.110 Atherosclerotic heart disease of native coronary artery with unstable angina pectoris (principal); I10 Essential (primary) hypertension; E11.42 Type 2 diabetes mellitus with diabetic polyneuropathy; E66.9 Obesity, unspecified; E78.5 Hyperlipidemia, unspecified; Z01.812 Encounter for preprocedural laboratory examination; Z20.822 Contact with and (suspected) exposure to COVID-19; Z68.27 Body mass index [BMI] 27.0-27.9, adult; Z79.82 Long term (current) use of aspirin; Z79.84 Long term (current) use of oral hypoglycemic drugs
CPT/HCPCS: 36415; 71250; 74176; 76700; 76937; 80053; 80061; 85025; 85610; 85730; 93005 ×2; C1725; C1769; C1874; C1894; C9113 ×2; C9600; G0378 ×3; J1644; J2001; J2250; J3010; J7030; Q9967; U0002; 92928; 99152; 99153; J0583

== ENCOUNTER 2022-04-03 09:16 | Emergency (ER) | payer MEDICARE, OTHER ==
[~2022-04-03] VITALS: Ht 307.3 cm; Wt 65.8 kg
[~2022-04-03 09:16] MED LIST changes: -HEPARIN SOD (PORCINE) 1000 UNIT/ML 30ML ONE; -HEPARIN SOD/SOD CHLORIDE 2,000 ML ONE; -IOPAMIDOL 370 MG/ML 100 ML INFUS..BTL INJ ONE; +ISOSORBIDE MONO30 MG PO; -LIDOCAINE HCL 2% LOCAL 20 ML VIAL ONE; -NITROGLYCERIN/D5W 200 MCG/ML 250 ML ONE; +PLAVIX75 MG PO; -SODIUM CHLORIDE 0.9% 1000ML 1,000 ML ONE; -VERAPAMIL HCL 2.5 MG/ML 2 ML VIAL ONE
[2022-04-03] MEDS ORDERED: NAPROXEN250 MG PO (11:13)
== END 2022-04-03 11:19 | disposition home or self-care (01) ==
LOC: ER 09:19
DX: M25.561 Pain in right knee (principal); R23.3 Spontaneous ecchymoses; W18.49XA Other slipping, tripping and stumbling without falling, initial encounter; Y92.89 Other specified places as the place of occurrence of the external cause; I10 Essential (primary) hypertension; E11.9 Type 2 diabetes mellitus without complications; E78.5 Hyperlipidemia, unspecified; I25.10 Atherosclerotic heart disease of native coronary artery without angina pectoris; Z95.5 Presence of coronary angioplasty implant and graft
CPT/HCPCS: 99284

== ENCOUNTER 2022-04-11 17:46 | Emergency (ER) | payer MEDICARE ==
[~2022-04-11] VITALS: Ht 154.9 cm; Wt 65.8 kg
[~2022-04-11 17:46] MED LIST changes: +NAPROXEN250 MG PO
[2022-04-11] MEDS ORDERED: KETOROLAC TROMETHAMINE 60 MG/2 ML VIAL IM ONE (18:45)
[2022-04-11] MEDS ORDERED: ONDANSETRON HCL INJ 2MG/ML 2ML 2 MG/ML VIAL IV STA (18:55)
[2022-04-11] MEDS ORDERED: Morphine 4mg INJECTION 4 MG/ML INJ IV ONE (19:00)
[2022-04-11] MEDS ORDERED: ACETAMINOPHEN-1 EAC4 PO (19:34)
== END 2022-04-11 19:45 | disposition home or self-care (01) ==
LOC: ER 17:58
DX: M79.604 Pain in right leg (principal); I10 Essential (primary) hypertension; E11.9 Type 2 diabetes mellitus without complications; E78.5 Hyperlipidemia, unspecified; I25.10 Atherosclerotic heart disease of native coronary artery without angina pectoris; L40.9 Psoriasis, unspecified
CPT/HCPCS: 73590; 93971; 99283; J1885; J2270; J2405

== ENCOUNTER → 2022-10-11 | Day surgery (SDC) | payer MEDICARE ==
[~2022-10-11] MED LIST changes: +ACETAMINOPHEN-1 EAC4 PO; +B COMPLEX1 EACH PO; +BIOTIN PLUS 5,1 EACH PO; +BUPIVACAINE HCL 0.5% INJ 30 ML VIAL INJ ONE; +CANDICIDAL CAP1 EACH PO; +COQ-10100 MG PO; +FENTANYL CITRATE/PF 100MCG/2 ML INJ ONE; +FEROSUL325 MG PO; +FISH OIL 1,001000 M1 PO; +GARLIC1000 MG PO; +GLYCOPYRROLATE INJ 0.2 MG/ML VIAL ONE; +HYDROMORPHONE 1MG/1ML INJ ONE; +LIDOCAINE HCL 2% LOCAL INJ 5 ML SDV VIAL INJ ONE; +MIDAZOLAM HCL 2 MG/2 ML VIAL ONE; +NEOSTIGMINE 1 MG/ML 10ML VIAL ONE; +ONDANSETRON HCL INJ 2MG/ML 2ML 2 MG/ML VIAL ONE; +OZEMPIC0.25 MG/0. SC; +POTASSIUM CITR10 MEQ PO; +POVIDONE IODINE 0.05% 0.05 % ML PO ONE; +PROBIOTIC & AC1 EACH PO; +PROPOFOL IV EMULSION 10 MG/ML 20 ML VIAL ONE; +ROCURONIUM BROMIDE 10 MG/ML 5ML VIAL IV ONE; +SEVOFLURANE INHAL SOLN 250 ML PEN BTL ONE; +TREMFYA100 MG/11 PO; +VITAMIN D3250 MCG PO; +VITAMIN E400 UNI1 PO; +ZINC50 M2 PO; +[UNRECOGNIZED DRUG - OTHER] PO
[2022-10-11 13:30] VITALS: BP 167/84
== END | disposition home or self-care (01) ==
LOC: OR 09:52
PROVIDERS: ATTEND Specialist
DX: M75.121 Complete rotator cuff tear or rupture of right shoulder, not specified as traumatic (principal); M75.21 Bicipital tendinitis, right shoulder; G47.33 Obstructive sleep apnea (adult) (pediatric); I25.2 Old myocardial infarction; E11.9 Type 2 diabetes mellitus without complications; Z79.02 Long term (current) use of antithrombotics/antiplatelets; Z79.82 Long term (current) use of aspirin; Z79.899 Other long term (current) drug therapy; Z79.84 Long term (current) use of oral hypoglycemic drugs; Z95.5 Presence of coronary angioplasty implant and graft; Z86.19 Personal history of other infectious and parasitic diseases
CPT/HCPCS: 29827; 36415; 82948; C1713 ×2; J0690; J1170; J2001; J2250; J2405; J2704; J2710; J3010

== ENCOUNTER 2022-10-16 15:53 | Inpatient (IN) | payer MEDICARE ==
[~2022-10-16] VITALS: Ht 154.9 cm; Wt 65.8 kg
[~2022-10-16 15:53] MED LIST changes: -BUPIVACAINE HCL 0.5% INJ 30 ML VIAL INJ ONE; -FENTANYL CITRATE/PF 100MCG/2 ML INJ ONE; -GLYCOPYRROLATE INJ 0.2 MG/ML VIAL ONE; -HYDROMORPHONE 1MG/1ML INJ ONE; -LIDOCAINE HCL 2% LOCAL INJ 5 ML SDV VIAL INJ ONE; -MIDAZOLAM HCL 2 MG/2 ML VIAL ONE; -NEOSTIGMINE 1 MG/ML 10ML VIAL ONE; -ONDANSETRON HCL INJ 2MG/ML 2ML 2 MG/ML VIAL ONE; -POVIDONE IODINE 0.05% 0.05 % ML PO ONE; -PROPOFOL IV EMULSION 10 MG/ML 20 ML VIAL ONE; -ROCURONIUM BROMIDE 10 MG/ML 5ML VIAL IV ONE; -SEVOFLURANE INHAL SOLN 250 ML PEN BTL ONE
[2022-10-16] MEDS ORDERED: ONDANSETRON HCL INJ 2MG/ML 2ML 2 MG/ML VIAL IV STA (16:08)
[2022-10-16] MEDS ORDERED: SODIUM CHLORIDE 0.9% 500ML 500 ML IV ONE (16:15)
[2022-10-16 16:21] LABS: BASOPHILS % 0.4 % (0.0-1.0); EOSINOPHILS # (AUTO) 0.2 (0.0-0.4); EOSINOPHILS % 2.7 % (0.0-6.0); LYMPHOCYTES # (AUTO) 2.2 (1.0-3.2); LYMPHOCYTES % 30.5 % (18.0-39.1); MEAN CORPUSCULAR HEMOGLOBIN 29.4 pg (28-32); MEAN CORPUSCULAR HGB CONC 31.1 g/dL (31-35); MEAN CORPUSCULAR VOLUME 94.3 fL (81-99); MONOCYTES # (AUTO) 0.7 (0.2-0.8); MONOCYTES % 9.6 % (4.4-11.3); NEUTROPHILS # (AUTO) 4.2 (2.1-6.9); NEUTROPHILS % 56.7 % (38.7-80.0); PLATELET COUNT 271 x10e3/uL (140-360); RED BLOOD COUNT 4.77 x10e6/uL (3.6-5.1); RED CELL DISTRIBUTION WIDTH 12.9 % (11.7-14.4)
[2022-10-16] MEDS ORDERED: Morphine 4mg INJECTION 4 MG/ML INJ IV ONE (16:30)
[2022-10-16 16:32] LABS: INR 1.09; PROTHROMBIN TIME 14.3 seconds (11.9-14.5)
[2022-10-16 16:33] LABS: PARTIAL THROMBOPLASTIN TIME 26.3 seconds (23.8-35.5)
[2022-10-16 16:42] LABS: ALBUMIN 3.7 g/dL (3.5-5.0); ALBUMIN/GLOBULIN RATIO 1.1 (0.8-2.0); ANION GAP 13.9 mmol/L (8-16); CALCIUM 9.9 mg/dL (8.4-10.2); CREATININE, SERUM 0.8 mg/dL (0.57-1.11); MAGNESIUM 2.2 MG/DL (1.3-2.1); POTASSIUM 3.9 mmol/L (3.5-5.1)
[2022-10-16] MEDS ORDERED: TRAMADOL HCL 50 MG TAB PO ONE (16:45)
[2022-10-16 16:48] LABS: CREATINE KINASE MB 0.7 ng/mL (0-5.0)
[2022-10-16] MEDS ORDERED: IOPAMIDOL 370 MG/ML 100 ML INFUS..BTL INJ ONE (17:17)
[2022-10-16] MEDS ORDERED: METOPROLOL TARTRATE INJ 1 MG/ML VIAL IV PRN (18:15)
[2022-10-16] MEDS ORDERED: POLYETHYLENE GLYCOL 3350 17 GM PACK PO PRN (18:15)
[2022-10-16] MEDS ORDERED: ACETAMINOPHEN 325 MG TAB PO PRN (18:15)
[2022-10-16] MEDS: FAMOTIDINE 20 MG/2 ML VIAL IV SCH (18:42)
[2022-10-16 20:02] VITALS: BP 166/81
[2022-10-16 20:30] VITALS: BP 166/81
[2022-10-16] MEDS ORDERED: TRAMADOL HCL 50 MG TAB PO PRN (22:30)
[2022-10-17] VITALS (8 sets, daily range): BP systolic 130–163; BP diastolic 71–89
[2022-10-17 03:37] LABS: CREATINE KINASE MB 0.8 ng/mL (0-5.0)
[2022-10-17] MEDS: FAMOTIDINE 20 MG/2 ML VIAL IV SCH ×2 (05:30→17:40)
[2022-10-17 06:48] LABS: BASOPHILS % 0.4 % (0.0-1.0); EOSINOPHILS # (AUTO) 0.3 (0.0-0.4); EOSINOPHILS % 5.1 % (0.0-6.0); HEMATOCRIT 41.6 % (34.2-44.1); HEMOGLOBIN 12.7 g/dL (12.0-16.0); LYMPHOCYTES # (AUTO) 1.8 (1.0-3.2); MEAN CORPUSCULAR HEMOGLOBIN 29.3 pg (28-32); MEAN CORPUSCULAR HGB CONC 30.5 g/dL (31-35); MEAN CORPUSCULAR VOLUME 96.1 fL (81-99); MONOCYTES # (AUTO) 0.5 (0.2-0.8); MONOCYTES % 9.2 % (4.4-11.3); NEUTROPHILS # (AUTO) 2.5 (2.1-6.9); NEUTROPHILS % 48.9 % (38.7-80.0); PLATELET COUNT 234 x10e3/uL (140-360); RED BLOOD COUNT 4.33 x10e6/uL (3.6-5.1); RED CELL DISTRIBUTION WIDTH 13.1 % (11.7-14.4)
[2022-10-17 07:13] LABS: ALBUMIN 3.1 g/dL (3.5-5.0); ANION GAP 11.6 mmol/L (8-16); CALCIUM 8.7 mg/dL (8.4-10.2); CHOL/HDL RATIO 4.1 (3.0-3.6); CREATININE, SERUM 0.75 mg/dL (0.57-1.11); POTASSIUM 3.6 mmol/L (3.5-5.1)
[2022-10-17 07:31] LABS: CREATINE KINASE MB 0.8 ng/mL (0-5.0)
[2022-10-17 07:41] LABS: PHOSPHORUS 3.2 MG/DL (2.3-4.7)
[2022-10-17 08:03] LABS: THYROID STIMULATING HORMONE 1.969 uIU/mL (0.350-4.940)
[2022-10-17] MEDS ORDERED: GUSELKUMAB PO SCH (08:15)
[2022-10-17] MEDS ORDERED: IBUPROFEN 400 MG TAB PO PRN (08:30)
[2022-10-17] MEDS: Morphine 2mg Syringe 2 MG/ML SYR IV PRN (08:59)
[2022-10-17] MEDS: LUTEIN PO SCH (09:00)
[2022-10-17] MEDS: [UNRECOGNIZED DRUG - OTHER] PO SCH (09:00)
[2022-10-17] MEDS: BIOTIN PO SCH (09:00)
[2022-10-17] MEDS ORDERED: ASPIRIN 81 MG ENTERIC COATED PO SCH (09:00)
[2022-10-17] MEDS: NON-FORMULARY MEDICATION (Garlic 1 CAP) PO SCH (09:00)
[2022-10-17] MEDS ORDERED: CLOPIDOGREL BISULFATE 75 MG TAB PO SCH (09:00)
[2022-10-17] MEDS: ZINC AMINO ACID CHELATE PO SCH (09:00)
[2022-10-17] MEDS: DHA PO SCH (09:00)
[2022-10-17] MEDS: FISH OIL PO SCH (09:00)
[2022-10-17] MEDS: EPA PO SCH (09:00)
[2022-10-17] MEDS: NON-FORMULARY MEDICATION (Ubidecarenone (Coq-10) 200 MG) PO SCH (09:00)
[2022-10-17] MEDS: OMEGA PO SCH (09:00)
[2022-10-17] MEDS: CLOPIDOGREL BISULFATE 75 MG TAB PO SCH (09:05)
[2022-10-17] MEDS: ONDANSETRON HCL INJ 2MG/ML 2ML 2 MG/ML VIAL IV PRN (09:05)
[2022-10-17] MEDS: DOCUSATE SODIUM 100 MG CAP PO SCH ×2 (09:06→17:40)
[2022-10-17] MEDS ORDERED: METOPROLOL SUCCINATE 50 MG TAB XL PO SCH (10:00)
[2022-10-17] MEDS ORDERED: FERROUS SULFATE 325 MG TAB PO ONE (10:00)
[2022-10-17] MEDS: MULTIVITAMINS/MINERALS TAB PO SCH (10:09)
[2022-10-17] MEDS: LACTOBACILLUS ACIDOPHILUS CAPSULE PO SCH (10:09)
[2022-10-17] MEDS: GLIMEPIRIDE 2 MG TAB PO SCH (10:09)
[2022-10-17] MEDS: ISOSORBIDE MONONITRATE 30 MG TAB CR PO SCH (10:09)
[2022-10-17] MEDS: POTASSIUM CITRATE ER 10 MEQ TAB PO SCH (10:28)
[2022-10-17 16:03] LABS: CREATINE KINASE MB 0.8 ng/mL (0-5.0)
[2022-10-17] MEDS ORDERED: ATORVASTATIN 40 MG TAB PO SCH (21:00)
[2022-10-18] VITALS: BP 153/80
[2022-10-18] MEDS: FAMOTIDINE 20 MG/2 ML VIAL IV SCH (06:19)
[2022-10-18] MEDS: Morphine 2mg Syringe 2 MG/ML SYR IV PRN (07:15)
[2022-10-18 08:00] VITALS: BP 164/67
[2022-10-18] MEDS: MULTIVITAMINS/MINERALS TAB PO SCH (08:43)
[2022-10-18] MEDS: LACTOBACILLUS ACIDOPHILUS CAPSULE PO SCH (08:43)
[2022-10-18] MEDS: POTASSIUM CITRATE ER 10 MEQ TAB PO SCH (08:43)
[2022-10-18] MEDS: GLIMEPIRIDE 2 MG TAB PO SCH (08:44)
[2022-10-18] MEDS: CLOPIDOGREL BISULFATE 75 MG TAB PO SCH (08:44)
[2022-10-18] MEDS: DOCUSATE SODIUM 100 MG CAP PO SCH (08:44)
[2022-10-18] MEDS: ISOSORBIDE MONONITRATE 30 MG TAB CR PO SCH (08:44)
[2022-10-18] MEDS: ONDANSETRON HCL INJ 2MG/ML 2ML 2 MG/ML VIAL IV PRN (08:45)
[2022-10-18] MEDS: OMEGA PO SCH (08:48)
[2022-10-18] MEDS: EPA PO SCH (08:48)
[2022-10-18] MEDS: FISH OIL PO SCH (08:48)
[2022-10-18] MEDS: DHA PO SCH (08:48)
[2022-10-18] MEDS: LUTEIN PO SCH (08:48)
[2022-10-18] MEDS: BIOTIN PO SCH (08:48)
[2022-10-18] MEDS: ZINC AMINO ACID CHELATE PO SCH (08:48)
[2022-10-18] MEDS: NON-FORMULARY MEDICATION (Garlic 1 CAP) PO SCH (08:48)
[2022-10-18] MEDS: NON-FORMULARY MEDICATION (Ubidecarenone (Coq-10) 200 MG) PO SCH (08:48)
[2022-10-18] MEDS: [UNRECOGNIZED DRUG - OTHER] PO SCH (08:48)
[2022-10-18] MEDS ORDERED: METOPROLOL SUCCINATE 50 MG TAB XL PO SCH (09:00)
[2022-10-18] MEDS ORDERED: ASPIRIN 81 MG CHEW TAB PO SCH (09:00)
[2022-10-18 09:09] VITALS: BP 164/67
[2022-10-18 13:45] VITALS: BP 150/64
[2022-10-18] MEDS ORDERED: ACETAMINOPHEN/CODEINE 300MG - 30MG TAB PO PRN (15:00)
[2022-10-18] MEDS ORDERED: TOPROL XL50 MG PO (15:55)
[2022-10-18] MEDS ORDERED: ULTRAM 50MG50 MG PO (15:55)
[2022-10-18 17:15] VITALS: BP 159/70
[2022-10-20] MEDS ORDERED: (Semaglutide (Ozempic) 0.5 MG) SC SCH (09:00)
== END 2022-10-18 17:17 | disposition home or self-care (01) | DRG 204 ==
LOC: ER 15:59 → ERHOLD 17:59 → MED/SURG2 19:37 → OBSVTOIN 10-18 09:57
PROVIDERS: ADMIT Internal Medicine; ATTEND Internal Medicine
DX: R06.00 Dyspnea, unspecified (principal); I31.39 Other pericardial effusion (noninflammatory); J98.11 Atelectasis; R07.89 Other chest pain; I11.9 Hypertensive heart disease without heart failure; R79.89 Other specified abnormal findings of blood chemistry; I25.10 Atherosclerotic heart disease of native coronary artery without angina pectoris; I08.2 Rheumatic disorders of both aortic and tricuspid valves; I25.2 Old myocardial infarction; K75.3 Granulomatous hepatitis, not elsewhere classified; E11.9 Type 2 diabetes mellitus without complications; D73.89 Other diseases of spleen; L40.9 Psoriasis, unspecified; E78.5 Hyperlipidemia, unspecified; Z90.710 Acquired absence of both cervix and uterus; Z98.890 Other specified postprocedural states; Z95.5 Presence of coronary angioplasty implant and graft; Z80.3 Family history of malignant neoplasm of breast; Z82.5 Family history of asthma and other chronic lower respiratory diseases; Z82.3 Family history of stroke; Z82.49 Family history of ischemic heart disease and other diseases of the circulatory system; Z79.82 Long term (current) use of aspirin; Z79.02 Long term (current) use of antithrombotics/antiplatelets; Z79.899 Other long term (current) drug therapy; Z79.84 Long term (current) use of oral hypoglycemic drugs
CPT/HCPCS: 36415; 71045; 71260; 80053; 80061; 82550; 82553; 82948; 83036; 83735; 83880; 84100; 84443; 84484; 85025; 85379; 85610; 85730; 93005; 93306; 94799; 99284; G0378; J2270; J2405; J7040; Q9967

== ENCOUNTER → 2022-11-14 | Day surgery (SDC) | payer MEDICARE ==
[2022-11-11 09:37] LABS: BASOPHILS # (AUTO) 0.1 (0.0-0.1); BASOPHILS % 0.9 % (0.0-1.0); EOSINOPHILS # (AUTO) 0.2 (0.0-0.4); EOSINOPHILS % 3.4 % (0.0-6.0); HEMATOCRIT 43.3 % (34.2-44.1); HEMOGLOBIN 13.7 g/dL (12.0-16.0); LYMPHOCYTES # (AUTO) 2.2 (1.0-3.2); LYMPHOCYTES % 38.1 % (18.0-39.1); MEAN CORPUSCULAR HEMOGLOBIN 29.3 pg (28-32); MEAN CORPUSCULAR HGB CONC 31.6 g/dL (31-35); MEAN CORPUSCULAR VOLUME 92.5 fL (81-99); MONOCYTES # (AUTO) 0.4 (0.2-0.8); MONOCYTES % 7.4 % (4.4-11.3); NEUTROPHILS # (AUTO) 2.8 (2.1-6.9); NEUTROPHILS % 49.8 % (38.7-80.0); PLATELET COUNT 203 x10e3/uL (140-360); RED BLOOD COUNT 4.68 x10e6/uL (3.6-5.1); RED CELL DISTRIBUTION WIDTH 13.2 % (11.7-14.4)
[2022-11-11 09:52] LABS: PROTHROMBIN TIME 13.4 seconds (11.9-14.5)
[2022-11-11 09:53] LABS: PARTIAL THROMBOPLASTIN TIME 27.9 seconds (23.8-35.5)
[2022-11-11 10:01] LABS: ALBUMIN 3.9 g/dL (3.5-5.0); ALBUMIN/GLOBULIN RATIO 1.1 (0.8-2.0); ANION GAP 12.9 mmol/L (8-16); CALCIUM 9.6 mg/dL (8.4-10.2); CHOL/HDL RATIO 3.6 (3.0-3.6); CREATININE, SERUM 0.76 mg/dL (0.57-1.11); POTASSIUM 4.9 mmol/L (3.5-5.1)
[2022-11-14] VITALS (15 sets, daily range): BP systolic 152–180; BP diastolic 70–95
[~2022-11-14] VITALS: Ht 154.9 cm; Wt 68.0 kg
[~2022-11-14] MED LIST changes: +ASPIRIN 325 MG TAB ONE; +CLOPIDOGREL BISULFATE 75 MG TAB ONE; +FENTANYL CITRATE/PF 100MCG/2 ML INJ ONE; +HEPARIN SOD (PORCINE) 1000 UNIT/ML 30ML ONE; +HEPARIN SOD/SOD CHLORIDE 2,000 ML ONE; +IOPAMIDOL 370 MG/ML 100 ML INFUS..BTL INJ ONE; +LIDOCAINE HCL 2% LOCAL 20 ML VIAL ONE; +MIDAZOLAM HCL 2 MG/2 ML VIAL ONE; +Morphine 2mg Syringe 2 MG/ML SYR IV ONE; +Morphine 4mg INJECTION 4 MG/ML INJ ONE; +NITROGLYCERIN/D5W 200 MCG/ML 250 ML ONE; +SODIUM CHLORIDE 0.9% 1000ML 1,000 ML ONE; +TOPROL XL50 MG PO; +ULTRAM 50MG50 MG PO
== END | disposition home or self-care (01) ==
LOC: CATH LAB 06:53
PROVIDERS: ATTEND Internal Medicine Cardiovascular Disease
DX: I25.110 Atherosclerotic heart disease of native coronary artery with unstable angina pectoris (principal); E78.2 Mixed hyperlipidemia; I65.22 Occlusion and stenosis of left carotid artery; I87.2 Venous insufficiency (chronic) (peripheral); I10 Essential (primary) hypertension; R00.2 Palpitations; I25.2 Old myocardial infarction; E11.9 Type 2 diabetes mellitus without complications; Z01.810 Encounter for preprocedural cardiovascular examination; Z01.812 Encounter for preprocedural laboratory examination; Z20.822 Contact with and (suspected) exposure to COVID-19; Z79.02 Long term (current) use of antithrombotics/antiplatelets; Z79.82 Long term (current) use of aspirin; Z79.84 Long term (current) use of oral hypoglycemic drugs; Z79.899 Other long term (current) drug therapy; Z95.5 Presence of coronary angioplasty implant and graft; Z86.73 Personal history of transient ischemic attack (TIA), and cerebral infarction without residual deficits; Z82.3 Family history of stroke
CPT/HCPCS: 93458; C9600; C9601; 0223U; 36415; 80053; 80061; 85025; 85610; 85730; 92920; 92928; 93005; 99152; 99153; C1725; C1760; C1876; J1644; J2001; J2250; J2270; J3010; J7030; Q9967

== ENCOUNTER 2023-01-30 08:33 | Inpatient (IN) | payer MEDICARE ==
[~2023-01-30] VITALS: Ht 154.9 cm; Wt 68.0 kg
[~2023-01-30 08:33] MED LIST changes: -ASPIRIN 325 MG TAB ONE; -CLOPIDOGREL BISULFATE 75 MG TAB ONE; -FENTANYL CITRATE/PF 100MCG/2 ML INJ ONE; -HEPARIN SOD (PORCINE) 1000 UNIT/ML 30ML ONE; -HEPARIN SOD/SOD CHLORIDE 2,000 ML ONE; -IOPAMIDOL 370 MG/ML 100 ML INFUS..BTL INJ ONE; -LIDOCAINE HCL 2% LOCAL 20 ML VIAL ONE; -MIDAZOLAM HCL 2 MG/2 ML VIAL ONE; -Morphine 2mg Syringe 2 MG/ML SYR IV ONE; -Morphine 4mg INJECTION 4 MG/ML INJ ONE; -NITROGLYCERIN/D5W 200 MCG/ML 250 ML ONE; -SODIUM CHLORIDE 0.9% 1000ML 1,000 ML ONE
[2023-01-30 09:23] LABS: BASOPHILS # (AUTO) 0.1 (0.0-0.1); BASOPHILS % 0.7 % (0.0-1.0); EOSINOPHILS # (AUTO) 0.2 (0.0-0.4); EOSINOPHILS % 2.1 % (0.0-6.0); HEMATOCRIT 43.6 % (34.2-44.1); HEMOGLOBIN 14.1 g/dL (12.0-16.0); LYMPHOCYTES # (AUTO) 2.6 (1.0-3.2); LYMPHOCYTES % 35.9 % (18.0-39.1); MEAN CORPUSCULAR HEMOGLOBIN 29.4 pg (28-32); MEAN CORPUSCULAR HGB CONC 32.3 g/dL (31-35); MEAN CORPUSCULAR VOLUME 90.8 fL (81-99); MONOCYTES # (AUTO) 0.5 (0.2-0.8); MONOCYTES % 7.2 % (4.4-11.3); NEUTROPHILS # (AUTO) 3.8 (2.1-6.9); NEUTROPHILS % 53.5 % (38.7-80.0); PLATELET COUNT 221 x10e3/uL (140-360)
[2023-01-30] MEDS ORDERED: REPATHA SU140 MG/1 M SQ (09:34)
[2023-01-30] MEDS ORDERED: METOPROLOL SUCC25 MG PO (09:34)
[2023-01-30] MEDS ORDERED: [UNRECOGNIZED DRUG - OTHER] PO (09:34)
[2023-01-30 09:44] LABS: ALBUMIN 3.9 g/dL (3.5-5.0); ALBUMIN/GLOBULIN RATIO 1.3 (0.8-2.0); CALCIUM 9.4 mg/dL (8.4-10.2); CREATININE, SERUM 0.84 mg/dL (0.57-1.11)
[2023-01-30 09:45] LABS: LIPASE 113 U/L (8-78)
[2023-01-30] MEDS ORDERED: Morphine 4mg INJECTION 4 MG/ML INJ IV PRN (10:00)
[2023-01-30] MEDS ORDERED: ONDANSETRON HCL INJ 2MG/ML 2ML 2 MG/ML VIAL IV PRN (10:00)
[2023-01-30] MEDS ORDERED: ASPIRIN 81 MG CHEW TAB PO ONE ×2 (10:30)
[2023-01-30] MEDS ORDERED: FERROUS SULFATE 325 MG TAB PO ONE (11:30)
[2023-01-30 12:00] VITALS: PULSE 69; RESP 18; O2SAT 96
[2023-01-30 12:17] LABS: AMPHETAMINES SCREEN,URINE NEGATIVE (NEGATIVE); BENZODIAZEPINES SCREEN,URINE NEGATIVE (NEGATIVE); PHENCYCLIDINE SCREEN,URINE NEGATIVE (NEGATIVE)
[2023-01-30 16:00] VITALS: BP 118/63; PULSE 63; RESP 19; TEMP 98; O2SAT 98
[2023-01-30 17:13] VITALS: BP 118/63; PULSE 63; RESP 19; TEMP 98; O2SAT 98
[2023-01-30] MEDS: METOPROLOL SUCCINATE 25 MG TAB XL PO SCH (17:34)
[2023-01-30 17:55] LABS: CREATINE KINASE 49 IU/L (29-168)
[2023-01-30 19:27] VITALS: PULSE 75; RESP 18; O2SAT 97
[2023-01-30 20:00] VITALS: BP 119/65; PULSE 70; RESP 16; TEMP 98; O2SAT 100
[2023-01-30] MEDS: ATORVASTATIN 40 MG TAB PO SCH (20:45)
[2023-01-31] VITALS (11 sets, daily range): BP systolic 111–139; BP diastolic 57–70; PULSE 65–73; RESP 16–21; TEMP 97.5–98.3; O2SAT 97–100
[2023-01-31 03:34] LABS: BASOPHILS # (AUTO) 0.1 (0.0-0.1); BASOPHILS % 0.7 % (0.0-1.0); EOSINOPHILS # (AUTO) 0.2 (0.0-0.4); EOSINOPHILS % 2.2 % (0.0-6.0); HEMATOCRIT 43.7 % (34.2-44.1); HEMOGLOBIN 13.8 g/dL (12.0-16.0); LYMPHOCYTES # (AUTO) 2.9 (1.0-3.2); LYMPHOCYTES % 39.9 % (18.0-39.1); MEAN CORPUSCULAR HEMOGLOBIN 29.1 pg (28-32); MEAN CORPUSCULAR HGB CONC 31.6 g/dL (31-35); MEAN CORPUSCULAR VOLUME 92.2 fL (81-99); MONOCYTES # (AUTO) 0.5 (0.2-0.8); MONOCYTES % 6.2 % (4.4-11.3); NEUTROPHILS # (AUTO) 3.7 (2.1-6.9); NEUTROPHILS % 50.6 % (38.7-80.0); PLATELET COUNT 208 x10e3/uL (140-360); RED BLOOD COUNT 4.74 x10e6/uL (3.6-5.1)
[2023-01-31 03:48] LABS: ANION GAP 12.1 mmol/L (8-16); CALCIUM 9.1 mg/dL (8.4-10.2); CREATININE, SERUM 0.81 mg/dL (0.57-1.11); POTASSIUM 4.1 mmol/L (3.5-5.1)
[2023-01-31 03:50] LABS: CHOL/HDL RATIO 2.4 (3.0-3.6)
[2023-01-31 04:10] LABS: CREATINE KINASE MB 0.5 ng/mL (0-5.0)
[2023-01-31 04:12] LABS: THYROID STIMULATING HORMONE 3.452 uIU/mL (0.350-4.940)
[2023-01-31] MEDS: METOPROLOL SUCCINATE 25 MG TAB XL PO SCH ×2 (08:25→17:03)
[2023-01-31] MEDS: ASPIRIN 81 MG CHEW TAB PO SCH (08:26)
[2023-01-31] MEDS: CLOPIDOGREL BISULFATE 75 MG TAB PO SCH (08:26)
[2023-01-31] MEDS: ISOSORBIDE MONONITRATE 30 MG TAB CR PO SCH (08:26)
[2023-01-31] MEDS ORDERED: ONDANSETRON HCL 4 MG ORAL DISINTEGRATING TAB PO PRN (10:15)
[2023-01-31] MEDS: DOCUSATE SODIUM 100 MG CAP PO SCH (12:07)
[2023-01-31] MEDS: MAGNESIUM OXIDE 400 MG TAB PO SCH (12:07)
[2023-01-31] MEDS: SODIUM CHLORIDE 0.9% 1000ML 1,000 ML IV SCH (20:10)
[2023-01-31] MEDS: ATORVASTATIN 40 MG TAB PO SCH (20:10)
[2023-02-01] VITALS (10 sets, daily range): BP systolic 121–145; BP diastolic 55–77; PULSE 60–73; RESP 16–18; TEMP 97.3–98.1; O2SAT 97–100
[2023-02-01] MEDS: SODIUM CHLORIDE 0.9% 1000ML 1,000 ML IV SCH ×3 (04:36→22:18)
[2023-02-01 05:33] LABS: BASOPHILS % 0.6 % (0.0-1.0); EOSINOPHILS # (AUTO) 0.2 (0.0-0.4); EOSINOPHILS % 2.3 % (0.0-6.0); LYMPHOCYTES # (AUTO) 2.6 (1.0-3.2); LYMPHOCYTES % 37.2 % (18.0-39.1); MEAN CORPUSCULAR HEMOGLOBIN 29.5 pg (28-32); MEAN CORPUSCULAR HGB CONC 31.8 g/dL (31-35); MEAN CORPUSCULAR VOLUME 92.8 fL (81-99); MONOCYTES # (AUTO) 0.5 (0.2-0.8); MONOCYTES % 7.6 % (4.4-11.3); NEUTROPHILS # (AUTO) 3.7 (2.1-6.9); NEUTROPHILS % 51.7 % (38.7-80.0); PLATELET COUNT 212 x10e3/uL (140-360); RED BLOOD COUNT 4.74 x10e6/uL (3.6-5.1); RED CELL DISTRIBUTION WIDTH 13.8 % (11.7-14.4)
[2023-02-01 05:53] LABS: INR 1.02; PROTHROMBIN TIME 13.9 seconds (11.9-14.5)
[2023-02-01 05:54] LABS: PARTIAL THROMBOPLASTIN TIME 26.7 seconds (23.8-35.5)
[2023-02-01 05:59] LABS: CALCIUM 8.7 mg/dL (8.4-10.2); CREATININE, SERUM 0.75 mg/dL (0.57-1.11)
[2023-02-01] MEDS ORDERED: HEPARIN SOD (PORCINE) 1000 UNIT/ML 30ML ONE (07:12)
[2023-02-01] MEDS ORDERED: HEPARIN SOD/SOD CHLORIDE 2,000 ML ONE (07:12)
[2023-02-01] MEDS ORDERED: LIDOCAINE HCL 2% LOCAL 20 ML VIAL ONE (07:12)
[2023-02-01] MEDS ORDERED: NITROGLYCERIN/D5W 200 MCG/ML 250 ML ONE (07:13)
[2023-02-01] MEDS ORDERED: SODIUM CHLORIDE 0.9% 1000ML 1,000 ML ONE (07:13)
[2023-02-01] MEDS ORDERED: IOPAMIDOL 370 MG/ML 100 ML INFUS..BTL INJ ONE (07:13)
[2023-02-01] MEDS ORDERED: MIDAZOLAM HCL 2 MG/2 ML VIAL ONE (08:31)
[2023-02-01] MEDS ORDERED: FENTANYL CITRATE/PF 100MCG/2 ML INJ ONE (08:32)
[2023-02-01] MEDS: ASPIRIN 81 MG CHEW TAB PO SCH (09:00)
[2023-02-01] MEDS: CLOPIDOGREL BISULFATE 75 MG TAB PO SCH (09:00)
[2023-02-01] MEDS ORDERED: ASPIRIN 325 MG TAB ONE (09:18)
[2023-02-01] MEDS ORDERED: CLOPIDOGREL BISULFATE 75 MG TAB ONE (09:18)
[2023-02-01] MEDS: DOCUSATE SODIUM 100 MG CAP PO SCH (10:25)
[2023-02-01] MEDS: ISOSORBIDE MONONITRATE 30 MG TAB CR PO SCH (10:26)
[2023-02-01] MEDS: METOPROLOL SUCCINATE 25 MG TAB XL PO SCH ×2 (10:26→16:28)
[2023-02-01] MEDS: MAGNESIUM OXIDE 400 MG TAB PO SCH (10:28)
[2023-02-01] MEDS ORDERED: HYDROCODONE/APAP 7.5MG-325MG 1 EA TAB PO PRN (15:15)
[2023-02-01] MEDS ORDERED: TRAMADOL HCL 50 MG TAB PO PRN (16:15)
[2023-02-01] MEDS: ATORVASTATIN 40 MG TAB PO SCH (22:17)
[2023-02-02 00:21] VITALS: BP 123/57; PULSE 67; RESP 18; TEMP 98; O2SAT 97
[2023-02-02] MEDS: SODIUM CHLORIDE 0.9% 1000ML 1,000 ML IV SCH (03:03)
[2023-02-02 04:00] VITALS: BP 110/59; PULSE 72; RESP 18; TEMP 98.1; O2SAT 99
[2023-02-02 04:58] LABS: BASOPHILS % 0.5 % (0.0-1.0); EOSINOPHILS # (AUTO) 0.1 (0.0-0.4); EOSINOPHILS % 1.6 % (0.0-6.0); HEMATOCRIT 40.7 % (34.2-44.1); HEMOGLOBIN 13.2 g/dL (12.0-16.0); LYMPHOCYTES # (AUTO) 1.9 (1.0-3.2); LYMPHOCYTES % 21.5 % (18.0-39.1); MEAN CORPUSCULAR HEMOGLOBIN 29.9 pg (28-32); MEAN CORPUSCULAR HGB CONC 32.4 g/dL (31-35); MEAN CORPUSCULAR VOLUME 92.3 fL (81-99); MONOCYTES # (AUTO) 0.7 (0.2-0.8); MONOCYTES % 8.1 % (4.4-11.3); NEUTROPHILS # (AUTO) 5.9 (2.1-6.9); NEUTROPHILS % 67.8 % (38.7-80.0); PLATELET COUNT 171 x10e3/uL (140-360); RED BLOOD COUNT 4.41 x10e6/uL (3.6-5.1); RED CELL DISTRIBUTION WIDTH 13.7 % (11.7-14.4)
[2023-02-02 05:12] LABS: CALCIUM 8.4 mg/dL (8.4-10.2); CREATININE, SERUM 0.72 mg/dL (0.57-1.11); MAGNESIUM 2.1 MG/DL (1.3-2.1); PHOSPHORUS 3.1 MG/DL (2.3-4.7)
[2023-02-02 08:20] VITALS: BP 111/70; PULSE 61; RESP 16; TEMP 98.3; O2SAT 100
[2023-02-02 08:45] VITALS: BP 111/70; PULSE 61; RESP 16; TEMP 98.3; O2SAT 100
[2023-02-02] MEDS: ASPIRIN 81 MG CHEW TAB PO SCH (09:35)
[2023-02-02] MEDS: DOCUSATE SODIUM 100 MG CAP PO SCH (09:35)
[2023-02-02] MEDS: CLOPIDOGREL BISULFATE 75 MG TAB PO SCH (09:36)
[2023-02-02] MEDS: MAGNESIUM OXIDE 400 MG TAB PO SCH (09:36)
[2023-02-02] MEDS: ISOSORBIDE MONONITRATE 30 MG TAB CR PO SCH (09:36)
[2023-02-02] MEDS: METOPROLOL SUCCINATE 25 MG TAB XL PO SCH (09:37)
== END 2023-02-02 12:08 | disposition home or self-care (01) | DRG 247 ==
LOC: ER 08:39 → ERHOLD 10:01 → MED/SURG 15:42 → OBSVTOIN 01-31 18:21
PROVIDERS: ADMIT Internal Medicine; ATTEND Internal Medicine
PROC: 027034Z Dilation of Coronary Artery, One Artery with Drug-eluting Intraluminal Device, Percutaneous Approach (ICD-10-PCS; principal; 2023-02-01)
PROC: 4A023N7 Measurement of Cardiac Sampling and Pressure, Left Heart, Percutaneous Approach (ICD-10-PCS; 2023-02-01)
PROC: B2111ZZ Fluoroscopy of Multiple Coronary Arteries using Low Osmolar Contrast (ICD-10-PCS; 2023-02-01)
PROC: B2151ZZ Fluoroscopy of Left Heart using Low Osmolar Contrast (ICD-10-PCS; 2023-02-01)
DX: I25.110 Atherosclerotic heart disease of native coronary artery with unstable angina pectoris (principal); I25.2 Old myocardial infarction; I10 Essential (primary) hypertension; F41.9 Anxiety disorder, unspecified; E78.2 Mixed hyperlipidemia; E11.69 Type 2 diabetes mellitus with other specified complication; Z95.5 Presence of coronary angioplasty implant and graft; Z79.84 Long term (current) use of oral hypoglycemic drugs; Z86.73 Personal history of transient ischemic attack (TIA), and cerebral infarction without residual deficits; Z20.822 Contact with and (suspected) exposure to COVID-19; Z59.6 Low income; Z79.82 Long term (current) use of aspirin
CPT/HCPCS: 0223U; 36415; 71045; 76705; 76937; 80048; 80053; 80061; 80307; 82550; 82553; 82948; 83036; 83690; 83735; 84100; 84443; 84484; 85025; 85610; 85730; 92920; 92928; 93005; 93306; 93458; 94799; 99152; 99153; 99285; C1725; C1760; C1769; C1874; G0378; J1644; J2001; J2250; J2270; J7030; Q9967

== ENCOUNTER 2024-08-29 11:24 | Observation (INO) | payer MEDICARE ==
[~2024-08-29] VITALS: Ht 154.9 cm; Wt 68.0 kg
[2024-08-29] VITALS (11 sets, daily range): BP systolic 103–138; BP diastolic 42–62; PULSE 58–75; RESP 15–18; TEMP 97.9–98.6; O2SAT 97–99
[~2024-08-29 11:24] MED LIST changes: +METOPROLOL SUCC25 MG PO; +REPATHA SU140 MG/1 M SQ
[2024-08-29 11:59] LABS: BASOPHILS % 0.5 % (0.0-1.0); EOSINOPHILS # (AUTO) 0.4 (0.0-0.4); EOSINOPHILS % 6.7 % (0.0-6.0); HEMATOCRIT 44.6 % (34.2-44.1); HEMOGLOBIN 13.6 g/dL (12.0-16.0); LYMPHOCYTES # (AUTO) 2.2 (1.0-3.2); LYMPHOCYTES % 33.3 % (18.0-39.1); MEAN CORPUSCULAR HEMOGLOBIN 29.2 pg (28-32); MEAN CORPUSCULAR HGB CONC 30.5 g/dL (31-35); MEAN CORPUSCULAR VOLUME 95.7 fL (81-99); MONOCYTES # (AUTO) 0.5 (0.2-0.8); MONOCYTES % 7.8 % (4.4-11.3); NEUTROPHILS # (AUTO) 3.4 (2.1-6.9); NEUTROPHILS % 51.4 % (38.7-80.0); PLATELET COUNT 198 x10e3/uL (140-360); RED BLOOD COUNT 4.66 x10e6/uL (3.6-5.1); RED CELL DISTRIBUTION WIDTH 13.2 % (11.7-14.4); WHITE BLOOD COUNT 6.58 x10e3/uL (4.8-10.8)
[2024-08-29 12:15] LABS: ALBUMIN/GLOBULIN RATIO 1.2 (0.8-2.0); BILIRUBIN,TOTAL 0.3 mg/dL (0.2-1.2); CALCIUM 9.6 mg/dL (8.4-10.2); CREATININE, SERUM 0.91 mg/dL (0.57-1.11); TOTAL PROTEIN 7.3 g/dL (6.5-8.1)
[2024-08-29 12:21] LABS: TROPONIN I 0.005 ng/mL (0-0.300)
[2024-08-29] MEDS: ASPIRIN 81 MG CHEW TAB PO ONE (14:58)
[2024-08-30] MEDS ORDERED: Morphine 2mg Syringe 2 MG/ML SYR IV PRN
[2024-08-30] MEDS ORDERED: ACETAMINOPHEN/CODEINE 300MG - 30MG TAB PO PRN
[2024-08-30] MEDS: TEMAZEPAM 7.5 MG CAP PO SCH (00:17)
[2024-08-30] MEDS ORDERED: DEXTROSE 50% SYRINGE 50 ML IV PRN ×2 (01:45)
[2024-08-30 03:00] VITALS: BP 99/57; PULSE 60; RESP 18; TEMP 97.8; O2SAT 96
[2024-08-30 03:28] LABS: TROPONIN I 0.003 ng/mL (0-0.300)
[2024-08-30 05:32] LABS: BASOPHILS % 0.5 % (0.0-1.0); EOSINOPHILS # (AUTO) 0.5 (0.0-0.4); EOSINOPHILS % 8.9 % (0.0-6.0); HEMATOCRIT 39.3 % (34.2-44.1); HEMOGLOBIN 12.6 g/dL (12.0-16.0); LYMPHOCYTES # (AUTO) 2.1 (1.0-3.2); MEAN CORPUSCULAR HEMOGLOBIN 29.6 pg (28-32); MEAN CORPUSCULAR HGB CONC 32.1 g/dL (31-35); MEAN CORPUSCULAR VOLUME 92.5 fL (81-99); MONOCYTES # (AUTO) 0.6 (0.2-0.8); MONOCYTES % 9.7 % (4.4-11.3); NEUTROPHILS # (AUTO) 2.7 (2.1-6.9); NEUTROPHILS % 45.4 % (38.7-80.0); PLATELET COUNT 183 x10e3/uL (140-360); RED BLOOD COUNT 4.25 x10e6/uL (3.6-5.1); RED CELL DISTRIBUTION WIDTH 13.2 % (11.7-14.4); WHITE BLOOD COUNT 5.95 x10e3/uL (4.8-10.8)
[2024-08-30 05:52] LABS: ANION GAP 10.7 mmol/L (8-16); CALCIUM 9.1 mg/dL (8.4-10.2); CREATININE, SERUM 0.84 mg/dL (0.57-1.11); POTASSIUM 3.7 mmol/L (3.5-5.1)
[2024-08-30 06:13] LABS: TROPONIN I 0.003 ng/mL (0-0.300)
[2024-08-30 07:16] VITALS: PULSE 70; RESP 18; O2SAT 92
[2024-08-30] MEDS: INSULIN LISPRO 100 UNIT/1 ML 3ML VIAL SQ SCH (07:30)
[2024-08-30 08:00] VITALS: BP 142/50; PULSE 70; RESP 18; TEMP 97.7; O2SAT 98
[2024-08-30] MEDS: ISOSORBIDE MONONITRATE 30 MG TAB CR PO SCH (08:43)
[2024-08-30] MEDS: ASPIRIN 81 MG CHEW TAB PO SCH (08:43)
[2024-08-30] MEDS: ATORVASTATIN 40 MG TAB PO SCH (08:44)
[2024-08-30] MEDS: METOPROLOL SUCCINATE 25 MG TAB XL PO SCH (08:44)
[2024-08-30] MEDS: CLOPIDOGREL BISULFATE 75 MG TAB PO SCH (08:44)
[2024-08-30] MEDS ORDERED: VITAMIN C 500500 MG PO (11:39)
[2024-08-30 12:06] VITALS: BP 106/54; PULSE 58; RESP 18; TEMP 97.6; O2SAT 100
[2024-08-30] MEDS ORDERED: TEMAZEPAM 15 MG CAP PO SCH (21:00)
== END 2024-08-30 12:50 | disposition home or self-care (01) ==
LOC: ER 11:37 → ERHOLD 13:00 → MED/SURG 15:56
PROVIDERS: ADMIT Internal Medicine; ATTEND Internal Medicine
DX: R07.89 Other chest pain (principal); R10.13 Epigastric pain; E11.65 Type 2 diabetes mellitus with hyperglycemia; Z79.4 Long term (current) use of insulin; I25.10 Atherosclerotic heart disease of native coronary artery without angina pectoris; E78.5 Hyperlipidemia, unspecified; I10 Essential (primary) hypertension; I73.9 Peripheral vascular disease, unspecified; Z95.5 Presence of coronary angioplasty implant and graft; Z79.82 Long term (current) use of aspirin
CPT/HCPCS: 36415; 71045; 80048; 80053; 82550; 82948 ×2; 83690 ×2; 84484 ×2; 85025 ×2; 93005; 94799 ×2; 99284; G0378 ×2